=== PATIENT | female | born 1975 | race Caucasian/White ===

== ENCOUNTER 2024-11-11 11:01 | Outpatient (REF) | payer OTHER, SELFPAY ==
[2024-11-11 17:43] LABS: MANUAL DIFF FLAG NO
[2024-11-11 17:46] LABS: Hematocrit 39.9 % (37.0-47.0); Hemoglobin 12.7 g/dl (12.0-16.0); Imm Gran Abs Auto 0.04 X10*3/uL (0.00-0.03); Imm Gran Pct Auto 0.4 % (0.0-0.4); Lymphocytes Absolute Auto 1.3 X10*3/uL (1.2-4.9); Mean Corpuscular HGB Conc 31.8 g/dl (31.0-35.0); Mean Corpuscular Hemoglobin 26.2 pg (27.0-33.0); Mean Corpuscular Volume 82.3 fL (80.0-98.0); NRBC Abs Auto 0.000 X10*3/uL (0.0-0.012); NRBC Pct Auto 0.0 /100WBC (0.0-0.2); Platelet Count 320 X10*3/uL (160-400); Red Blood Count 4.85 X10*6/uL (4.20-5.50); White Blood Count 9.1 X10*3/uL (4.8-10.8)
[2024-11-11 18:21] LABS: Alanine Aminotransferase 18 U/L (0-31); Aspartate Amino Transferase 37 U/L (5-31); Cholesterol 193 mg/dL (<200); Estimated Glomerular Filt Rate > 60; HDL Cholesterol 66 mg/dL (>40); Triglycerides 145 mg/dL (<150)
[2024-11-16 16:08] LABS: Glucose-6-Phosphate Dehydrogen 18.8 U/g Hgb (7.0-20.5)
== END 2024-11-11 11:02 | disposition home or self-care (01) ==
LOC: HO.HKASLDS 11:01
PROVIDERS: PCP Internal Medicine; Visit Provider Internal Medicine Rheumatology
DX: M05.10 Rheumatoid lung disease with rheumatoid arthritis of unspecified site (principal); Z79.899 Other long term (current) drug therapy
CPT/HCPCS: 36415; 80061; 82565; 82955; 84450; 84460; 85025; 85652; 86140; 99202

== ENCOUNTER 2024-11-11 11:01 | Outpatient (AMB) | payer OTHER, SELFPAY ==
--- NOTE | 2024-11-11 11:03 | A.OFFVIS_ITS ---
Vital Signs 11/11/24 11:06 Height 5 in Weight 178 lb 9.191 oz BMI 5021.5 BP 130/90 H Blood Pressure Location Rt brachial Position Sitting Pulse 70 Pulse Source Pulse Oximeter Pulse Oximetry (%) 99 Oxygen Delivery Method Room Air Intake Visit Reasons: RA/Hand wrist pain/PCP REF Intake Note: New Patient presents today with RA.Patient states that she is having pain in bilateral pain even taking xeljanz and put herself on a strict diet such as taking out red meat and sugars. Accompanied by: Self / Same As Patient Allergies Ramicade Allergy (Unknown, Uncoded 09/08/19 00:00) stomach upset HPI HPI RA/Hand wrist pain/PCP REF: Details: She takes prednisone 10mg 3-4 times a week for joint pain so she can be functional. She has 3 children with the youngest being 1 years old. She has a hard time getting them dressed. Therefore she takes prednisone which allows her to be more functional. On average her pain is 8 out of 10 intensity. On xeljanz since 02/2024. MS 4-5 hours. No recent illness. Dx seropositive RA 20 years ago. She developed ILD after RA dx while she was on methotrexate and was a smoker. She was then diagnosed with RA related interstitial lung disease after a biopsy, which did not reveal methotrexate related lung toxicity. She follows with pulmonology Dr. Veronique PEREZ with wheezing or phlem. She used to be a patient of Dr. Awad. On methotrexate she had hair loss. She was on etanercept with some benefit, which then lost efficacy. She had treatment failure with Humira. She had an infusion reaction with infliximab where she felt diaphoretic and vomited. She had secondary treatment failure with abatacept IV after 7 years of effectiveness. PFSH Medical History FH: cholecystectomy Rheumatoid arthritis Osteoarthritis Migraines Interstitial lung disease Fibromyalgia Surgical History Hx of tonsillectomy Previous section Physical Exam Vital Signs: Last Vital Signs Pulse 70 11/11/24 11:06 BP 130/90 H 11/11/24 11:06 Pulse Ox 99 11/11/24 11:06 Oxygen Delivery Method Room Air 11/11/24 11:06 BMI result Body Mass Index 5021.5 Const Other: General: Comfortable CVS: RRR Respiratory: clear to auscultation bilaterally. Good respiratory effort Skin: No lesions seen MSK: Tender to palpate bilateral MCPs, IPs, PIPs, wrists, left elbow, bilateral shoulders with synovitis of right 3rd MCP, 2nd and 3rd MCP, left wrists. She has synovitis of right knee. Tenderness of bilateral knees and MTPs. Bilateral hallux valgus present with tenderness. Assessment & Plan Assessment & Plan (1) Rheumatoid arthritis, seropositive: Comment: Inflammatory arthritis is not controlled. High disease activity per CDAI 46. She has failed treatment with tofacitinib. We discussed next steps with DMARD therapy. 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 Treatment for joint disease has to take into consideration with her underlying ILD and if it has progressed. We discussed treatment to control inflammatory arthritis with conventional DMARD therapy with hydroxychloroquine and sulfasalazine, which do not have risk of pulmonary toxicity. I would avoid leflunomide due to possi bility of pulmonary toxicity. Discussed risks, benefits and drug monitoring. Patient agrees with plan. We also discussed considering tocilizumab biologic treatment if patient's disease is not controlled with conventional DMARDs. Rheumatology history: Anti CCP antibody for 12.6, rheumatoid factor greater than 250. Diagnosed 20 years ago. Initially she was on methotrexate but it was discontinued due to concern of development of interstitial lung disease/pulmonary toxicity. Etanercept secondary treatment failure, Humira treatment failure, infliximab infusion reaction, abatacept secondary treatment failure after 7 years, tofacitinib February 2024 to current treatment failure. Code(s): M05.9 - Rheumatoid arthritis with rheumatoid factor, unspecified Category: Medical Plan: Information on DMARD therapy given to patient She will continue Xeljanz 5 mg b.i.d. until lab results are back She will take prednisone 10 mg prn joint pain and swelling with a goal to discontinue prednisone after inflammatory arthritis is controlled on DMARD therapy Labs for disease and drug monitoring ordered. After lab results are back, we will send prescription for hydroxychloroquine 400 mg daily and sulfasalazine 500 mg twice a day. She will then have labs 1 month after starting sulfasalazine with CBC, creatinine, AST and ALT. Patient will then call office for clinical update. If she is tolerating regimen without side effects, I will then increase sulfasalazine to 1000 mg twice a day. X-rays bilateral hands, feet and knees ordered Chest x-ray ordered for baseline Return to clinic in 3 months (2) Diffuse interstitial rheumatoid disease of lung: Code(s): M05.10 - Rheumatoid lung disease with rheumatoid arthritis of unspecified site Category: Medical Plan: Follow up with pulmonologists Dr. Hernández. I recommend that she have PFTs every 6 months. If it has been more than 2 years since she has had HRCT, I recommend follow-up study to evaluate for progression of ILD ? 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 Oszgyax-6-Ukeqziozm Dehydrogen Today M05.10 - Rheumatoid lung disease with rheumatoid arthritis of unspecified site, M05.9 - Rheumatoid arthritis with rheumatoid factor, unspecified XR Foot Nigel 3V Today M05.10 - Rheumatoid lung disease with rheumatoid arthritis of unspecified site, M05.9 - Rheumatoid arthritis with rheumatoid factor, unspecified XR Hand Bilat min 3v Today M05.10 - Rheumatoid lung disease with rheumatoid arthritis of unspecified site, M05.9 - Rheumatoid arthritis with rheumatoid factor, unspecified XR chest 2V Today M05.10 - Rheumatoid lung disease with rheumatoid arthritis of unspecified site, M05.9 - Rheumatoid arthritis with rheumatoid factor, unspecified XR Knee Nigel 3V Today M05.9 - Rheumatoid arthritis with rheumatoid factor, unspecified, Z79.899 - Other fci (current) drug therapy Erythrocyte Sedimentation Rate 1 Month Z79.899 - 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 Complete Blood Count Auto Diff Today Z79.899 - Other fci (current) drug therapy Erythrocyte Sedimentation Rate Today Z79.899 - Other fci (current) drug therapy Lipid Panel Today Z79.899 - 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 Complete Blood Count Auto Diff 1 Month Z79.899 - Other fci (current) drug therapy Alanine Aminotransferase 1 Month Z79.899 - 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 Aspartate Amino Transferase 1 Month Z79.899 - 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
[2024-11-11 11:06] VITALS: BP 130/90; PULSE 70; O2SAT 99; BMI 5021.5
--- OUTSIDE RECORDS SUMMARY | 2024-11-11 12:36 | XMS_ITS | Clinical Summary ---
Author Organization [facility] Address [id number] [place] [id number] Care Team Providers Care Neurodiagnostic Technologist Name Role Phone Mary Jane Suarez MD Primary Care Provider [phone] Encounters Date Type Department Care Team Description 08/11/[address] [place] [address] Hank Piper MD from Last 3 Months Surgical History Surgery Date Site/Laterality Comments CHOLECYSTECTOMY PROCEDURE: HISTORICAL CHOLECYSTECTOMY Medical History Medical History Date Comments Rheumatoid arthritis, adult ([facility] V24, [facility] V28) 07/24/2017 DX:Rheumatoid arthritis, liane lt ([facility]) Asthma 07/24/2017 DX:Asthma Chronic interstitial lung di sease ([facility] V24, [facility] V28) 07/24/2017 DX:Chronic interstitial ailyn g disease ([facility]) Chronic sinusitis 07/24/2017 DX:Chronic sin usitis Post-nasal drip 07/24/2017 DX:Post-nasal dr ip GERD (gastroesophageal reflux disease) 07/24/2017 DX:GERD (gastroesophageal reflux disease) Hiatal hernia 07/24/2017 DX:Hiatal hernia Social History Tobacco Use Types Packs/Day Years Used Date Smoking Tobacco: Former Cigarettes Smokeless Tobacco: Never Alcohol Use Standard Drinks/Week Comments No 0 (1 standard drink = 0.6 oz pur e alcohol) Comments Unknown Sex and Gender Information Value Date Recorded Sex Assigned at Not on file Legal Sex Female 12:37 PM EST Gender Identity Not on file Sexual Orientation Not on file Obstetrics History Last Filed Vital Signs Vital Sign Reading Time Taken Comments Blood Pressure 94/68 01/03/2024 10:49 AM EDT Si tting L Arm Pulse 74 01/03/2024 10:49 AM EDT Temperature - - Respiratory Rate - - Oxygen Saturation - - Inhaled Oxygen Concentration - - Weight 90.7 kg (200 lb) 01/03/2024 10:49 AM EDT Height 165.1 cm (5' 5 ) 01/03/2024 10:49 AM EDT Body Mass Index 33.28 01/03/2024 10:49 AM EDT Plan of Treatment Upcoming Encounters Date Type Department Care Team (Late st Contact Info) Description 12/19/2024 11:30 AM EDT Office Visit Pulmonolgy - [place] [address] [place] [address] Hank Piper MD [address] [place] [phone] Health Maintenance Due Date Last Done Comments Breast Cancer Screening 1975 DTaP,Tdap,and Td Vaccines (1 - Tdap) 01/10/1995 Hepatitis B Vaccines (1 of 3 - 19+ 3-dose series) 01/10/1995 Pneumococcal Vaccine: Pediatrics (0 to 5 Years) and At-Risk Patients (6 to 49 Years) (1 of 2 - PCV) 01/10/1995 Cervical Cancer Screening: P ap Smear 01/10/1997 Colorectal Cancer Screening: Colonoscopy 02/18/2022 HIV Screening 02/18/2022 Hepatitis C Screening 02/18/2022 Social Influencers of Health Screening 02/18/2022 Depression Screening 03/12/2024 COVID-19 Vaccine (4 - 2024-2 6 season) 2024 04/22/2021, 07/02/2020, 06/04/2020 Influenza Vaccine (#1) 2024 HIB Vaccines Aged Out No longer eligi ble based on patient's age to complete this topic HPV Vaccines Aged Out No longer eligi ble based on patient's age to complete this topic Hepatitis A Vaccines Aged Out No long er eligible based on patient's age to complete this topic IPV Vaccines Aged Out No longer eligi ble based on patient's age to complete this topic MMR Vaccines Aged Out No longer eligi ble based on patient's age to complete this topic Meningococcal ACWY Vaccine Aged Out N o longer eligible based on patient's age to complete this topic Meningococcal B Vaccine Aged Out No l onger eligible based on patient's age to complete this topic RSV Immunization Patients Under 20 months Aged Out No longer eligible b ased on patient's age to complete this topic Varicella Vaccines Aged Out No longer eligible based on patient's age to complete this topic Care Teams Neurodiagnostic Technologist Relationship Specialty Start Date End Date Mary Jane Suarez MD [address] [place] [id number] PCP - General Internal Medicine 05/28/12
--- OUTSIDE RECORDS SUMMARY | 2024-11-11 12:36 | XMS_ITS | Encounter Summary ---
Author Organization [facility] Address [address] [place] [phone] Phone Care Team Providers Care Bottle Gauger Name Role Phone Mary Jane Suarez MD Primary Care Provider [phone] Encounter Details Date Type Department Care Team (Late st Contact Info) Description 04/19/2024 Procedure Pass [facility], Ct Scan - [facility] [address] [place] [address] Social History Tobacco Use Types Packs/Day Years Used Date Smoking Tobacco: Former Cigarettes Smokeless Tobacco: Never Alcohol Use Standard Drinks/Week Comments Never 0 (1 standard drink = 0.6 oz pur e alcohol) Education Answer Date Recorded Are you interested in more education? Not on hayley e 12/14/2022 Are you concerned about learning? Not on file 12/14/2022 No 12/14/2022 No 12/14/2022 Digital Access Answer Date Recorded No 12/14/2022 No 12/14/2022 Reliable internet access at home? Not on file 12/14/2022 Device with a working camera? Not on file Intimate Partner Violence Answer Date R ecorded Are you denied basic needs s uch as food, clothing, or medical care? No 04/19/2024 In the past 12 months have y ou been in a relationship with a person who hurts, threatens, or tries to control you? No 04/19/2024 Are you denied basic needs s uch as food, clothing, or medical care? No 04/19/2024 In the past 12 months have y ou been in a relationship with a person who hurts, threatens, or tries to control you? No 04/19/2024 Comments No Sex and Gender Information Value Date Recorded Sex Assigned at Female 04/19/2024 3:25 AM EST Legal Sex Female 11:27 AM EDT Gender Identity Patient Doesn't Know 04/19/2024 3:25 AM EST Sexual Orientation Choose not to disclose 2024 3:25 AM EST documented as of this encounter Functional Status * Calculated C-SSRS Risk Score (Lifetime/Recent) Answer Date of Assessment Author No Risk Indicated 04/19/2024 7:11 AM Valorie Dailey RN * [place] Suicide Severity Rating Scale (Screener/Recent Self-Report) Question Answer Date of Assessment Author 1. Wish to be (Past 1 Month) No 04/19/2024 7:11 AM Kaylen Greenfield RN 2. Non-Specific Active Suicidal Thoughts (Past 1 Month) No 04/19/2024 7:11 AM Kaylen Greenfield RN 6. Suicidal Behavior (Lifetime) No 04/19/2024 7:11 AM Kaylen Greenfield RN documented as of this encounter Plan of Treatment Not on file documented as of this encounter Visit Diagnoses Not on filedocumented in this encounter Additional Health Concerns Infection Onset Date Last Indicated Resolved Time CoV-Risk 04/16/2024 04/16/2024 04/27/2024 1:22 AM EST documented as of this encounter Care Teams Bottle Gauger Relationship Specialty Start Date End Date Mary Jane Suarez MD [address], [place] [address] PCP - General Internal Medicine 12/04/22 documented as of this encounter Additional Source Comments The information contained in this document represents components of the legal health record. It is not the complete legal health record.[facility]
--- OUTSIDE RECORDS SUMMARY | 2024-11-11 12:36 | XMS_ITS | Clinical Summary ---
Author Organization [facility] Address [address] [place] [phone] Phone Care Team Providers Care Technical Business Analyst Name Role Phone Mary Jane Suarez MD Primary Care Provider [phone] Allergies Active Allergy Reactions Criticality Noted Date Comments Infliximab Medium 12/25/2022 Nausea and vomiting Medications losartan (COZAAR) 25 MG tabletIndicatio ns:hypertension Take 25 mg by mouth daily. Indications: high blood pressure Active albuterol-budes onide 90-80 mcg/actuation HFAAIndications :bronchospasm prevention with asthma,as needed Take 1 Bottle by nebulization daily. Indications: bronchospasm prevention with asthma, as needed Active ferrous sulfate 325 mg (65 mg augustine iron) tablet Take 1 tablet by mouth daily. Active ascorbic acid, vitamin C, (VITAMIN C) 500 MG tablet Take 500 mg by mouth daily. Active cholecalciferol (VITAMIN D3) 2,000 unit capsule Take 2,000 Units by mouth daily. Active MAGNESIUM ORAL Take by mouth as needed. Active esomeprazole (NEXIUM) 40 MG capsule Take 80 mg by mouth daily. Active folic acid (FOLVITE) 1 MG tablet Take 1,000 mcg by mouth daily. Active tofacitinib (XELJANZ) 5 mg Tab tabletIndicatio ns:Rheumatoid arthritis involving multiple sites with positive rheumatoid factor Take 1 tablet (5 mg total) by mouth 2 (two) times a day. 60 tablet 11 4 Active predniSONE (DELTASONE) 10 MG tabletIndicatio ns:Rheumatoid arthritis flare TAKE 1 TABLET (10 MG TOTAL) BY MOUTH DAILY WITH BREAKFAST. 30 tablet 5 Active Additional Information Patient taking differently:10 mg OralAs needed, Reported on 08/06/2024 predniSONE (DELTASONE) 5 MG tabletIndicatio ns:Rheumatoid arthritis involving multiple sites with positive rheumatoid factor Take 3 tablets (15 mg total) by mouth daily with breakfast for 7 days, THEN 2 tablets (10 mg total) daily with breakfast for 9 days, THEN 1 tablet (5 mg total) daily with breakfast for 14 days. 53 tablet 5 Active leflunomide (ARAVA) 20 MG tabletIndicatio ns:Rheumatoid arthritis involving multiple sites with positive rheumatoid factor Take once daily with food as follows, one half tab x 4 days, then 1 full tab thereafter 30 tablet 5 Active Additional Information Patient not taking.Reported on 08/08/2024 Active Problems Problem Noted Date Diagnosed Date High risk medication use 08/06/2024 Overview (08/06/2024): Chest x-ray 04/2024 reviewed Assessment & Plan (08/06/2024 1:09 PM EDT): Updated labs prior to possible change from Rah inhibitor to biologic agent +/ nonbiologic DMARD. She is not currently at risk of . Long-term current use of tofacitinib 04/14/2024 Assessment & Plan (04/14/2024 12:21 PM EST): Currently on hold due to upper respiratory congestion. Once assured no influenza, RSV or COVID- 19 and symptoms resolve may need to restart daily Xeljanz. Monitor for any unusual abdominal pain, nausea, vomiting, melena or hematochezia. Get monitoring labs today on her way out of my office and prior to next visit in 3 months-standing orders in epic Class 1 obesity due to exces s calories with serious comorbidity and body mass index (BMI) of 31.0 to 31.9 in adult 04/14/2024 Assessment & Plan (04/14/2024 12:22 PM EST): Congratulations on 6 pounds weight loss from 198 on 01/23/2024 down to 192 today and keep it off. Continue diligent portion control. Limit concentrated sugars, saturated fats and calories in the diet. Keep well-hydrated. If unable to achieve expected goal consider formal dietary/nutritional support. Acute rhinitis 04/14/2024 Assessment & Plan (04/14/2024 12:23 PM EST): If not able to be checked by PCP and symptoms not improving despite conservative measures including proper hydration, inhaling warm vapor twice daily, using Savannah pot, Vicks and Sudafed consider urgent care checkup for influenza, COVID-19 and RSV at urgent care On abatacept therapy 01/23/2024 Assessment & Plan (02/19/2024 2:30 PM EST): Monitor for unusual fever, chills, night sweats, cough, diarrhea. Avoid sick contacts and keep up to date on age-appropriate screenings and preventive strategies including vaccinations. Hold Orencia if feeling sick, running fever or taking antibiotics. Make sure to inform any new MD, PA, K 12 PRINCIPAL about treatment with Orencia particularly in emergency situations. Sicca syndrome 01/23/2024 Overview (08/06/2024): SSA/SSB negative/negative 01/2024 Assessment & Plan (04/14/2024 11:41 AM EST): Keep well-hydrated. Avoid spicy and acidic foods. Diligent eyes and mouth hygiene. Regular ocular and dental checkups. Assessment & Plan (02/19/2024 2:28 PM EST): Keep well-hydrated. Avoid spicy and acidic foods. Diligent eyes and mouth hygiene. Regular ocular and dental checkups. Primary osteoarthritis involving multiple joints 02/12/2023 Assessment & Plan (04/14/2024 11:41 AM EST): Continue joint protection, energy conservation. Gentle, regular exercise routine. Avoid falls, injuries, overuse. Work on bringing her body weight into ideal range for her height. She may benefit from topical cream such as Arnica, Biofreeze, Aspercreme versus medicated patches such as salonpas, icy hot patch 2-3 times daily and if necessary at bedtime x 3 weeks. She may take Tylenol 650 mg up to 3 times daily as needed for joint pain. Assessment & Plan (02/19/2024 2:27 PM EST): Continue joint protection, energy conservation. Gentle, regular exercise routine. Avoid falls, injuries, overuse. Work on bringing her body weight into ideal range for her height. She may benefit from topical cream such as Arnica, Biofreeze, Aspercreme versus medicated patches such as salonpas, icy hot patch 2-3 times daily and if necessary at bedtime x 3 weeks. She may take Tylenol 650 mg up to 3 times daily as needed for joint pain. Assessment & Plan (08/14/2023 10:56 AM EDT): Osteoarthritis in multiple joints exacerbated by physical activity. She can safely take Tylenol 650 as needed. Assessment & Plan (02/12/2023 1:37 PM EST): Osteoarthritis in multiple joints only symptomatic with prolonged activity. She can continue with Tylenol as needed. Medication monitoring encounter 02/12/2023 Assessment & Plan (02/12/2023 1:37 PM EST): Surveillance labs to be done today. Rheumatoid arthritis involvi ng multiple sites with positive rheumatoid factor 12/14/2022 Overview (08/06/2024): Rheumatoid arthritis-ILD; dx'd at 29 yrs of age (p/w ILD); follows with corporate director of human resources Dr. Piper through [facility] Medication hx: Methotrexate resulted in hair loss / poorly tolerated Etanercept - lost efficacy Adalimumab - tx failure Infliximab - infusion reaction Abatacept IV for many years, discontinued due to progressive treatment failure starting September 2023 Tofacitinib 02/2024 to current No h/o tocilizumab, sarilumab, leflunomide, or rituximab Assessment & Plan (08/06/2024 1:15 PM EDT): Prolonged morning stiffness and active synovitis of multiple small and intermediate joints bilaterally on tofacitinib monotherapy. We discussed but deferred intra-articular steroid to her left wrist today per patient preference. She will have updated labs, and may require short-term prednisone taper. I have provided her written information on leflunomide, tocilizumab, and rituximab. She stated she would like to resume abatacept subcutaneously, which was previously effective her for her for many years. However, per chart review, she did experience treatment failure with this medication last year, so I am reluctant to resume it. If she is able to tolerate leflunomide to gather with a biologic agent that would likely be more effective than monotherapy for this woman with extra-articular disease. She reports being asymptomatic with respect to her ILD, though ideally I would coordinate care with her established corporate director of human resources. Assessment & Plan (04/14/2024 12:18 PM EST): She was very well-controlled on every 4 weeks Orencia infusions in August 2023 however despite increasing dose from 750 to 1000 mg every 4 weeks beginning in September 2023 she had more stiffness in the morning and lots more swelling, warmth, stiffness in the joints of her hands and wrists in addition to elevated ESR and CRP. She has switched monthly IV Orencia to daily Xeljanz (tofacitinib) in early February 2024 and tolerates it well She is holding it for the last 3 days due to nasal and sinus congestion. Continue joint protection, energy conservation in addition to gentle, regular exercise routine as educated in OT and PT. Avoid falls, injuries, overuse and sick contacts. Get monitoring labs prior to next visit in 3 months and call if problems or questions in the interim. Assessment & Plan (02/19/2024 2:26 PM EST): She was very well-controlled on every 4 weeks Orencia infusions in August 2023 however despite increasing dose from 750 to 1000 mg every 4 weeks beginning in September 2023 she has more stiffness in the morning and lots more swelling, warmth, stiffness in the joints of her hands and wrists in addition to elevated ESR and CRP. She is interested in trying a different medication if possible by mouth hoping for better control of disease and no need to come to the hospital every 4 weeks for infusion. I have offered her oral Rah inhibitor Xeljanz (tofacitinib) 5 mg twice daily versus Rinvoq (upadacitinib) 15 mg daily and requested couple of additional tests including Sjogren's antibody in view of reported dryness in her eyes and mouth. She is educated to update her vaccination status prior to starting either Xeljanz or Rinvoq. Continue joint protection, energy conservation in addition to gentle, regular exercise routine as educated in OT and PT. Avoid falls, injuries, overuse and sick contacts. Get monitoring labs prior to next visit in 2 months and call if problems or questions in the interim. Assessment & Plan (08/14/2023 10:56 AM EDT): Seropositive rheumatoid arthritis very well-controlled on Orencia infusions every 4 weeks. Her next infusion will be in September. I adjusted the dose from 750 mg to 1000 mg. She will have labs drawn at her next infusion. Assessment & Plan (02/12/2023 1:37 PM EST): Seropositive rheumatoid arthritis well-controlled on Orencia every 4 weeks with no active synovitis or swelling. Her last infusion was sometime in mid December adequately [facility] infusion. She has another infusion appointment coming up in the middle of February. She has stable interstitial lung disease with stable dyspnea on exertion and follows with Dr. Piper. Encounters Date Type Department Care Team Description 09/11/2024 Telephone [facility] Rheumatology [address] [place] [address] [place] [address] Franci Tejeda MD, MPH Medication Refill 09/09/2024 Refill [facility] Rheumatology [address] [place] [address] [place] [address] Franci Tejeda MD, MPH Medication Refill 09/02/2024 Telephone [facility] Rheumatology [address] [place] [address] [place] [address] Maria Victoria Desir MD Flare Up 08/11/2024 Orders Only [facility] Rheumatology [address] [place] [address] [place] [address] Provider, MD Billy from Last 3 Months Family History Medical History Relation Comments No Known Problems Daughter Diabetes Father Hypertension Father No Known Problems Mother Relation Status Comments Daughter Alive Father Mother Alive Social History Tobacco Use Types Packs/Day Years Used Date Smoking Tobacco: Former Cigarettes Smokeless Tobacco: Never Tobacco Cessation:Counseling Given: Not Answered Alcohol Use Standard Drinks/Week Comments Never 0 [...] not to disclose 2024 3:25 AM EST Last Filed Vital Signs Vital Sign Reading Time Taken Comments Blood Pressure 122/72 08/06/2024 9:35 AM EDT Pulse 64 08/06/2024 9:35 AM EDT Temperature 36.6 C (97.8 F) 04/19/2024 1:18 PM EST Respiratory Rate 16 04/19/2024 1:18 PM EST Oxygen Saturation 98% 08/06/2024 9:35 AM EDT Inhaled Oxygen Concentration - - Weight 81.2 kg (179 lb) 08/06/2024 9:35 AM EDT Height 165.1 cm (5' 5 ) 08/06/2024 9:35 AM EDT Body Mass Index 29.79 08/06/2024 9:35 AM EDT Plan of Treatment Health Maintenance Due Date Last Done Comments Adult Td,Tdap Booster 1976 LIPID PANEL 1976 DEPRESSION SCREENING 1988 SMOKING Hx and SMOKELESS TOBACCO SCREENING 01/10/1989 HIV ONE-TIME SCREENING (18-65 YEARS) 01/10/1994 PAP SMEAR 01/10/1997 MAMMOGRAM 2016 COLOGUARD 01/10/2021 COLONOSCOPY 01/10/2021 COLORECTAL CANCER SCREENING 01/10/2021 FIT TEST 01/10/2021 FOBT 01/10/2021 SIGMOIDOSCOPY 01/10/2021 VIRTUAL COLONOSCOPY 01/10/2021 COVID-19 VACCINE ( season) 2023 04/09/2022, 04/22/2021, 07/02/2020, Additional history exists CREATININE LEVEL 08/06/2025 08/06/2024, 07/2024, 04/14/2024, Additional history exists POTASSIUM LEVEL 08/06/2025 08/06/2024, 020 07/2024, 04/14/2024, Additional history exists SCREENING FOR DIABETES 08/07/2027 08/06/2024 PNEUMOCOCCAL VACCINES (0-49 years) Completed 07/02/2023 HEPATITIS C SCREENING Completed 08/06/2024 HEPATITIS A VACCINES Aged Out No long er eligible based on patient's age to complete this topic HIB VACCINES Aged Out No longer eligi ble based on patient's age to complete this topic MENINGOCOCCAL VACCINES (ACWY) Aged Out No longer eligible based on patient's age to complete this topic MENINGOCOCCAL VACCINES (B) Aged Out N o longer eligible based on patient's age to complete this topic Medical Devices Not on file Procedures Procedure Name Priority Date/Time Associated Diagnosis Comments HEPATITIS C ANTIBODY, QUALITATIVE Routine 08/06/2024 10:36 AM EDT High risk medication use COMPREHENSIVE METABOLIC PANEL Routine 08/06/2024 10:36 AM EDT Rheumatoid arthritis involving multiple sites with positive rheumatoid factor High risk medication use from Last 3 Months or Most Recently Relevant to Health Maintenance Results * Comprehensive metabolic panel (08/06/2024 10:36 AM EDT) SODIUM 135 133 - 146 mmol/L [facility] POTASSIUM 3.6 3.3 - 5.1 mmol/L [facility] CHLORIDE 100 96 - 108 mmol/L [facility] CO2 26 21 - 35 mmol/L [facility] BUN 12 6 - 19 mg/dL [facility] CREATININE 0.60 0.5 - 1.5 mg/dL [facility] GLUCOSE 85 70 - 99 mg/dL [facility] ALBUMIN 4.3 3.9 - 4.8 g/dL [facility] TOTAL PROTEIN 7.8 6.5 - 8.0 g/dL [facility] CALCIUM 9.5 8.4 - 10.3 mg/dL [facility] ALKALINE PHOSPHATASE 75 39 - 117 U/L [facility] TOTAL BILIRUBIN 0.4 0.0 - 1.2 mg/dL [facility] AST 25 0 - 37 U/L [facility] ALT 10 0 - 40 U/L [facility] GLOBULIN 3.5 1 - 4.8 g/dL [facility] EGFR 111 >59 mL/min/1.7 3m2 [facility] Comment:Estimated glomerular filtration rate calculated using the CKD-EPI refit equation. ANION GAP 13 10 - 20 mmol/L [facility] Blood 08/06/2024 10:3 6 AM EDT 08/06/2024 10:50 AM EDT Franci Tejeda MD, MPH LAB BLOOD ORDERABLES Fin al Result Performing Organization Address City/[facility] Co de Phone Number [address] [address] * Hepatitis C antibody, qualitative (08/06/2024 10:36 AM EDT) HCV NON-REACTIV E NON-REACTI VE [facility] Blood 08/06/2024 10:3 6 AM EDT 08/06/2024 10:50 AM EDT Franci Tejeda MD, MPH LAB BLOOD ORDERABLES Fin al Result Performing Organization Address City/[facility]/ZIP Co de Phone Number [facility] [address] [place] [address] from Last 3 Months or Most Recently Relevant to Health Maintenance Insurance [address] [address] [employer] Care Teams Technical Business Analyst Relationship Specialty Start Date End Date Mary Jane Suarez MD [address] [place] [address] PCP - General Internal Medicine 12/04/22 Additional Source Comments The information contained in this document represents components of the legal health record. It is not the complete legal health record.[facility]
== END 2024-11-11 11:56 | disposition home or self-care (01) ==
LOC: HO.RHES 11:01
PROVIDERS: PCP Internal Medicine; Visit Provider Internal Medicine Rheumatology
DX: M05.9 Rheumatoid arthritis with rheumatoid factor, unspecified (principal); M05.10 Rheumatoid lung disease with rheumatoid arthritis of unspecified site; Z79.899 Other long term (current) drug therapy
CPT/HCPCS: 99204; G2211

== ENCOUNTER 2024-11-25 11:04 | Outpatient (REF) | payer OTHER, SELFPAY ==
[2024-11-25 14:17] LABS: Alanine Aminotransferase 15 U/L (0-31); Aspartate Amino Transferase 22 U/L (5-31)
--- OUTSIDE RECORDS SUMMARY | 2024-11-25 15:04 | XMS_ITS | Clinical Summary ---
Author Organization [facility] Address [address] [place] [phone] Care Team Providers Care Inclusion Special Education Teacher Name Role Phone Mary Jane Suarez MD Primary Care Provider [phone] Encounters Date Type Department Care Team Description 11/18/[address] [place] [address] Hank Piper MD from Last 3 Months Surgical History Surgery Date Site/Laterality Comments CHOLECYSTECTOMY PROCEDURE: HISTORICAL CHOLECYSTECTOMY Medical History Medical History Date Comments Rheumatoid arthritis, adult ([facility] V24, [facility] V28) 07/24/2017 DX:Rheumatoid arthritis, liane lt ([facility]) Asthma 07/24/2017 DX:Asthma Chronic interstitial lung di sease ([facility] V24, [facility] V28) 07/24/2017 DX:Chronic interstitial ailyn g disease ([facility]) Chronic sinusitis 07/24/2017 DX:Chronic sin usitis Post-nasal [...] Care Team (Late st Contact Info) Description 12/09/2024 11:00 AM EDT Appointment [facility] Pulmonary [address] [place] [phone] 12/19/2024 11:30 AM EDT Office Visit Pulmonolgy - [place] 175 [facility] [address] [place] [phone] Hank Piper MD 175 [facility] [address] [place] [address] Health Maintenance Due Date Last Done Comments [...] on patient's age to complete this topic Insurance MEDICAID - [place] Care Teams Inclusion Special Education Teacher Relationship Specialty Start Date End Date Mary Jane Suarez MD [address] [place] [address] PCP - General Internal Medicine 05/28/12
--- OUTSIDE RECORDS SUMMARY | 2024-11-25 15:04 | XMS_ITS | Encounter Summary ---
Author Organization [facility] Address [address] [place] [phone] Care Team Providers Care Distribution Manager Name Role Phone Mary Jane Suarez MD Primary Care Provider [phone] Reason for Visit * Reason Onset Date Comments Rheumatology notes 11/18/2024 Encounter Details Date Type Department Care Team (Late st Contact Info) Description [facility]/18[facility] [place] [facility] [address] [place] [phone] Hank Piper MD 175 [facility] [address] [place] [address] Social History Tobacco Use Types Packs/Day Years Used Date Smoking Tobacco: Former Cigarettes Smokeless Tobacco: Never Alcohol Use Standard Drinks/Week Comments No 0 (1 standard drink = 0.6 oz pur e alcohol) Comments Unknown Sex and Gender Information Value Date Recorded Sex Assigned at Not on file Legal Sex Female 12:37 PM EST Gender Identity Not on file Sexual Orientation Not on file documented as of this encounter Progress Notes * Hank Piper MD - 11/18/2024 9:03 PM EDT Please schedule her for pft prior to visit * Reuben Lozano MA - 11/18/2024 1:46 PM EDT Printed and on Dr. Piper desk. Please review. * Yun Castillo - 11/18/2024 1:04 PM EDT [facility] Rhe[facility]ology office notes received. Attached to encounter documented in this encounter Plan of Treatment Upcoming Encounters Date Type Department Care Team (Late st Contact Info) Description 12/09/2024 11:00 AM EDT Appointment [facility] Pulmonary [address] [place] [address] 12/19/2024 11:30 AM EDT Office Visit Pulmonolgy - [place] [address] [phone] Hank Piper MD [address] [address] documented as of this encounter Visit Diagnoses Not on filedocumented in this encounter Care Teams Distribution Manager Relationship Specialty Start Date End Date Mary Jane Suarez MD [address] [place] [address] PCP - General Internal Medicine 05/28/12 documented as of this encounter
--- OUTSIDE RECORDS SUMMARY | 2024-11-25 15:04 | XMS_ITS | Encounter Summary ---
Author Organization [facility] Address [address] [place] [phone] Phone Care Team Providers Care Security System Installer Name Role Phone Mary Jane Suarez MD Primary Care Provider [phone] Encounter Details Date Type Department Care Team (Late st Contact Info) Description 04/19/2024 Procedure Pass [facility], Ct Scan - [facility] [address] [place] [address] Social History Tobacco Use Types Packs/Day Years [...] 04/19/2024 7:11 AM Valorie Dailey RN * [place] Suicide Severity Rating Scale (Screener/Recent Self-Report) Question [...] documented as of this encounter Care Teams Security System Installer Relationship Specialty Start Date End Date Mary Jane Suarez MD [address], [place] [address] PCP - General Internal Medicine 12/04/22 documented as of this encounter Additional Source Comments The information contained in this document represents components of the legal health record. It is not the complete legal health record.[facility]
== END 2024-11-25 11:05 | disposition home or self-care (01) ==
LOC: HO.HKASLDS 11:04
PROVIDERS: Visit Provider Internal Medicine Rheumatology
DX: R74.01 Elevation of levels of liver transaminase levels (principal)
CPT/HCPCS: 36415; 84450; 84460

== ENCOUNTER 2024-12-01 08:41 | Outpatient (REF) | payer OTHER, SELFPAY ==
--- OUTSIDE RECORDS SUMMARY | 2024-12-01 10:04 | XMS_ITS | Clinical Summary ---
Author Organization [facility] Address [address] [place] [phone] Care Team Providers Care Sandblaster Paint Sprayer Name Role Phone Mary Jane Suarez MD Primary Care Provider [phone] Encounters Date Type Department Care Team Description 11/18/2024 Telephone Pulmonology - [address] [place] [address] Hank Piper MD from Last 3 Months Surgical History Surgery Date Site/Laterality Comments CHOLECYSTECTOMY PROCEDURE: HISTORICAL CHOLECYSTECTOMY Medical History Medical History Date Comments Rheumatoid arthritis, adult ([facility] V24, [facility] V28) 07/24/2017 DX:Rheumatoid arthritis, liane lt ([facility]) Asthma 07/24/2017 DX:Asthma Chronic interstitial lung di sease ([facility] V24, [facility] V28) 07/24/2017 DX:Chronic interstitial ailyn g disease ([facility]) Chronic sinusitis 07/24/2017 DX:Chronic sin usitis [...] Description 12/09/2024 11:00 AM EDT Appointment [facility] Pulmonary [address] [place] [phone] 12/19/2024 11:30 AM EDT Office Visit Pulmonology - [place] 175 [facility] [address] [place] [phone] Hank Piper MD 175 [facility] [address] [place] [address] Health Maintenance Due Date Last Done Comments [...] 04/22/2021, 07/02/2020, 06/04/2020 Influenza Vaccine (#1) 2024 RSV Immunization Adult Patients (1 - 1-dose 75+ series) 01/10/2051 HIB Vaccines Aged Out No longer eligi [...] topic Insurance MEDICAID - [place] Care Teams Sandblaster Paint Sprayer Relationship Specialty Start Date End Date Mary Jane Suarez MD [address] [place] [address] PCP - General Internal Medicine 05/28/12
--- OUTSIDE RECORDS SUMMARY | 2024-12-01 10:04 | XMS_ITS | Clinical Summary ---
Author Organization [facility] Address [address] [place] [address] Phone Care Team Providers Care Motor Racer Name Role Phone Mary Jane Suarez MD Primary Care Provider [phone] Allergies Active Allergy Reactions Criticality Noted Date Comments Infliximab Medium 12/25/2022 Nausea and vomiting Medications losartan (COZAAR) 25 MG tabletIndicatio ns:hypertension Take 25 mg by mouth daily. Indications: high blood pressure Active albuterol-budes onide 90-80 mcg/actuation HFAAIndications :bronchospasm prevention with asthma,as needed Take 1 Bottle by nebulization daily. Indications: bronchospasm prevention with asthma, as needed Active ferrous sulfate 325 mg (65 mg council iron) tablet Take 1 tablet by mouth [...] hydration, inhaling warm vapor twice daily, using Mary pot, Vicks and Sudafed consider urgent care [...] sure to inform any new MD, PA, WEAPONS AND TACTICS INSTRUCTOR about treatment with Orencia particularly in emergency [...] yrs of age (p/w ILD); follows with cycle counter Dr. Piper through [facility] Medication hx: Methotrexate resulted in hair [...] I would coordinate care with her established cycle counter. Assessment & Plan (04/14/2024 12:18 PM EST): [...] infusion was sometime in mid December adequately [place] infusion. She has another infusion appointment coming up in the middle of February. She has stable interstitial lung disease with stable dyspnea on exertion and follows with Dr. Piper. Encounters Date Type Department Care Team Description 12/01/2024 Refill [facility] Rheumatology [address] [place] [address] [place] [address] Maria Victoria Desir MD Medication Refill 09/11/2024 Telephone [facility] Rheumatology [address] [place] [address] [place] [address] Franci Tejeda MD, MPH Medication Refill 09/09/2024 Refill [facility] Rheumatology [address] [place] [address] [place] [address] Franci Tejeda MD, MPH Medication Refill 09/02/2024 Telephone [facility] Rheumatology [address] [place] [address] [place] [address] Maria Victoria Desir MD Flare Up from Last 3 Months Family History Medical [...] FOBT 01/10/2021 SIGMOIDOSCOPY 01/10/2021 VIRTUAL COLONOSCOPY 01/10/2021 INFLUENZA VACCINE (#1) 2024 , 12/15/2022, 12/14/2021 COVID-19 VACCINE ( season) 2024 04/09/2022, 04/22/2021, 07/02/2020, Additional history exists CREATININE LEVEL 08/06/2025 08/06/2024, 07/2024, 04/14/2024, Additional history exists POTASSIUM LEVEL 08/06/2025 08/06/2024, 02/0 07/2024, 04/14/2024, Additional history exists SCREENING FOR [...] EDT) SODIUM 135 133 - 146 mmol/L [facility] POTASSIUM 3.6 3.3 - 5.1 mmol/L [facility] CHLORIDE 100 96 - 108 mmol/L [facility] CO2 26 21 - 35 mmol/L [facility] BUN 12 6 - 19 mg/dL [facility] CREATININE 0.60 0.5 - 1.5 mg/dL [facility] GLUCOSE 85 70 - 99 mg/dL [facility] ALBUMIN 4.3 3.9 - 4.8 g/dL [facility] TOTAL PROTEIN 7.8 6.5 - 8.0 g/dL [facility] CALCIUM 9.5 8.4 - 10.3 mg/dL [facility] ALKALINE PHOSPHATASE 75 39 - 117 U/L [facility] TOTAL BILIRUBIN 0.4 0.0 - 1.2 mg/dL [facility] AST 25 0 - 37 U/L [facility] ALT 10 0 - 40 U/L [facility] GLOBULIN 3.5 1 - 4.8 g/dL [facility] EGFR 111 >59 mL/min/1.7 3m2 [facility] Comment:Estimated glomerular filtration rate calculated using the CKD-EPI refit equation. ANION GAP 13 10 - 20 mmol/L [facility] Blood 08/06/2024 10:3 6 AM EDT 08/06/2024 10:50 AM EDT us Franci Tejeda MD, MPH LAB BLOOD ORDERABLES Fin al Result [facility] [address] [place] [address] * Hepatitis C antibody, qualitative (08/06/2024 10:36 AM EDT) HCV NON-REACTIV E NON-REACTI VE [facility] Blood 08/06/2024 10:3 6 AM EDT 08/06/2024 10:50 AM EDT Franci Tejeda MD, MPH LAB BLOOD ORDERABLES Fin al Result [address] [address] from Last 3 Months or Most Recently Relevant to Health Maintenance [place] [address] [place] [address] [facility] ACO Care Teams Motor Racer Relationship Specialty Start Date End Date Mary Jane Suarez MD [address] [place] [address] PCP - General Internal Medicine 12/04/22 Additional Source Comments The information contained in this document represents components of the legal health record. It is not the complete legal health record.[facility]
--- OUTSIDE RECORDS SUMMARY | 2024-12-01 10:04 | XMS_ITS | Encounter Summary ---
Author Organization [facility] Address [address] [place] [address] Care Team Providers Care Service Station Equipment Mechanic Name Role Phone Mary Jane Suarez MD Primary Care Provider [phone] Reason for Visit * Reason Onset Date Comments Rheumatology notes 11/18/2024 Encounter Details Date Type Department Care Team (Late st Contact Info) Description 11/18/2024 Telephone Pulmonology - [place] [address] [facility] [address] [place] [phone] Hank Piper MD 175 [facility] [address] [place] [address] Social History Tobacco Use Types Packs/Day Years [...] Yun Castillo - 11/18/2024 1:04 PM EDT [facility] [place] office notes received. Attached to encounter documented in this encounter Plan of Treatment Upcoming Encounters Date Type Department Care Team (Late st Contact Info) Description 12/09/2024 11:00 AM EDT Appointment [facility] Pulmonary [address] [place] [address] 12/19/2024 11:30 AM EDT Office Visit Pulmonology - [place] [address] [address] Hank Piper MD [address] [address] documented as of this encounter Visit Diagnoses Not on filedocumented in this encounter Care Teams Service Station Equipment Mechanic Relationship Specialty Start Date End Date Mary Jane Suarez MD [address] [place] [address] PCP - General Internal Medicine 05/28/12 documented as of this encounter
--- OUTSIDE RECORDS SUMMARY | 2024-12-01 10:04 | XMS_ITS | Encounter Summary ---
Author Organization [facility] Address [address] [place] [address] Phone Care Team Providers Care Shop Cooper Name Role Phone Mary Jane Suarez MD Primary Care Provider [phone] Encounter Details Date Type Department Care Team (Late st Contact Info) Description 04/19/2024 Procedure Pass [facility], Ct Scan - [facility] [address] [place] [address] Social History Tobacco Use Types Packs/Day Years [...] 04/19/2024 7:11 AM Valorie Dailey RN * [place] Suicide Severity Rating Scale (Screener/Recent Self-Report) Question [...] documented as of this encounter Care Teams Shop Cooper Relationship Specialty Start Date End Date Mary Jane Suarez MD [address] [address] PCP - General Internal Medicine 12/04/22 documented as of this encounter Additional Source Comments The information contained in this document represents components of the legal health record. It is not the complete legal health record.[facility]
--- OUTSIDE RECORDS SUMMARY | 2024-12-01 10:04 | XMS_ITS | Encounter Summary ---
Author Organization [facility] Address [address] [facility] [address] [place] [address] Phone Care Team Providers Care Quoter Name Role Phone Mary Jane Suarez MD Primary Care Provider [phone] Reason for Visit * Reason Comments Medication Refill Encounter Details Date Type Department Care Team (Late st Contact Info) Description 12/01/2024 Refill [facility] Rheumatology [address] [place] [address] Maria Victoria Desir MD 22 [facility], [address] [place] [address] [email or web address] Medication Refill Social History Tobacco Use Types Packs/Day Years [...] AM EST documented as of this encounter Plan of Treatment Not on file documented as of this encounter Visit Diagnoses Diagnosis Rheumatoid arthritis involving multiple sites with positive rheumatoid factor documented in this encounter Care Teams Quoter Relationship Specialty Start Date End Date Mary Jane Suarez MD [address] [place] [address] PCP - General Internal Medicine 12/04/22 documented as of this encounter Additional Source Comments The information contained in this document represents components of the legal health record. It is not the complete legal health record.[facility]
[2024-12-01 14:05] LABS: HBS Num1 0.90 mIU/mL (0-7.99); HBc Num1 0.22 S/CO (0.00-0.79); HBsAGNum1 0.48 S/CO (0.00-0.99); Hepatitis B Surface Antigen Negative (Negative); ~HepC Num1 0.17 S/CO (0.00-0.79); ~Hepatitis B Surface Antibody NONREACTIVE (Nonreactive); ~Hepatitis C Antibody Nonreactive (Nonreactive)
[2024-12-04 05:10] LABS: TS Negative Control Passed; TS Panel A 1; TS Panel B 0; TS Positive Control Passed; TSpotTB Negative (Negative)
== END 2024-12-01 08:42 | disposition home or self-care (01) ==
LOC: HO.HKASLDS 08:41
PROVIDERS: Visit Provider Internal Medicine Rheumatology
DX: Z11.1 Encounter for screening for respiratory tuberculosis (principal); Z11.59 Encounter for screening for other viral diseases; M05.9 Rheumatoid arthritis with rheumatoid factor, unspecified; M05.10 Rheumatoid lung disease with rheumatoid arthritis of unspecified site; Z79.899 Other long term (current) drug therapy
CPT/HCPCS: 36415; 86481; 86704; 86706; 86803; 87340

== ENCOUNTER 2024-12-25 09:14 | Outpatient (REF) | payer OTHER, SELFPAY ==
--- OUTSIDE RECORDS SUMMARY | 2024-12-25 08:38 | XMS_ITS | Encounter Summary ---
Author Organization [facility] Address [address] [place] [address] Care Team Providers Care Search Marketing Specialist Name Role Phone Mary Jane Suarez MD Primary Care Provider [phone] Encounter Details Date Type Department Care Team (Latest Contact Info) Description 12/25/2024 8:38 AM EDT Hospital Encounter [facility] [address] [place] [address] ILD (interstitial lung disease) ([facility] V24, [facility] V28) Social History Tobacco Use Types Packs/Day Years Used Date Smoking Tobacco: Former Cigarettes Smokeless Tobacco: Never Alcohol Use Standard Drinks/Week Comments No 0 (1 standard drink = 0.6 oz pur e alcohol) Comments Unknown Sex and Gender Information Value Date Recorded Sex Assigned at Female 12/05/2024 1:27 PM EDT Legal Sex Female 12:37 PM EST Gender Identity Female 12/05/2024 1:27 PM EDT Sexual Orientation Not on file documented as of this encounter Plan of Treatment Upcoming Encounters Date Type Department Care Team (Late st Contact Info) Description 06/19/2025 9:45 AM EDT Office Visit Pulmonology - [place] [address] [facility] [address] [place] [phone] Hank Piper MD 175 [facility] [place] [address] [place] [address] Pending Results Name Type Priority Associated Diagnoses Date /Time XR Chest 2 Views Imaging Routine ILD (interstitial lung disease) ([facility] V24, [facility] V28) 12/25/2024 8:51 AM EDT Scheduled Orders Name Type Priority Associated Diagnoses Orde r Schedule XR Chest 2 Views Imaging Routine ILD (interstitial lung disease) ([facility] V24, [facility] V28) Once for 1 Occurrences starting 12/25/2024 until 12/25/2024 documented as of this encounter Visit Diagnoses Diagnosis ILD (interstitial lung disease) ([facility] V24, [facility] V28) Postinflammatory pulmonary fibrosis documented in this encounter Care Teams Search Marketing Specialist Relationship Specialty Start Date End Date Mary Jane Suarez MD [address] [place] [address] PCP - General Internal Medicine 05/28/12 documented as of this encounter
--- OUTSIDE RECORDS SUMMARY | 2024-12-25 10:27 | XMS_ITS | Clinical Summary ---
Author Organization [address] [facility] Address [address] [place] [address] Phone Care Team Providers Care Senior Caregiver Name Role Phone Mary Jane Suarez MD Primary Care Provider [phone] Allergies No known active allergies Medications acetaminophen (TYLENOL) 500 mg tablet Take 1 tablet (500 mg total) by mouth. Active albuterol 2.5 mg /3 mL (0.083 %) nebulizer solution TAKE 1 VIAL BY NEBULIZATION EVERY 4 HOURS NEEDED FOR WHEEZING FOR UP TO 30 DAYS. Active albuterol HFA (Ventolin HFA) 90 mcg/actuation inhaler INHALE 2 PUFFS INTO THE LUNGS EVERY 4 HOURS NEEDED FOR WHEEZING FOR UP TO 30 DAYS. 2 Active ascorbic acid (VITAMIN C) 500 mg tablet Take 1 tablet (500 mg total) by mouth daily. Active cetirizine (ZyrTEC) 10 mg tablet Take 1 tablet (10 mg total) by mouth. 5 Active cholecalciferol (VITAMIN D-3) 50 mcg (2,000 unit) capsule Take 1 capsule (2,000 Units total) by mouth daily. Active esomeprazole (NexIUM) [address] capsule Take 1 capsule (40 mg total) by mouth. 1 Active ferrous sulfate 325 mg (65 mg elemental iron) tablet Take 1 tablet (325 mg total) by mouth. 1 Active folic acid (FOLVITE) 1 mg tablet Take 1 tablet (1,000 mcg total) by mouth daily. 1 Active hydroxychloroqu ine (PLAQUENIL) 200 mg tablet Take 2 tablets (400 mg total) by mouth 1 (one) time each day. 5 Active losartan (COZAAR) 50 mg tablet Take 1 tablet (50 mg total) by mouth. 5 Active predniSONE (DELTASONE) 5 mg tablet PLEASE SEE ATTACHED FOR DETAILED DIRECTIONS Active Encounters Date Type Department Care Team Description 12/25/2024 8:38 AM EDT Hospital Encounter [facility] [address] [place] [address] ILD (interstitial lung disease) ([facility] V24, [facility] V28) 12/19/2024 11:30 AM EDT Office Visit Pulmonology - [place] [address] [phone] Hank Piper MD ILD (interstitial lung disease) ([facility] V24, [facility] V28) (Primary Dx); Rheumatoid arthritis, involving unspecified site, unspecified whether rheumatoid factor present ([facility] V24, [facility] V28) 12/09/2024 10:49 AM EDT - 12/09/2024 11:59 PM EDT Hospital Encounter [facility] Pulmonary [address] [place] [phone] Pulmonary fibrosis ([facility] V24, [facility] V28) Discharge Disposition: Home or Self Care 11/18/2024 Telephone Pulmonology - [place] [address] [phone] Hank Piper MD from Last 3 Months Surgical History Surgery Date Site/Laterality Comments CHOLECYSTECTOMY PROCEDURE: HISTORICAL CHOLECYSTECTOMY Medical History Medical History Date Comments Rheumatoid arthritis, adult ([facility] V24, [facility] V28) 07/24/2017 DX:Rheumatoid arthritis, liane lt ([facility]) Asthma 07/24/2017 DX:Asthma Chronic interstitial lung di sease ([facility] V24, [facility] V28) 07/24/2017 DX:Chronic interstitial ailyn g disease ([facility]) Chronic sinusitis 07/24/2017 DX:Chronic sin usitis [...] PM EDT Sexual Orientation Not on file Obstetrics History Last Filed Vital Signs Vital Sign Reading Time Taken Comments Blood Pressure 112/64 12/19/2024 11:59 AM EDT Pulse 75 12/19/2024 11:59 AM EDT Temperature 36.4 C (97.6 F) 12/19/2024 11:59 AM EDT Respiratory Rate 16 12/19/2024 11:59 AM EDT Oxygen Saturation 100% 12/19/2024 11:59 AM EDT Inhaled Oxygen Concentration - - Weight 80.9 kg (178 lb 6.4 oz) 12/19/2024 11:59 AM EDT Height 165.1 cm (5' 5 ) 12/19/2024 11:59 AM EDT Body Mass Index 29.69 12/19/2024 11:59 AM EDT Plan of Treatment Upcoming Encounters Date Type Department Care Team (Late st Contact Info) Description 06/19/2025 9:45 AM EDT Office Visit Pulmonology - [place] [address] [phone] Hank Piper MD 175 [facility] 200 [place] [address] Health Maintenance Due Date Last Done Comments Breast Cancer Screening 1975 Colorectal Cancer Screening: Colonoscopy 1975 Hepatitis B Vaccines (1 of 3 - 19+ 3-dose series) 01/10/1995 Cervical Cancer Screening: Pap Smear 01/10/1997 Cholesterol Screening (Lipid Panel) 02/18/2022 HIV Screening 02/18/2022 Social Influencers of Health Screening 02/18/2022 Depression Screening 03/12/2024 COVID-19 Vaccine ( season) 2024 04/09/2022, 04/22/2021, 07/02/2020, Additional history exists Influenza Vaccine (#1) 2024 4, 12/15/2022, 12/14/2021, Additional history exists Hypertension/CHF/CAD Annual BMP Blood Test 08/06/2025 08/06/2024, 04/14/2024, 01/18/2024, Additional history exists DTaP,Tdap,and Td Vaccines (2 - Td or Tdap) 05/09/2029 05/09/2019 RSV Immunization Adult Patients (1 - 1-dose 75+ series) 01/10/2051 Pneumococcal Vaccine: Pediatrics (0 to 5 Years) and At-Risk Patients (6 to 49 Years) Completed 07/02/2023, 03/12/2009 Hepatitis C Screening Completed 08/06/2024 HIB Vaccines Aged Out No longer eligi [...] 20 months Aged Out No longer eligible based on patient's age to complete this topic Varicella Vaccines Aged Out No longer eligible based on patient's age to complete this topic Procedures Procedure Name Priority Date/Time Associated Diagnosis Comments HC SPIROMETRY BRONCHODILATION RESPONSIVENESS PRE/POST BRONCHODILATOR ADMINISTRATION Routine 12/09/2024 11:39 AM EDT Pulmonary fibrosis ([facility] V24, [facility] V28) from Last 3 Months Results * Pulmonary function testing: Spirometry with Bronchodilator, Carbon Monoxide Diffusing Capacity, Vital Capacity Test, Nitrogen Wash Out (12/09/2024 11:39 AM EDT) Narrative Hank Piper MD - 12/11/2024 8:10 PM EDT Table formatting from the original result was not included. Images from the original result were not included. [facility] Pulmonary Lab [address] [place] [address] Pulmonary Functions Report Date of service: 12/09/24 Patient Name: Samantha Mcgrath Date of : 1975 Age: 49 y.o. Gender: female Ordering Provider: Hank Piper MD Diagnosis listed on Order: Pulmonary fibrosis ([facility] V24, [facility] V28) Reason for Exam: Order Questions Answers Reason for Exam: fibrosis Which PFTs would you like to perform? Spirometry with Bronchodilator,Carbon Monoxide Diffusing Capacity,Vital Capacity Test,Nitrogen Wash Out SPIROMETRY: FEV1 is 70 % predicted and an FVC is 68 % predicted. The FEV1/FVC ratio is 103% of normal, no response to bronchodilators noted. LUNG VOLUMES: Total lung capacity (TLC): 57% predicted. Residual volume (RV): 52% predicted RV/TLC ratio is 92% of normal DIFFUSION CAPACITY: DLCO 76% predicted. DlCO/VA 120% of predicted COMPARISONS: INTERPRETATION: This pulmonary function test shows restrictive changes with a normal DLCO/VA ratio. When compared to the last test from March 2023, the total lung capacity has decreased Hank Piper MD PFT ORDERABLES Final Result from Last 3 Months Insurance [facility] MEDICAID ADVANTAGE Care Teams Senior Caregiver Relationship Specialty Start Date End Date Daniela, Mary Jane S, MD [address] [place] [address] PCP - General Internal Medicine 05/28/12
--- OUTSIDE RECORDS SUMMARY | 2024-12-25 10:27 | XMS_ITS | Encounter Summary ---
Author Organization [facility] Address [address] [facility] [address] [place] [address] Phone Care Team Providers Care Debeaker Name Role Phone Mary Jane Suarez MD Primary Care Provider [phone] Reason for Visit * Reason Comments Medication Refill Encounter Details Date Type Department Care Team (Late st Contact Info) Description 12/01/2024 Refill [facility] Rheumatology [address] [place] [address] Maria Victoria Desir MD [address] [facility], [address] [place] [address] [email or web address] Medication Refill Social History Tobacco [...] factor documented in this encounter Care Teams Debeaker Relationship Specialty Start Date End Date Mary Jane Suarez MD [address] [place] [address] PCP - General Internal Medicine 12/04/22 documented as of this encounter Additional Source Comments The information contained in this document represents components of the legal health record. It is not the complete legal health record.[facility]
--- OUTSIDE RECORDS SUMMARY | 2024-12-25 10:27 | XMS_ITS | Clinical Summary ---
Author Organization [facility] Address [address] [place] [address] Phone Care Team Providers Care Creative Coordinator Name Role Phone Mary Jane Suarez MD Primary Care Provider [phone] Allergies Active Allergy Reactions Criticality Noted Date Comments Infliximab Medium 12/25/2022 Nausea and vomiting Medications losartan (COZAAR) 25 MG tabletIndicatio ns:hypertension Take 25 mg by mouth daily. Indications: high blood pressure Active albuterol-budes onide 90-80 mcg/actuation HFAAIndications :bronchospasm prevention with asthma,as needed Take 1 Bottle by nebulization daily. Indications: bronchospasm prevention with asthma, as needed Active ferrous sulfate 325 mg (65 mg [place] iron) tablet Take 1 tablet by mouth [...] sure to inform any new MD, PA, AIR DEFENSE SPECIALIST about treatment with Orencia particularly in emergency [...] yrs of age (p/w ILD); follows with air traffic controller center Dr. Piper through [facility] Medication hx: Methotrexate resulted in hair loss [...] I would coordinate care with her established air traffic controller center. Assessment & Plan (04/14/2024 12:18 PM EST): [...] infusion was sometime in mid December adequately [place] infusion. She has another infusion appointment coming up in the middle of February. She has stable interstitial lung disease with stable dyspnea on exertion and follows with Dr. Piper. Encounters Date Type Department Care Team Description 12/01/2024 Refill [facility] Rheumatology [address] [place] [address] [place] [address] Maria Victoria Desir MD Medication Refill from Last 3 Months Family History Medical [...] Additional history exists POTASSIUM LEVEL 08/06/2025 08/06/2024, 07/2024, 04/14/2024, Additional history exists SCREENING FOR [...] EDT) SODIUM 135 133 - 146 mmol/L [facility] POTASSIUM 3.6 3.3 - 5.1 mmol/L [facility] CHLORIDE 100 96 - 108 mmol/L [facility] CO2 26 21 - 35 mmol/L [facility] BUN 12 6 - 19 mg/dL [facility] CREATININE 0.60 0.5 - 1.5 mg/dL [facility] GLUCOSE 85 70 - 99 mg/dL [facility] ALBUMIN 4.3 3.9 - 4.8 g/dL [facility] TOTAL PROTEIN 7.8 6.5 - 8.0 g/dL [facility] CALCIUM 9.5 8.4 - 10.3 mg/dL [facility] ALKALINE PHOSPHATASE 75 39 - 117 U/L [facility] TOTAL BILIRUBIN 0.4 0.0 - 1.2 mg/dL [facility] AST 25 0 - 37 U/L [facility] ALT 10 0 - 40 U/L [facility] GLOBULIN 3.5 1 - 4.8 g/dL [facility] EGFR 111 >59 mL/min/1.7 3m2 [facility] Comment:Estimated glomerular filtration rate calculated using the CKD-EPI refit equation. ANION GAP 13 10 - 20 mmol/L [facility] Blood 08/06/2024 10:3 6 AM EDT 08/06/2024 10:50 AM EDT Franci Tejeda MD, MPH LAB BLOOD ORDERABLES Fin al Result [address] [address] * Hepatitis C antibody, qualitative (08/06/2024 10:36 AM EDT) HCV NON-REACTIV E NON-REACTI VE [facility] Blood 08/06/2024 10:3 6 AM EDT 08/06/2024 10:50 AM EDT Franci Tejeda MD, MPH LAB BLOOD ORDERABLES Fin al Result [address] [address] from Last 3 Months or Most Recently Relevant to Health Maintenance Insurance [facility] [employer] ACO [facility] ACO [facility] ACO [facility] ACO Care Teams Creative Coordinator Relationship Specialty Start Date End Date Mary Jane Suarez MD [address], [place] [address] PCP - General Internal Medicine 12/04/22 Additional Source Comments The information contained in this document represents components of the legal health record. It is not the complete legal health record.[facility]
--- OUTSIDE RECORDS SUMMARY | 2024-12-25 10:27 | XMS_ITS | Encounter Summary ---
Author Organization [facility] Address [address] [place] [address] Phone Care Team Providers Care Music Video Producer Name Role Phone Mary Jane Suarez MD Primary Care Provider +1- [phone] Encounter Details Date Type Department Care Team (Late st Contact Info) Description 04/19/2024 Procedure Pass [facility], Ct Scan - [facility] [address] [place] [address] Social History Tobacco Use Types Packs/Day Years [...] 04/19/2024 7:11 AM Valorie Dailey RN * [place] Suicide Severity Rating Scale (Screener/Recent Self-Report) Question [...] documented as of this encounter Care Teams Music Video Producer Relationship Specialty Start Date End Date Mary Jane Suarez MD [address], [place] [address] PCP - General Internal Medicine 12/04/22 documented as of this encounter Additional Source Comments The information contained in this document represents components of the legal health record. It is not the complete legal health record.[facility]
[2024-12-25 13:28] LABS: MANUAL DIFF FLAG NO
[2024-12-25 13:37] LABS: Hematocrit 38.1 % (37.0-47.0); Hemoglobin 12.0 g/dl (12.0-16.0); Imm Gran Abs Auto 0.02 X10*3/uL (0.00-0.03); Imm Gran Pct Auto 0.3 % (0.0-0.4); Lymphocytes Absolute Auto 1.8 X10*3/uL (1.2-4.9); Mean Corpuscular HGB Conc 31.5 g/dl (31.0-35.0); Mean Corpuscular Hemoglobin 25.9 pg (27.0-33.0); Mean Corpuscular Volume 82.1 fL (80.0-98.0); NRBC Abs Auto 0.000 X10*3/uL (0.0-0.012); NRBC Pct Auto 0.0 /100WBC (0.0-0.2); Platelet Count 351 X10*3/uL (160-400); Red Blood Count 4.64 X10*6/uL (4.20-5.50); White Blood Count 7.5 X10*3/uL (4.8-10.8)
[2024-12-25 13:59] LABS: Alanine Aminotransferase 15 U/L (0-31); Aspartate Amino Transferase 26 U/L (5-31); Estimated Glomerular Filt Rate > 60
== END 2024-12-25 09:15 | disposition home or self-care (01) ==
LOC: HO.HKASLDS 09:14
PROVIDERS: PCP Internal Medicine; Visit Provider Internal Medicine Rheumatology
DX: Z79.899 Other long term (current) drug therapy (principal)
CPT/HCPCS: 36415; 82565; 84450; 84460; 85025; 85652; 86140

== ENCOUNTER 2025-02-15 11:44 | Inpatient (IN) | payer OTHER, SELFPAY ==
--- NOTE | ~2025-02-15 | CT_ITS ---
CLINICAL HISTORY: jaundice, CT abdomen and pelvis with contrast Comparison: Abdominal ultrasound 02/15/2025 Findings: Suggestion of emphysematous changes in visualized lung bases. No focal liver lesions. Cholecystectomy. Mild prominence of central intrahepatic and common bile ducts. Mild periportal edema. Spleen, adrenal glands, pancreas, and kidneys are unremarkable. No free air or free fluid. Unremarkable urinary bladder. Uterus appears within normal limits. No free air or free fluid. Visualized vascular structures are unremarkable. Nondistended stomach. Normal caliber small bowel. No obstruction. Colon is unremarkable. No acute appendicitis. No pathologically enlarged lymph nodes. No acute osseous abnormality. No lytic or sclerotic osseous lesions. Impression: 1. Mild prominence of central intrahepatic and common bile ducts that may represent sequela of prior cholecystectomy. However, given the provided clinical history of obstructive physiology and jaundice, further evaluation with MRCP should be considered. 2. Mild periportal edema. 3. Additional findings as above. This document has been electronically signed by: Lucia Knapp MD on 02/15/2025 15:53:17
--- NOTE | ~2025-02-15 | XR_ITS ---
CLINICAL HISTORY: cp 2 view chest x-ray Comparison: None provided Findings: Elevation of right hemidiaphragm with subjacent basilar atelectasis right lung volume loss. Lungs are otherwise clear. No large pleural effusion. No pneumothorax. Normal heart size and central pulmonary vascularity. Acute soft tissue or osseous abnormality. Impression: 1. No acute cardiopulmonary abnormality identified. 2. Additional findings as above. This document has been electronically signed by: Lucia Knapp MD on 02/15/2025 12:57:11
--- NOTE | ~2025-02-15 | FL_ITS ---
EXAMINATION: FLUOROSCOPY GUIDANCE FOR NEEDLE PLACEMENT CLINICAL INFORMATION: ERCP COMPARISON: Previous ultrasound and abdominal and pelvic CT February 15, 2025 and MRCP February 16, 2025 TECHNIQUE: Intraoperative fluoroscopy guidance provided for ERCP. 13 submitted images. FINDINGS: There is mild extrahepatic biliary duct dilatation. Images demonstrate filling defects in the distal common bile duct probably representing stones. Subsequent images demonstrate a wire and inflated balloon in the common bile duct. Later images demonstrate decompression of the biliary system and passage of contrast into the small bowel. There are surgical clips from cholecystectomy. See procedure note for detailed findings. FLUOROSCOPY TIME: 4.1 minutes DOSE AREA PRODUCT: 20 Gy-cm2 FL/FL guidance in OR IMPRESSION: Fluoroscopy guidance for ERCP. Electronically signed by: Alejandra Hickman MD 02/17/2025 03:30 PM [facility]
--- NOTE | ~2025-02-15 | US_ITS ---
CLINICAL HISTORY: eval for cholecystitis, substernal pain, nausea, emesis US abdomen limited Comparison: None provided Findings: The visualized pancreas is normal. The aorta and inferior vena cava are normal caliber. The liver is normal in size and echotexture. There is no intrahepatic bile duct dilatation. The common duct is 11 mm in diameter. Cholecystectomy. The main portal vein is antegrade. IMPRESSION: 1. Mild prominence of common bile duct could represent sequela of prior cholecystectomy. If patient continues to have persistent or worsening symptoms, consider MRCP for further evaluation. 2. Additional findings as above. This document has been electronically signed by: Lucia Knapp MD on 02/15/2025 14:55:57
--- NOTE | ~2025-02-15 | MR_ITS ---
EXAMINATION: MRCP HISTORY: cholangitis, transaminitis COMPARISON: Correlation is made with abdominal CT and ultrasound examinations dated 02/15/2025. TECHNIQUE: Axial gradient echo in and out of phase T1, axial T2 and fat suppressed T2, and coronal haste T2 with fat saturation images were obtained through the abdomen. 3D MRCP Reconstructed images and thick slab imaging of the biliary tree were obtained. FINDINGS: There is no significant signal loss within the liver on opposed phase imaging to suggest steatosis. There is mild dilatation of intrahepatic biliary radicles. The patient is status post cholecystectomy. The common bile duct is mildly dilated measuring up to 10 mm in diameter. There are 3 hypointense calculi measuring up to 4 mm within the common bile duct; one at the ampulla and two in the distal common bile duct. The spleen, pancreas, adrenals, and kidneys have an unremarkable unenhanced appearance. No retroperitoneal lymphadenopathy or ascites is identified in the upper abdomen. The visualized bones demonstrate normal marrow signal intensity. MR/MR MRCP IMPRESSION: Status post cholecystectomy. Choledocholithiasis as described. Electronically signed by: Obed Sun MD 02/16/2025 09:33 AM EST
--- NOTE | 2025-02-15 11:45 | ECG_ITS ---
Test Reason : CHEST PAIN Blood Pressure : */* mmHG Vent. Rate : 69 BPM Atrial Rate : 69 BPM P-R Int : 164 ms QRS Dur : 86 ms QT Int : 388 ms P-R-T Axes : 60 -10 55 degrees QTcB Int : 415 ms Sinus rhythm with occasional Premature ventricular complexes Otherwise normal ECG No previous ECGs available Referred By: Sondra Stoll Electronically Signed By: THEA HUNTER MD
[2025-02-15 12:02] VITALS: BP 136/74; PULSE 75; RESP 16; TEMP 36.6; O2SAT 96; BMI 28.3
--- NOTE | 2025-02-15 12:02 | ED_ITS ---
HPI - Chest Pain General Chief Complaint: Abdominal Pain Stated Complaint: Cp and back pain Time Seen by Provider: 02/15/25 13:25 Source: patient Mode of arrival: ambulatory Limitations: no limitations History of Present Illness ED Provider: HPI narrative: 50-year-old woman with a history of rheumatoid arthritis taking hydroxychloroquine, steroids, Sulfasalazine, has a history of GERD present epigastric abdominal pain radiating to the back, some improvement with Tums, also reporting that she has fasting and possibly had decreased p.o. intake, urine has been very dark. History of cholecystectomy she is taking these rheumatoid arthritis medications since November with a new provider Dr. Griffith. She also take steroids. Related Data Home Medications ?Medication ?Instructions ?Recorded ?Confirmed albuterol sulfate 2.5 mg/3 mL 2.5 mg inhalation Q4H ND N wheezing 11/11/24 02/15/25 (0.083 %) solution for nebulization esomeprazole magnesium 40 mg 40 mg PO DAILY PRN indige stion 11/11/24 02/15/25 capsule,delayed release ferrous sulfate 325 mg (65 mg 325 mg PO DAILY 11/11/24 02/15/25 iron) tablet losartan 50 mg tablet 50 mg PO DAILY 11/11/2410/03 cetirizine 10 mg tablet 10 mg PO DAILY 02/15/2510/03 prednisone 5 mg tablet 5 mg PO DAILY 02/15/2502/15 Previous Rx's ?Medication ?Instructions ?Recorded hydroxychloroquine 200 mg tablet 400 mg (2 x 200 mg) P O DAILY #60 12/04/24 (Plaquenil) tabs sulfasalazine 500 mg 1 g (2 x 500 mg) PO BID 90 d ays 12/30/24 tablet,delayed release #360 tabs Allergies Allergy/AdvReac Type Severity Reaction Status Date / Time Ramicade Allergy Unknown stomach Uncoded 02/15/25 12:05 upset Review of Systems 2 Constitutional: Constitutional: Reports as per [facility] Past Medical History Medical History (Updated 02/17/25 @ 11:33 by Concha Peguero RN) Allergies GERD (gastroesophageal reflux disease) HTN (hypertension) Rheumatoid arthritis Osteoarthritis Migraines Interstitial lung disease Fibromyalgia Surgical History (Updated 02/15/25 @ 17:43 by Nidhi Ritesh, MULTI SITE LEASING CONSULTANT) History of lung biopsy History of cholecystectomy Hx of tonsillectomy Previous section Social History Social History Household Members: Family Housing: House Do you presently have visiting nurse or other home services: No Patient Tobacco Use Status: Former Tobacco user e-Cigarette/Vaping Use: Never Used Second Hand Smoke Exposure: No service: No Physical Exam 2 Exam: Exam: General: looks age appropriate PERRLA, EOMI, MMM, no scleral icterus Neck: Supple, no LAD CV: RRR, no obvious murmurs appreciated Resp: ?No wheezing rales rhonchi no stridor moving air well Abd: ?Bowel sounds are present, epigastric tenderness, negative Otto's sign MSK: FROM, strength 5/5 all extremities, no lower extremity edema Skin: Warm, dry, intact, no jaundice Neuro: ?Alert and oriented x3, moving upper and lower extremities symmetrically, no obvious facial asymmetry noted, cranial nerves 2-12 intact Vital Signs: Vital Signs: Last Vital Signs Temp 96.9 F 02/18/25 11:45 Pulse 87 02/18/25 11:45 Resp 18 02/18/25 11:45 BP 132/84 02/18/25 11:45 Pulse Ox 98 02/18/25 11:45 O2 Del Method Room Air 02/18/25 11:45 BMI result Body Mass Index 28.3 Course Course Course Narrative: This is a Rapid Medical Exam performed in triage by Sondra Stoll PA-C. Full HPI, ROS and PE to be performed by primary ED provider. 50 yo F w/pmhx RA presenting to the ED c/o substernal chest pain since last night w/radiation to back - w/assoc nausea and emesis (3x yesterday). pain unchanged w/eating PE: NAD, nontoxic appearing, ambulating w/steady gait, abdomen is soft with epigastric tenderness Plan: EKG, kabs, UA, CXR Medications Administered Discontinued Medications Generic Name Dose Route Start Last Admin Trade Name Freq PRN Reason Stop Dose Admin Acetaminophen 650 mg 02/15/25 17:10 02/17/25 21:28 Acetaminophen 325 Mg Tablet PO 650 mg Q6H PRN Administration Pain, Mild 1-3,fever,headache Al Hydroxide/Mg Hydroxide 15 ml 02/15/25 14:06 02/15/25 14:25 Magnesium Hydrox/Alum Hydrox 30 Ml Oral.Susp PO 02/15/25 14:07 15 ml ONCE ONE Administration Calcium Carbonate 750 mg 02/15/25 17:10 02/18/25 11:41 Calcium Carbonate 750 Mg Tab.Chew PO 750 mg Q4H PRN Administration Heartburn Heparin Sodium (Porcine) 5,000 unit 02/15/25 18:00 02/15/25 17:34 Heparin Sodium,Porcine 5,000 Unit/Ml Vial SUBCUT 5,000 unit Q12H FELICIA Administration Hydroxychloroquine Sulfate 400 mg 02/16/25 09:00 02/18/25 09:20 Hydroxychloroquine Sulfate 200 Mg Tablet PO 400 mg DAILY FELICIA Administration Sodium Chloride 1,000 mls @ 999 mls/hr 02/15/25 14:15 02/15/25 15:32 Ns IV 02/15/25 15:15 Infused .Q1H1M FELICIA Infusion Piperacillin Sod/Tazobactam 100 mls @ 200 mls/hr 02/15/25 16:33 02/15/25 17:28 Sod 4.5 gm/ Sodium Chloride IV 02/15/25 17:02 Infused ONCE ONE Infusion Dextrose/Sodium Chloride 1,000 mls @ 100 mls/hr 02/15/25 17:15 02/16/25 13:46 D5ns IVCONT Infused .Q10H FELICIA Infusion Ceftriaxone Sodium 1 gm/ 50 mls @ 100 mls/hr 02/15/25 18:00 02/17/25 17:53 Sodium Chloride IV Infused Q24H FELICIA Infusion Metronidazole 500 mg in 100 mls @ 100 mls/hr 02/16/25 14:00 02/18/25 07:04 Flagyl IV Infused Q8H FELICIA Infusion Lactated Ringer's 1,000 mls @ 50 mls/hr 02/17/25 12:00 02/18/25 09:23 Lr IVCONT Not Given .Q20H FELICIA Indomethacin 100 mg 02/17/25 09:00 02/17/25 11:36 Indomethacin 50 Mg Supp.Rect ND 02/17/25 09:01 Not Given PREOP ONE Indomethacin 100 mg 02/17/25 11:45 02/17/25 15:22 Indomethacin 50 Mg Supp.Rect ND 02/17/25 11:46 Not Given PREOP ONE Iohexol 100 ml 02/15/25 15:00 02/15/25 15:01 Iohexol 350 Mg/Ml 100 Ml Infus..Btl IV 02/15/25 15:01 85 ml ONCE ONE Administration Ketorolac Tromethamine 15 mg 02/15/25 14:06 02/15/25 14:26 Ketorolac Tromethamine 15 Mg/Ml Vial IVPUSH 02/15/25 14:07 15 mg ONCE ONE Administration Lidocaine HCl 15 ml 02/15/25 14:06 02/15/25 14:26 Lidocaine Hcl Viscous 2 % 15 Ml Solution PO 02/15/25 14:07 15 ml ONCE ONE Administration Loratadine 10 mg 02/16/25 09:00 02/18/25 09:20 Loratadine 10 Mg Tablet PO 10 mg DAILY FELICIA Administration Losartan Potassium 50 mg 02/16/25 09:00 02/18/25 09:20 Losartan Potassium 50 Mg Tablet PO 50 mg DAILY FELICIA Administration Protocol Morphine Sulfate 2 mg 02/15/25 17:13 02/16/25 18:18 Morphine Sulfate 4 Mg/Ml Cartridge IVPUSH 2 mg Q4H PRN Administration Pain, Severe (Pain Scale 7-10) Protocol Ondansetron HCl 4 mg 02/15/25 14:06 02/15/25 14:26 Ondansetron Hcl 4 Mg/2 Ml Vial IVPUSH 02/15/25 14:07 4 mg ONCE ONE Administration Ondansetron HCl 4 mg 02/15/25 17:10 02/16/25 20:50 Ondansetron Hcl 4 Mg/2 Ml Vial IVPUSH 4 mg Q8H PRN Administration Nausea and Vomiting Prednisone 5 mg 02/16/25 09:00 02/18/25 09:20 Prednisone 5 Mg Tablet PO 5 mg DAILY FELICIA Administration Sodium Chloride 3 ml 02/16/25 00:00 02/18/25 09:22 0.9 % Sodium Chloride Flush 3 Ml Syringe IVFLUSH 3 ml QSHIFT FELICIA Administration Sulfasalazine 1,000 mg 02/15/25 21:45 02/18/25 09:20 Sulfasalazine 500 Mg Tablet PO 1,000 mg BID FELICIA Administration Medical Decision Making Medical Decision Making MDM Narrative: 2:21 PM 02/15/2025 (Dr. Feliz Monsivais): presenting with dark urine epigastric abdominal pain, elevated LFTs, direct bilirubin 2.5 with LFTs elevated alk phos eleated, does not appear to be related to ETOH, does not really overuse acetaminophen I we will check those labs however, we will check hepatitis panel, she is on hydroxychloroquine and sulfasalazine and steroids, sulfasalazine can cause transaminitis according to my literature search and she has been on this medication since November, she does have history of cholecystectomy. will obtain further imaging. 3:59 PM 02/15/2025 (Dr. Feliz Monsivais): CT and ultrasound stating may need MRCP, we will order we will sign our care 16:35. Patient's case discussed with GI. Aware of the LFT and the CT finding. Will admit for further evaluation. Hospitalist team consulted. patient to be admitted for further evaluation. Significant elevation in LFT question secondary to hydroxychloroquine and sulfasalazine. Question secondary to obstruction. Baseline antibiotics started After discussion with GI for possible cholangitis. Patient's white count is normal. Lactate is pending. Differential Diagnosis Differential Diagnoses: The differential diagnosis associated with the presentation includes ( Cholecystitis, pancreatitis, hepatitis, gastritis, cholangitis, choledocholithiasis, Pancreatic masses, medication reaction) Admission/Observation Consideration of admission/observation: Escalation of care including admission/observation considered Lab Data MDM Lab Attestation statement: I reviewed the patient's lab results. 02/18/25 05:56 02/18/25 05:56 Labs: Lab Results 02/15/25 02/15/25 02/15/25 Range/Units 12:26 13:58 14:20 WBC 5.9 (4.8-10.8) X10*3/uL RBC 4.83 (4.20-5.50) X10*6/uL Hgb 12.3 (12.0-16.0) g/dl Hct 38.7 (37.0-47.0) % MCV 80.1 (80.0-98.0) fL MCH 25.5 L (27.0-33.0) pg MCHC 31.8 (31.0-35.0) g/dl RDW 15.9 (11.0-16.0) % Plt Count 302 (160-400) X10*3/uL MPV 9.0 L (9.4-12.3) fL Immature Gran % (Auto) 0.3 (0.0-0.4) % Neut % (Auto) 64.1 (45-73) % Lymph % (Auto) 21.3 (20-40) % Nicholas % (Auto) 10.8 (2-11) % Eos % (Auto) 2.5 (0-4) % Baso % (Auto) 1.0 (0-2) % Lymph # (Auto) 1.3 (1.2-4.9) X10*3/uL Nicholas # (Auto) 0.6 (0.1-1.2) X10*3/uL Eos # (Auto) 0.2 (0.0-0.4) X10*3/uL Baso # (Auto) 0.1 (0.0-0.2) X10*3/uL Abs Immat Gran (auto) 0.02 (0.00-0.03) X10*3/uL Absolute Neuts (auto) 3.8 (2.0-8.3) x10*3/uL Absolute Nucleated RBC 0.000 (0.0-0.012) X10*3/uL Nucleated RBC % (auto) 0.0 (0.0-0.2) /100WBC PT 12.6 (11.2-13.5) SEC INR 1.0 (0.9-1.1) Sodium 141 (135-145) mmol/L Potassium 3.9 (3.3-5.1) mmol/L Chloride 108 (96-108) mmol/L Carbon Dioxide 24 (22-29) mmol/L Anion Gap 13 (12-20) BUN 6 L (9-16) mg/dL Creatinine 0.65 (0.5-1.4) mg/dL Estim Creat Clear Calc 107.4 Estimated GFR > 60 Random Glucose 104 (60-115) mg/dL Lactic Acid (0.5-2.0) mmol/L Calcium 9.9 (8.4-10.2) mg/dL Magnesium 1.9 (1.6-2.6) mg/dL Total Bilirubin 3.3 H (0.0-1.0) mg/dL Direct Bilirubin 2.5 H (0.0-0.5) mg/dL AST 539 H (5-31) U/L ALT 936 H (0-31) U/L Alkaline Phosphatase 356 H (39-117) U/L Ammonia 36 (13-55) umol/L Troponin I High Sens < 2.7 (<3.5-17.0) ng/L Total Protein 8.0 (6.5-8.0) g/dL Albumin 4.6 (3.5-5.0) g/dL Lipase 19 (8-78) U/L Urine Color Dark Yellow Urine Appearance Clear Urine pH 5.5 (5.0-9.0) Ur Specific [place] 1.020 (1.005-1.025) Urine Protein 30 (1+) H (Neg-Trace) mg/dL Urine Glucose (UA) Negative (Negative) mg/dL Urine Ketones Negative (Negative) mg/dL Urine Blood Negative (Negative) Urine Nitrite See Note (Negative) Ur Leukocyte Esterase Trace H (Negative) Urine RBC 0-2 (0-2) /HPF Urine WBC 0-5 (0-5) /HPF Ur Squamous Epith Cells 6-10 (0-2) /HPF Urine Bacteria Trace (None Seen) Hyaline Casts 0-2 (0-2) /LPF Urine Test NEGATIVE (NEGATIVE) Acetaminophen < 3 (<30) mcg/mL Hepatitis A IgM Ab Nonreactive (Nonreactive) Hep Bs Antigen Negative (Negative) Hep Bs Antibody NONREACTIVE (Nonreactive) Hep B Core Total Ab Nonreactive (Nonreactive) Hepatitis C Ab (EIA) Nonreactive (Nonreactive) 02/15/25 Range/Units 16:44 WBC (4.8-10.8) X10*3/uL RBC (4.20-5.50) X10*6/uL Hgb (12.0-16.0) g/dl Hct (37.0-47.0) % MCV (80.0-98.0) fL MCH (27.0-33.0) pg MCHC (31.0-35.0) g/dl RDW (11.0-16.0) % Plt Count (160-400) X10*3/uL MPV (9.4-12.3) fL Immature Gran % (Auto) (0.0-0.4) % Neut % (Auto) (45-73) % Lymph % (Auto) (20-40) % Nicholas % (Auto) (2-11) % Eos % (Auto) (0-4) % Baso % (Auto) (0-2) % Lymph # (Auto) (1.2-4.9) X10*3/uL Nicholas # (Auto) (0.1-1.2) X10*3/uL Eos # (Auto) (0.0-0.4) X10*3/uL Baso # (Auto) (0.0-0.2) X10*3/uL Abs Immat Gran (auto) (0.00-0.03) X10*3/uL Absolute Neuts (auto) (2.0-8.3) x10*3/uL Absolute Nucleated RBC (0.0-0.012) X10*3/uL Nucleated RBC % (auto) (0.0-0.2) /100WBC PT (11.2-13.5) SEC INR (0.9-1.1) Sodium (135-145) mmol/L Potassium (3.3-5.1) mmol/L Chloride (96-108) mmol/L Carbon Dioxide (22-29) mmol/L Anion Gap (12-20) BUN (9-16) mg/dL Creatinine (0.5-1.4) mg/dL Estim Creat Clear Calc Estimated GFR Random Glucose (60-115) mg/dL Lactic Acid 0.7 (0.5-2.0) mmol/L Calcium (8.4-10.2) mg/dL Magnesium (1.6-2.6) mg/dL Total Bilirubin (0.0-1.0) mg/dL Direct Bilirubin (0.0-0.5) mg/dL AST (5-31) U/L ALT (0-31) U/L Alkaline Phosphatase (39-117) U/L Ammonia (13-55) umol/L Troponin I High Sens (<3.5-17.0) ng/L Total Protein (6.5-8.0) g/dL Albumin (3.5-5.0) g/dL Lipase (8-78) U/L Urine Color Urine Appearance Urine pH (5.0-9.0) Ur Specific [place] (1.005-1.025) Urine Protein (Neg-Trace) mg/dL Urine Glucose (UA) (Negative) mg/dL Urine Ketones (Negative) mg/dL Urine Blood (Negative) Urine Nitrite (Negative) Ur Leukocyte Esterase (Negative) Urine RBC (0-2) /HPF Urine WBC (0-5) /HPF Ur Squamous Epith Cells (0-2) /HPF Urine Bacteria (None Seen) Hyaline Casts (0-2) /LPF Urine Test (NEGATIVE) Acetaminophen (<30) mcg/mL Hepatitis A IgM Ab (Nonreactive) Hep Bs Antigen (Negative) Hep Bs Antibody (Nonreactive) Hep B Core Total Ab (Nonreactive) Hepatitis C Ab (EIA) (Nonreactive) Independent Interpretation I performed an independent interpretation of an: EKG ( 69 beats per minute otherwise normal ECG without dysrhythmia, AV mj blocks or ST-T changes to suspect underlying ACS, my independent interpretation) Radiology Impression Discussion of test interpretation with radiology: I have reviewed the radiologist's reading. Discharge Plan Discharge Clinical Impression: Abdominal pain, epigastric, Elevated LFTs Patient Disposition: Admitted As Inpatient Interventions: Admission Worksheet (ED) Last Done: 02/15/25 18:45 Discharge Date/Time: 02/15/25 18:46
--- OUTSIDE RECORDS SUMMARY | 2025-02-15 12:12 | XMS_ITS | Encounter Summary ---
Author Organization [facility] Address [address] [place] [id number] Phone Care Team Providers Care Vocational Examiner Name Role Phone Mary Jane Suarez MD Primary Care Provider +1- [phone] Encounter Details Date Type Department Care Team (Late st Contact Info) Description 04/19/2024 Procedure Pass [facility], Ct Scan - [facility] [address] [place] [address] Social History Tobacco Use Types Packs/Day Years [...] 04/19/2024 7:11 AM Valorie Dailey RN * [place] Suicide Severity Rating Scale (Screener/Recent Self-Report) Question [...] documented as of this encounter Care Teams Vocational Examiner Relationship Specialty Start Date End Date Mary Jane Suarez MD [address] [address] PCP - General Internal Medicine 12/04/22 documented as of this encounter Additional Source Comments The information contained in this document represents components of the legal health record. It is not the complete legal health record.[facility]
--- OUTSIDE RECORDS SUMMARY | 2025-02-15 12:12 | XMS_ITS | Clinical Summary ---
Author Organization [facility] Address [address] [place] [address] Phone Care Team Providers Care Resistance Brazer Name Role Phone Mary Jane Suarez MD Primary Care Provider +1- [phone] Allergies Active Allergy Reactions Criticality Noted Date Comments Infliximab Medium 12/25/2022 Nausea and vomiting Medications losartan (COZAAR) 25 MG tabletIndicatio ns:hypertension Take 25 mg by mouth daily. Indications: high blood pressure Active albuterol-budes onide 90-80 mcg/actuation HFAAIndications :bronchospasm prevention with asthma,as needed Take 1 Bottle by nebulization daily. Indications: bronchospasm prevention with asthma, as needed Active ferrous sulfate 325 mg (65 mg elim ira iron) tablet Take 1 tablet by mouth [...] sure to inform any new MD, PA, RETREAD SUPERVISOR about treatment with [facility] particularly in emergency [...] yrs of age (p/w ILD); follows with needle control cheniller Dr. Piper through [facility] Medication hx: Methotrexate resulted in hair [...] I would coordinate care with her established needle control cheniller. Assessment & Plan (04/14/2024 12:18 PM EST): [...] infusion was sometime in mid December adequately [place] infusion. She has another infusion appointment coming up in the middle of February. She has stable interstitial lung disease with stable dyspnea on exertion and follows with Dr. Piper. Encounters Date Type Department Care Team Description 12/01/2024 Refill [facility] Rheumatology [address] [place] [address] [place] [address] Maria Victoria Desir MD Medication Refill from [...] Completed 07/02/2023 HEPATITIS C SCREENING Completed 08/06/2024 , 08/06/2024, 08/06/2024 HEPATITIS A VACCINES Aged Out No [...] High risk medication use COMPREHENSIVE METABOLIC PANEL (CMP) Routine 08/06/2024 10:36 AM EDT Rheumatoid arthritis involving multiple sites with positive rheumatoid factor High risk medication use from Last 3 Months or Most Recently Relevant to Health Maintenance Results * Comprehensive metabolic panel (08/06/2024 10:36 AM EDT) SODIUM 135 133 - 146 mmol/L [facility] POTASSIUM 3.6 3.3 - 5.1 mmol/L [facility] CHLORIDE 100 96 - 108 mmol/L [facility] CO2 26 21 - 35 mmol/L [facility] BUN 12 6 - 19 mg/dL [facility] CREATININE 0.60 0.5 - 1.5 mg/dL [facility] GLUCOSE 85 70 - 99 mg/dL [facility] ALBUMIN 4.3 3.9 - 4.8 g/dL [facility] TOTAL PROTEIN 7.8 6.5 - 8.0 g/dL [facility] CALCIUM 9.5 8.4 - 10.3 mg/dL [facility] ALKALINE PHOSPHATASE 75 39 - 117 U/L [facility] TOTAL BILIRUBIN 0.4 0.0 - 1.2 mg/dL [facility] AST 25 0 - 37 U/L [facility] ALT 10 0 - 40 U/L [facility] GLOBULIN 3.5 1 - 4.8 g/dL [facility] EGFR 111 >59 mL/min/1.7 3m2 [facility] Comment:Estimated glomerular filtration rate calculated using the CKD-EPI refit equation. ANION GAP 13 10 - 20 mmol/L [facility] Blood 08/06/2024 10:3 6 AM EDT 08/06/2024 10:50 AM EDT us Franci Tejeda MD, MPH LAB BLOOD BKR ORDERABLES Final Result [address] [id number] * Hepatitis C antibody, qualitative (08/06/2024 10:36 AM EDT) HCV NON-REACTIV E NON-REACTI VE [facility] Blood 08/06/2024 10:3 6 AM EDT 08/06/2024 10:50 AM EDT us Franci Tejeda MD, MPH LAB BLOOD BKR ORDERABLES Final Result [address] [address] from Last 3 Months or Most Recently Relevant to Health Maintenance Insurance [facility] [place] [address] [place] [address] ACO Care Teams Resistance Brazer Relationship Specialty Start Date End Date Mary Jane Suarez MD [address] [place] [address] PCP - General Internal Medicine 12/04/22 Additional Source Comments The information contained in this document represents components of the legal health record. It is not the complete legal health record.[facility]
--- OUTSIDE RECORDS SUMMARY | 2025-02-15 12:12 | XMS_ITS | Encounter Summary ---
Author Organization [facility] Address [address] [place] [address] Phone Care Team Providers Care Biofuels Processing Technician Name Role Phone Mary Jane Suarez MD Primary Care Provider +1- [phone] Reason for Visit * Reason Comments Medication Refill Encounter Details Date Type Department Care Team (Late st Contact Info) Description 12/01/2024 Refill [facility] Rheumatology [address] [place] [address] Maria Victoria Desir MD [address], [address] [place] [address] [email or web address] Medication Refill Social History Tobacco Use Types [...] factor documented in this encounter Care Teams Biofuels Processing Technician Relationship Specialty Start Date End Date Mary Jane Suarez MD [address] [place] [address] PCP - General Internal Medicine 12/04/22 documented as of this encounter Additional Source Comments The information contained in this document represents components of the legal health record. It is not the complete legal health record.[facility]
[2025-02-15 12:32] LABS: MANUAL DIFF FLAG NO
[2025-02-15 12:33] LABS: Hematocrit 38.7 % (37.0-47.0); Hemoglobin 12.3 g/dl (12.0-16.0); Imm Gran Abs Auto 0.02 X10*3/uL (0.00-0.03); Imm Gran Pct Auto 0.3 % (0.0-0.4); Lymphocytes Absolute Auto 1.3 X10*3/uL (1.2-4.9); Mean Corpuscular HGB Conc 31.8 g/dl (31.0-35.0); Mean Corpuscular Hemoglobin 25.5 pg (27.0-33.0); Mean Corpuscular Volume 80.1 fL (80.0-98.0); NRBC Abs Auto 0.000 X10*3/uL (0.0-0.012); NRBC Pct Auto 0.0 /100WBC (0.0-0.2); Platelet Count 302 X10*3/uL (160-400); Red Blood Count 4.83 X10*6/uL (4.20-5.50); White Blood Count 5.9 X10*3/uL (4.8-10.8)
[2025-02-15 13:00] LABS: Alanine Aminotransferase 936 U/L (0-31); Albumin Level 4.6 g/dL (3.5-5.0); Alkaline Phosphatase 356 U/L (39-117); Anion Gap 13 (12-20); Aspartate Amino Transferase 539 U/L (5-31); Blood Urea Nitrogen 6 mg/dL (9-16); Calcium 9.9 mg/dL (8.4-10.2); Carbon Dioxide 24 mmol/L (22-29); Chloride 108 mmol/L (96-108); Creatinine Clr Calc Pharmacy 107.4; Estimated Glomerular Filt Rate > 60; Lipase 19 U/L (8-78); Magnesium 1.9 mg/dL (1.6-2.6); Potassium 3.9 mmol/L (3.3-5.1); Sodium 141 mmol/L (135-145); Total Protein 8.0 g/dL (6.5-8.0)
[2025-02-15 13:01] LABS: Troponin-I High Sensitivity < 2.7 ng/L (<3.5-17.0)
[2025-02-15 13:26] VITALS: BP 143/80; PULSE 58; RESP 16; TEMP 36.6; O2SAT 98
[2025-02-15 14:05] LABS: Appearance Urine Clear; Glucose Urine UA Negative (Negative); PH 5.5 (5.0-9.0); Specific Gravity - Urine 1.020 (1.005-1.025); UMIC TRIGGER UACC YES
[2025-02-15 14:06] LABS: UPreg QC Valid YES
[2025-02-15] MEDS: Magnesium Hydrox/Alum Hydrox 30 ML ORAL.SUSP 15 ML PO (14:25)
[2025-02-15] MEDS: Lidocaine HCl Viscous 2 % 15 ML SOLUTION PO (14:26)
[2025-02-15 14:30] LABS: INTERNATIONAL NORM RATIO 1.0 (0.9-1.1); Prothrombin Time 12.6 SEC (11.2-13.5)
[2025-02-15 14:36] LABS: Ammonia 36 umol/L (13-55)
[2025-02-15 14:45] LABS: Acetaminophen LAB < 3 mcg/mL (<30)
[2025-02-15] MEDS: iohexoL 350 MG/ML 100 ML INFUS..BTL IV (15:01)
[2025-02-15 16:05] VITALS: BP 135/81; PULSE 63; RESP 18; TEMP 36.8; O2SAT 97
--- NOTE | 2025-02-15 17:15 | P.HPHOSP_ITS ---
History of Present Illness Date of Service: 02/15/25 Chief Complaint: epigastric pain 50-year-old woman with a history of rheumatoid arthritis, hypertension presented to the ER with complaints of gnawing, burning epigastric pain radiating to her back that started 2-3 days ago with some relief from Tums with 2-3 episodes of vomiting yesterday. She denied fever, chills, diarrhea, recent travel, sick contacts. She does have a history of cholecystectomy. In the ER, she was given a dose of Zosyn, Maalox, Zofran, Toradol, 1 L of IV fluid. Abdominal CT showing mild prominence of central intrahepatic and common bile ducts that may represent sequela of prior cholecystectomy however given clinical history of obstructive physiology and jaundice further evaluation as warranted., also noted mild periportal edema. No fever leukocytosis noted. Total bilirubin 3.3, direct bilirubin 2.5, AST 539, ALT 936, alk phos 356 She will be admitted for further management and treatment of acute hepatitis likely secondary to cholangitis. Review of Systems 2 Review of Systems: Denies any recent fever chills or decrease in appetite respiratory denies any shortness of breath or cough cardiovascular denied chest pain gastrointestinal See HPI genitourinary denies any dysuria frequency or hematuria musculoskeletal denies any joint pain or swelling neuropsych denies any weakness or seizures all other systems reviewed are negative [facility] Medical History (Updated 02/15/25 @ 17:16 by Nidhi Awad NP) Rheumatoid arthritis Osteoarthritis Migraines Interstitial lung disease Fibromyalgia Surgical History (Updated 02/15/25 @ 17:43 by Nidhi Awad NP) History of lung biopsy History of cholecystectomy Hx of tonsillectomy Previous section Social History Smoked in Last 30 Days: No Use of substances other than those prescribed or required for medical reasons: No Advance Directives: No Advance Directives Information Provided: Yes Do you have a plan to hurt others: No Plan Patient : No Meds Allergies Allergy/AdvReac Type Severity Reaction Status Date / Time Ramicade Allergy Unknown stomach Uncoded 02/15/25 12:05 upset Active Medications: Current Medications Acetaminophen (Acetaminophen 325 Mg Tablet) 650 mg PO Q6H PRN PRN Reason: Pain, Mild 1-3,fever,headache Calcium Carbonate (Calcium Carbonate 750 Mg Tab.Chew) 750 mg PO Q4H PRN PRN Reason: Heartburn Heparin Sodium (Porcine) (Heparin Sodium,Porcine 5,000 Unit/Ml Vial) 5,000 unit SUBCUT Q12H [facility] Dextrose/Sodium Chloride (D5ns) 1,000 mls @ 100 mls/hr IVCONT .Q10H [facility] Ceftriaxone Sodium 1 gm/ (Sodium Chloride) 50 mls @ 100 mls/hr IV Q24H [facility] Magnesium Hydroxide (Milk Of Magnesia 30 Ml Oral.Susp) 30 ml PO DAILY PRN PRN Reason: Constipation Melatonin (Melatonin 3 Mg Tablet) 6 mg PO BEDTIME PRN PRN Reason: Insomnia Morphine Sulfate (Morphine Sulfate 4 Mg/Ml Cartridge) 2 mg IVPUSH Q4H PRN; Protocol PRN Reason: Pain, Severe (Pain Scale 7-10) Ondansetron HCl (Ondansetron Hcl 4 Mg/2 Ml Vial) 4 mg IVPUSH Q8H PRN PRN Reason: Nausea and Vomiting Sodium Chloride (0.9 % Sodium Chloride Flush 3 Ml Syringe) 3 ml IVFLUSH QSHIFT [facility] Home Medications ?Medication ?Instructions ?Recorded ?Confirmed ?Last Taken ?Type albuterol sulfate 2.5 mg/3 mL mg inhalation Q4H PRN wh eezing 11/11/24 Unknown History (0.083 %) solution for nebulization esomeprazole magnesium 40 mg 40 mg PO DAILY PRN indige stion 11/11/24 Unknown History capsule,delayed release ferrous sulfate 325 mg (65 mg 325 mg PO DAILY 11/11/24 Unknown History iron) tablet losartan 50 mg tablet 50 mg PO DAILY 11/11/24 Unk nown History ciclopirox 8 % topical solution topical DAILY 02/15/25 Unknown History tofacitinib 5 mg tablet (Xeljanz) 5 mg PO BID 02/15/25 Unknown History Physical Exam 2 Vital Signs and Narrative: Vital Signs: Last Vital Signs Temp 98.3 F 02/15/25 16:05 Pulse 63 02/15/25 16:05 Resp 18 02/15/25 16:05 BP 135/81 02/15/25 16:05 Pulse Ox 97 02/15/25 16:05 O2 Del Method Room Air 02/15/25 16:05 BMI result Body Mass Index 28.3 Appearing in no acute distress head is normocephalic atraumatic eyes pupils are PERRLA sclera is anicteric mouth throat mucous membranes are intact and moist neck is supple no lymphadenopathy, no JVD noted lung sounds are clear to auscultation heart regular rate rhythm, clear S1, S2 positive bowel sounds, abdomen is soft, nontender neuro patient is alert x3, no focal deficits Results Labs 02/15/25 12:26 02/15/25 12: Labs: Laboratory Results - last 24 hr 02/15/25 02/15/25 02/15/25 12: 13:58 14:20 MCV 80.1 MCH 25.5 L MCHC 31.8 RDW 15.9 Plt Count 302 MPV 9.0 L Immature Gran % (Auto) 0.3 Neut % (Auto) 64.1 Lymph % (Auto) 21.3 [place] % (Auto) 10.8 Eos % (Auto) 2.5 Baso % (Auto) 1.0 Lymph # (Auto) 1.3 [place] # (Auto) 0.6 Eos # (Auto) 0.2 Baso # (Auto) 0.1 Abs Immat Gran (auto) 0.02 Absolute Neuts (auto) 3.8 Absolute Nucleated RBC 0.000 Nucleated RBC % (auto) 0.0 PT 12.6 INR 1.0 Anion Gap 13 Estim Creat Clear Calc 107.4 Estimated GFR > 60 Random Glucose 104 Lactic Acid Calcium 9.9 Magnesium 1.9 Total Bilirubin 3.3 H Direct Bilirubin 2.5 H AST 539 H ALT 936 H Alkaline Phosphatase 356 H Ammonia 36 Troponin I High Sens < 2.7 Total Protein 8.0 Albumin 4.6 Lipase 19 Urine Color Dark Yellow Urine Appearance Clear Urine pH 5.5 Ur Specific [place] 1.020 Urine Protein 30 (1+) H Urine Glucose (UA) Negative Urine Ketones Negative Urine Blood Negative Urine Nitrite See Note Ur Leukocyte Esterase Trace H Urine RBC 0-2 Urine WBC 0-5 Ur Squamous Epith Cells 6-10 Urine Bacteria Trace Hyaline Casts 0-2 Urine Test NEGATIVE Acetaminophen < 3 02/15/25 16:44 MCV MCH MCHC RDW Plt Count MPV Immature Gran % (Auto) Neut % (Auto) Lymph % (Auto) [place] % (Auto) Eos % (Auto) Baso % (Auto) Lymph # (Auto) [place] # (Auto) Eos # (Auto) Baso # (Auto) Abs Immat Gran (auto) Absolute Neuts (auto) Absolute Nucleated RBC Nucleated RBC % (auto) PT INR Anion Gap Estim Creat Clear Calc Estimated GFR Random Glucose Lactic Acid 0.7 Calcium Magnesium Total Bilirubin Direct Bilirubin AST ALT Alkaline Phosphatase Ammonia Troponin I High Sens Total Protein Albumin Lipase Urine Color Urine Appearance Urine pH Ur Specific [place] Urine Protein Urine Glucose (UA) Urine Ketones Urine Blood Urine Nitrite Ur Leukocyte Esterase Urine RBC Urine WBC Ur Squamous Epith Cells Urine Bacteria Hyaline Casts Urine Test Acetaminophen Assessment and Plan (1) Transaminitis: Status: Acute Plan 50 year old women admitted with acute hepatitis possibly secondary to cholangitis Acute hepatitis, possible cholangitis Abdominal CT showing prominence of central intrahepatic and common bile ducts, obstructive physiology should be considered, mild periportal edema GI consultation MRCP ordered Pain management IV fluid Continue empiric Rocephin Clear liquid diet for now, NPO after midnight Transaminitis Total bilirubin 3.3, AST 539, ALT 936, alk phos 356 Likely secondary to acute pathology, possibly cholangitis Follow liver function Hepatitis panel pending Hypertension Stable blood pressure Continue losartan History of rheumatoid arthritis On hydroxychloroquine, sulfasalazine and prednisone History of interstitial lung disease Continue albuterol as needed GERD PPI DVT prophylaxis with heparin Full code Medication reconciliation pending Quality Stroke Does the patient have a stroke diagnosis?: No VTE Prior VTE?: No VTE Risk Level:: Medical - moderate - high VTE Device Contraindication: Treatment Not Indicated VTE Drug Contraindication: N/A - Med Ordered
--- NOTE | 2025-02-15 17:18 | HO.NURTONUR ---
50 year old female presented to ED for concerns of epigastric pain, nausea, emesis and pain into back over past few days. Currently on meds for RA. Pt awake and alert, interactive appropriately. Ambulatory independent. Breathing equal and unlabored. Skin warm and well perfused. Plan for IV antibiotics and MRCP. MRI screening form completed and faxed. PIV to right AC. In stretcher.
--- NOTE | 2025-02-15 18:15 | PHA.MEDREC ---
Addendum entered by Colleen Bae RPh 02/15/25 18:49: REVIEWED BY PHARMACIST Addendum entered by Mino Stephen 02/15/25 18:43: Patient states they are on day 5 of 14 of one 5 mg tablet a day in prednisone taper. Original Note: Pharmacy Consult ? Medication Reconciliation Pharmacy has completed the medication reconciliation. Confirmed medication list with patient and against pharmacy claims.
[2025-02-15 18:45] VITALS: BP 135/84; PULSE 73; RESP 16; TEMP 36.3; O2SAT 96
[2025-02-15 19:20] VITALS: BMI 30.1
[2025-02-15 20:00] VITALS: RESP 18
--- NOTE | 2025-02-15 20:41 | PM.EVENT ---
Event Note Date of Service: 02/15/25 Event Note: GI Consult-Full note dictated-History from patient and EMR Imp: Probable choledochlithiasis based on her pain, abnormal labs, and imaging studies with a dilated CBD. She also reports that her pain is similar to her gallstones and gallbladder issues that prompted her CCY. No signs of cholangitis and her abdominal exam is currently benign. Rec: Agree with MRCP. If choledocholithiasis is confirmed I advised her that she would need an ERCP. Full consent has been obtained for this, including risks of bleeding, perforation, cholangitis, and pancreatitis. Continue antibiotics. If MRCP is negative and her LFT's improve I would then presume she passed a stone and would hold off on an ERCP. D/W patient in detail and she is comfortable with this plan. Thanks Time Spent With Patient Time: Total time managing care of this patient today ____ minutes.
--- NOTE | 2025-02-15 23:25 | CONS_ITS ---
DATE OF SERVICE: 02/15/2025 REASON FOR CONSULTATION: Abdominal pain, elevated LFTs, and abnormal imaging of the biliary tract. HISTORY OF PRESENT ILLNESS: Has been obtained from the patient and the chart. The patient is a 50-year-old female who is status post cholecystectomy some years ago for symptomatic gallstones. She does not think she had ERCP at that time. In any event, she was well after that surgery up until the past 2 to 3 days when she began having upper abdominal pain with some vomiting. She did not notice any jaundice, but did have some darkened urine today. She denies any definitive fevers or chills. She has not noticed any hematemesis, nor coffee-ground emesis. Her bowel movements have been fairly regular and without any signs of melena, nor hematochezia. She denies any pre-existing history of liver disease in herself or family members. She does not use any significant amounts of alcohol. In the ER, she was found to have elevated LFTs and imaging studies revealing evidence of some dilated intrahepatic and extrahepatic biliary ducts, but without any definitive choledocholithiasis. She has been admitted for further evaluation. She reports that currently her pain has decreased, although she did receive some pain medication in the ER. MEDICATIONS: At home include esomeprazole, Plaquenil, losartan, sulfasalazine, and possible prednisone 5 mg daily. Her present medications in the hospital include IV ceftriaxone, Plaquenil, Claritin, losartan, melatonin, omeprazole, Zofran, prednisone 5 mg daily, and sulfasalazine. PAST MEDICAL HISTORY: Interstitial lung disease, rheumatoid arthritis, cholecystectomy, lung biopsy. She denies any history of diabetes, heart disease, or stroke. She does have hypertension. SOCIAL HISTORY: She is . She denies tobacco, no alcohol. FAMILY HISTORY: Noncontributory. PHYSICAL EXAMINATION: GENERAL: The patient is a pleasant, alert, comfortable-appearing female. HEENT: Anicteric sclerae. NECK: Supple without lymphadenopathy. CHEST: Clear. CARDIAC: Normal S1, S2. ABDOMEN: Soft, nondistended. Some mild epigastric tenderness, but without mass, rebound, or guarding. LABORATORY DATA: Normal CBC, PT with INR, electrolytes, and renal function. Her LFTs are elevated with a total bilirubin of 3.3, direct bilirubin 2.5, AST 539, ALT 936, and alkaline phosphatase 356. Lipase was 19. Abdominal ultrasound describes a normal-appearing liver and the common duct of 11 mm. The intrahepatic ducts appeared normal. The portal vein was with normal flow and without obvious thrombus. CT scan describes some intrahepatic and extrahepatic biliary ductal dilatation. There is no obvious choledocholithiasis. The pancreas and spleen appeared normal. IMPRESSION: Given the patient's clinical history of abdominal pain, elevated liver function tests, and the dilated bile ducts, I advised her that this most likely represents choledocholithiasis. At the present time, she appears stable and without any obvious signs of cholangitis. I advised her that I think the next step would be that of MRCP to confirm choledocholithiasis. If that is positive for choledocholithiasis, I would then recommend ERCP for further treatment and evaluation. Full consent has been obtained from her for that, including risks of bleeding, perforation, cholangitis, and pancreatitis. In the event the MRCP is negative for stones, we could then presume she may have passed a stone as long as her pain and LFTs are improving. The patient was comfortable with this plan. Thank you for the consultation. MD ZACHERY Raza/ABDOUL / [phone]
[2025-02-16 03:13] VITALS: BP 119/70; PULSE 57; RESP 14; TEMP 36; O2SAT 100
[2025-02-16 06:24] LABS: Hematocrit 35.7 % (37.0-47.0); Hemoglobin 11.2 g/dl (12.0-16.0); Mean Corpuscular HGB Conc 31.4 g/dl (31.0-35.0); Mean Corpuscular Hemoglobin 25.5 pg (27.0-33.0); Mean Corpuscular Volume 81.1 fL (80.0-98.0); NRBC Abs Auto 0.000 X10*3/uL (0.0-0.012); NRBC Pct Auto 0.0 /100WBC (0.0-0.2); Platelet Count 264 X10*3/uL (160-400); Red Blood Count 4.40 X10*6/uL (4.20-5.50); White Blood Count 4.1 X10*3/uL (4.8-10.8)
[2025-02-16 06:49] LABS: Alanine Aminotransferase 614 U/L (0-31); Albumin Level 3.7 g/dL (3.5-5.0); Alkaline Phosphatase 274 U/L (39-117); Aspartate Amino Transferase 225 U/L (5-31); Magnesium 1.9 mg/dL (1.6-2.6); Total Protein 6.4 g/dL (6.5-8.0)
[2025-02-16 07:00] LABS: Anion Gap 14 (12-20); Blood Urea Nitrogen 4 mg/dL (9-16); Calcium 9.0 mg/dL (8.4-10.2); Carbon Dioxide 22 mmol/L (22-29); Chloride 111 mmol/L (96-108); Creatinine Clr Calc Pharmacy 138.4; Estimated Glomerular Filt Rate > 60; Potassium 3.6 mmol/L (3.3-5.1); Sodium 143 mmol/L (135-145)
[2025-02-16 07:46] VITALS: BP 134/75; PULSE 58; RESP 16; TEMP 36.1; O2SAT 97
[2025-02-16 08:35] LABS: HBS Num1 0.89 mIU/mL (0-7.99); HBc Num1 0.24 S/CO (0.00-0.79); HBsAGNum1 0.43 S/CO (0.00-0.99); Hepatitis A Antibody IgM 0.30 Index (0-0.79); Hepatitis B Surface Antigen Negative (Negative); ~HepC Num1 0.19 S/CO (0.00-0.79); ~Hepatitis A Antibody IgM Nonreactive (Nonreactive); ~Hepatitis B Surface Antibody NONREACTIVE (Nonreactive); ~Hepatitis C Antibody Nonreactive (Nonreactive)
[2025-02-16] MEDS: 0.9 % Sodium Chloride Flush 3 ML SYRINGE IVFLUSH ×3 (08:48→20:50)
[2025-02-16 08:49] VITALS: BP 136/78
--- NOTE | 2025-02-16 13:23 | MHC.CM.PN ---
PT REPORTS SHE LIVES WITH HER AND TWO GRANDCHILDREN (AGES 6+7) SHE HAS NO SERVICES OR DME DECLINES A HCP PCP: NETO SHEPPARD DCP: HOME VIA SELF TRANSPORT
--- NOTE | 2025-02-16 13:43 | HO.PM.IMPN ---
Subjective Subjective Date of Service: 02/16/25 Interval History: c/o deep abd pain but also hungry; found to have 3 CBD stones Review of Systems Review of Systems: Yes all other systems are reviewed and are negative Physical Exam Vital Signs: Vital Signs: Last Vital Signs Temp 97.0 F 02/16/25 07:46 Pulse 58 02/16/25 07:46 Resp 16 02/16/25 07:46 BP 136/78 02/16/25 08:49 Pulse Ox 97 02/16/25 07:46 O2 Del Method Room Air 02/16/25 07:46 BMI result Body Mass Index 30.1 Gen: in no acute distress HEENT: sclera anicteric, moist mucus membranes Neck: supple Lungs: clear to auscultation bilaterally Heart: regular rate and rhythm, no murmurs Abd: soft, epigastric tenderness without rebound, non-distended Ext: no edema Skin: warm/well-perfused Neuro: alert and oriented x3, no focal findings Psych: appropriate affect Objective Data Active Medications Acetaminophen (Acetaminophen 325 Mg Tablet) 650 mg PO Q6H PRN PRN Reason: Pain, Mild 1-3,fever,headache Last Admin: 02/16/25 08:50 Dose: 650 mg Documented By: SOFY Albuterol Sulfate (Albuterol Sulfate (0.083%) 2.5 Mg/3 Ml Vial.Neb) 2.5 mg INHALE Q4H PRN PRN Reason: Wheezing Calcium Carbonate (Calcium Carbonate 750 Mg Tab.Chew) 750 mg PO Q4H PRN PRN Reason: Heartburn Hydroxychloroquine Sulfate (Hydroxychloroquine Sulfate 200 Mg Tablet) 400 mg PO DAILY [facility] Last Admin: 02/16/25 08:49 Dose: 400 mg Documented By: SOFY Ceftriaxone Sodium 1 gm/ (Sodium Chloride) 50 mls @ 100 mls/hr IV Q24H [facility] Last Infusion: 02/15/25 18:23 Dose: Infused Documented By: MARITZA Loratadine (Loratadine 10 Mg Tablet) 10 mg PO DAILY [facility] Last Admin: 02/16/25 08:49 Dose: 10 mg Documented By: SOFY Losartan Potassium (Losartan Potassium 50 Mg Tablet) 50 mg PO DAILY [facility]; Protocol Last Admin: 02/16/25 08:49 Dose: 50 mg Documented By: SOFY Magnesium Hydroxide (Milk Of Magnesia 30 Ml Oral.Susp) 30 ml PO DAILY PRN PRN Reason: Constipation Melatonin (Melatonin 3 Mg Tablet) 6 mg PO BEDTIME PRN PRN Reason: Insomnia Morphine Sulfate (Morphine Sulfate 4 Mg/Ml Cartridge) 2 mg IVPUSH Q4H PRN; Protocol PRN Reason: Pain, Severe (Pain Scale 7-10) Last Admin: 02/16/25 09:55 Dose: 2 mg Documented By: SOFY Omeprazole (Omeprazole 20 Mg Capsule.Dr) 20 mg PO DAILY@0630 PRN PRN Reason: Indigestion Ondansetron HCl (Ondansetron Hcl 4 Mg/2 Ml Vial) 4 mg IVPUSH Q8H PRN PRN Reason: Nausea and Vomiting Prednisone (Prednisone 5 Mg Tablet) 5 mg PO DAILY [facility] Last Admin: 02/16/25 08:49 Dose: 5 mg Documented By: SOFY Sodium Chloride (0.9 % Sodium Chloride Flush 3 Ml Syringe) 3 ml IVFLUSH QSHIFT [facility] Last Admin: 02/16/25 08:48 Dose: 3 ml Documented By: SOFY Sulfasalazine (Sulfasalazine 500 Mg Tablet) 1,000 mg PO BID [facility] Last Admin: 02/16/25 08:49 Dose: 1,000 mg Documented By: SOFY Labs 02/16/25 05:41 02/16/25 05:40 Labs: Laboratory Results - last 24 hr 02/15/25 02/15/25 02/15/25 13:58 14:20 16:44 MCV MCH MCHC RDW Plt Count MPV Absolute Nucleated RBC Nucleated RBC % (auto) PT 12.6 INR 1.0 Anion Gap Estim Creat Clear Calc Estimated GFR Random Glucose Lactic Acid 0.7 Calcium Magnesium Total Bilirubin Direct Bilirubin AST ALT Alkaline Phosphatase Ammonia 36 Total Protein Albumin Urine Color Dark Yellow Urine Appearance Clear Urine pH 5.5 Ur Specific [place] 1.020 Urine Protein 30 (1+) H Urine Glucose (UA) Negative Urine Ketones Negative Urine Blood Negative Urine Nitrite See Note Ur Leukocyte Esterase Trace H Urine RBC 0-2 Urine WBC 0-5 Ur Squamous Epith Cells 6-10 Urine Bacteria Trace Hyaline Casts 0-2 Urine Test NEGATIVE Acetaminophen < 3 Hepatitis A IgM Ab Nonreactive Hep Bs Antigen Negative Hep Bs Antibody NONREACTIVE Hep B Core Total Ab Nonreactive Hepatitis C Ab (EIA) Nonreactive 02/16/25 02/16/25 02/16/25 05:40 05:40 05:40 MCV MCH MCHC RDW Plt Count MPV Absolute Nucleated RBC Nucleated RBC % (auto) PT INR Anion Gap Cancelled 14 Estim Creat Clear Calc Cancelled 138.4 Estimated GFR Cancelled Random Glucose Lactic Acid Calcium Magnesium Total Bilirubin Direct Bilirubin AST ALT Alkaline Phosphatase Ammonia Total Protein Albumin Urine Color Urine Appearance Urine pH Ur Specific [place] Urine Protein Urine Glucose (UA) Urine Ketones Urine Blood Urine Nitrite Ur Leukocyte Esterase Urine RBC Urine WBC Ur Squamous Epith Cells Urine Bacteria Hyaline Casts Urine Test Acetaminophen Hepatitis A IgM Ab Hep Bs Antigen Hep Bs Antibody Hep B Core Total Ab Hepatitis C Ab (EIA) 02/16/25 02/16/25 02/16/25 05:40 05:40 05:40 MCV MCH MCHC RDW Plt Count MPV Absolute Nucleated RBC Nucleated RBC % (auto) PT INR Anion Gap Estim Creat Clear Calc Estimated GFR > 60 Random Glucose Cancelled 107 Lactic Acid Calcium Cancelled 9.0 D Magnesium 1.9 Total Bilirubin 3.4 H Direct Bilirubin 2.5 H AST 225 H ALT 614 H Alkaline Phosphatase 274 H Ammonia Total Protein 6.4 L Albumin 3.7 Urine Color Urine Appearance Urine pH Ur Specific [place] Urine Protein Urine Glucose (UA) Urine Ketones Urine Blood Urine Nitrite Ur Leukocyte Esterase Urine RBC Urine WBC Ur Squamous Epith Cells Urine Bacteria Hyaline Casts Urine Test Acetaminophen Hepatitis A IgM Ab Hep Bs Antigen Hep Bs Antibody Hep B Core Total Ab Hepatitis C Ab (EIA) 02/16/25 05:41 MCV 81.1 MCH 25.5 L MCHC 31.4 RDW 16.0 Plt Count 264 MPV 9.2 L Absolute Nucleated RBC 0.000 Nucleated RBC % (auto) 0.0 PT INR Anion Gap Estim Creat Clear Calc Estimated GFR Random Glucose Lactic Acid Calcium Magnesium Total Bilirubin Direct Bilirubin AST ALT Alkaline Phosphatase Ammonia Total Protein Albumin Urine Color Urine Appearance Urine pH Ur Specific [place] Urine Protein Urine Glucose (UA) Urine Ketones Urine Blood Urine Nitrite Ur Leukocyte Esterase Urine RBC Urine WBC Ur Squamous Epith Cells Urine Bacteria Hyaline Casts Urine Test Acetaminophen Hepatitis A IgM Ab Hep Bs Antigen Hep Bs Antibody Hep B Core Total Ab Hepatitis C Ab (EIA) Impressions Cholangiopancreatography MRI 02/16/25 08:50 IMPRESSION: Status post cholecystectomy. Choledocholithiasis as described. Electronically signed by: Obed Sun MD 02/16/2025 09:33 AM EST Assessment and Plan (1) Choledocholithiasis: Status: Acute Plan d2, 50yo F with RA, HTN, ILD, hx cholecystectomy presenting with abd pain, found to have cholestasis/transaminitis due to choledocholithiasis choledocholithiasis - on ceftriaxone 02/15-, add metronidazole 02/16-; GI consulted, plan ERCP tomorrow for 3 CBD stones (1 at ampulla, 2 in distal CBD; dilated to 10mm)- should not need stress-dose HCT for EGD/ERCP HTN: losartan RA: Plaqueline, prednisone, sulfasalazine ILD: prn albuterol GERD: PPI VTE ppx: SCDs dispo: eventual home In my clinical judgment, the patient requires continued inpatient hospitalization for the following reasons: ERCP Total time managing care of this patient today: 35 minutes. Quality Stroke Does the patient have a stroke diagnosis?: No VTE Prior VTE?: No VTE Risk Level:: Medical - moderate - high VTE Device Contraindication: Treatment Not Indicated VTE Drug Contraindication: N/A - Med Ordered
[2025-02-16] MEDS: metroNIDAZOLE/NS 500 MG/100 ML PIGGYBACK 100 MG IV ×2 (14:20→22:20)
[2025-02-16 15:43] VITALS: BP 125/63; PULSE 73; RESP 18; TEMP 36.9; O2SAT 99
--- NOTE | 2025-02-16 19:25 | PM.EVENT ---
Event Note Date of Service: 02/16/25 Event Note: GI-Course noted--I advised her of the MRCP findings of the CBD stones and the need for an ERCP tomorrow with Dr. Ruiz. Reviewed the risks and benefits of the ERCP, as we did yesterday, and she remains agreeable. Thanks Time Spent With Patient Time: Total time managing care of this patient today ____ minutes.
--- NOTE | 2025-02-16 19:31 | MHC.SHP ---
Pre-Procedural Eval Section A - 24 Hr Update-Section A only Date of Service: 02/17/25 The patient is an INPATIENT: Yes The patient has been examined within 24 hours of the surgical procedure. The History & Physical has been completed within 30 days and I have reviewed it.: Yes Section B - Complete if H&P > 30 days Chief Complaint: possible cholangitis Allergies: Allergies Allergy/AdvReac Type Severity Reaction Status Date / Time Ramicade Allergy Unknown stomach Uncoded 02/15/25 12:05 upset Plan I have reviewed the history and physical and performed a pertinent physical examination on my patient. No changes have occurred unless specified. Time Spent With Patient Time: Total time managing care of this patient today ____ minutes.
[2025-02-16 20:00] VITALS: BP 141/83; PULSE 72; RESP 18; TEMP 36.4; O2SAT 99
[2025-02-17] VITALS (10 sets, daily range): BP systolic 106–139; BP diastolic 62–89; PULSE 50–77; RESP 12–18; TEMP 36.1–36.6; O2SAT 96–100
[2025-02-17] MEDS: metroNIDAZOLE/NS 500 MG/100 ML PIGGYBACK 100 MG IV ×3 (05:45→21:43)
[2025-02-17 06:33] LABS: MANUAL DIFF FLAG NO
[2025-02-17 06:38] LABS: Hematocrit 37.3 % (37.0-47.0); Hemoglobin 11.9 g/dl (12.0-16.0); Imm Gran Abs Auto 0.00 X10*3/uL (0.00-0.03); Imm Gran Pct Auto 0.0 % (0.0-0.4); Lymphocytes Absolute Auto 1.5 X10*3/uL (1.2-4.9); Mean Corpuscular HGB Conc 31.9 g/dl (31.0-35.0); Mean Corpuscular Hemoglobin 25.8 pg (27.0-33.0); Mean Corpuscular Volume 80.7 fL (80.0-98.0); NRBC Abs Auto 0.000 X10*3/uL (0.0-0.012); NRBC Pct Auto 0.0 /100WBC (0.0-0.2); Platelet Count 267 X10*3/uL (160-400); Red Blood Count 4.62 X10*6/uL (4.20-5.50); White Blood Count 4.2 X10*3/uL (4.8-10.8)
[2025-02-17 07:16] LABS: Alanine Aminotransferase 511 U/L (0-31); Albumin Level 3.8 g/dL (3.5-5.0); Alkaline Phosphatase 288 U/L (39-117); Anion Gap 13 (12-20); Aspartate Amino Transferase 164 U/L (5-31); Blood Urea Nitrogen 3 mg/dL (9-16); Calcium 9.6 mg/dL (8.4-10.2); Carbon Dioxide 23 mmol/L (22-29); Chloride 111 mmol/L (96-108); Creatinine Clr Calc Pharmacy 141.1; Estimated Glomerular Filt Rate > 60; Potassium 3.9 mmol/L (3.3-5.1); Sodium 143 mmol/L (135-145); Total Protein 6.8 g/dL (6.5-8.0)
[2025-02-17] MEDS: 0.9 % Sodium Chloride Flush 3 ML SYRINGE IVFLUSH (07:26)
[2025-02-17] MEDS: Lactated Ringers 1,000 ML 50 ML IVCONT ×2 (11:50→19:46)
--- NOTE | 2025-02-17 11:53 | P.PNIM_ITS ---
Subjective Subjective Date of Service: 02/17/25 Interval History: c/o deep boring epigastric pain, no N/V; NPO for ERCP Review of Systems Review of Systems: Yes all other systems are reviewed and are negative Physical Exam 2 Vital Signs: Vital Signs: Last Vital Signs Temp 97.5 F 02/17/25 11:34 Pulse 66 02/17/25 11:34 Resp 15 02/17/25 11:34 BP 125/72 02/17/25 11:34 Pulse Ox 99 02/17/25 11:34 O2 Del Method Room Air 02/17/25 11:34 BMI result Body Mass Index 30.1 Gen: in no acute distress HEENT: sclera anicteric, moist mucus membranes Neck: supple Lungs: clear to auscultation bilaterally Heart: regular rate and rhythm, no murmurs Abd: soft, epigastric tenderness without rebound, non-distended Ext: no edema Skin: warm/well-perfused Neuro: alert and oriented x3, no focal findings Psych: appropriate affect Objective Data Active Medications Acetaminophen (Acetaminophen 325 Mg Tablet) 650 mg PO Q6H PRN PRN Reason: Pain, Mild 1-3,fever,headache Last Admin: 02/17/25 07:25 Dose: 650 mg Documented By: HANK Albuterol Sulfate (Albuterol Sulfate (0.083%) 2.5 Mg/3 Ml Vial.Neb) 2.5 mg INHALE Q4H PRN PRN Reason: Wheezing Calcium Carbonate (Calcium Carbonate 750 Mg Tab.Chew) 750 mg PO Q4H PRN PRN Reason: Heartburn Last Admin: 02/16/25 18:17 Dose: 750 mg Documented By: SOFY Hydroxychloroquine Sulfate (Hydroxychloroquine Sulfate 200 Mg Tablet) 400 mg PO DAILY [facility] Last Admin: 02/17/25 07:25 Dose: 400 mg Documented By: HANK Ceftriaxone Sodium 1 gm/ (Sodium Chloride) 50 mls @ 100 mls/hr IV Q24H [facility] Last Infusion: 02/16/25 17:53 Dose: Infused Documented By: SOFY Metronidazole (Flagyl) 500 mg in 100 mls @ 100 mls/hr IV Q8H [facility] Last Infusion: 02/17/25 06:45 Dose: Infused Documented By: RAMON Lactated Ringer's (Lr) 1,000 mls @ 50 mls/hr IVCONT .Q20H [facility] Last Admin: 02/17/25 11:50 Dose: 50 mls/hr Documented By: RTEVON Loratadine (Loratadine 10 Mg Tablet) 10 mg PO DAILY [facility] Last Admin: 02/17/25 07:26 Dose: 10 mg Documented By: HANK Losartan Potassium (Losartan Potassium 50 Mg Tablet) 50 mg PO DAILY [facility]; Protocol Last Admin: 02/17/25 07:26 Dose: 50 mg Documented By: HANK Magnesium Hydroxide (Milk Of Magnesia 30 Ml Oral.Susp) 30 ml PO DAILY PRN PRN Reason: Constipation Melatonin (Melatonin 3 Mg Tablet) 6 mg PO BEDTIME PRN PRN Reason: Insomnia Morphine Sulfate (Morphine Sulfate 4 Mg/Ml Cartridge) 2 mg IVPUSH Q4H PRN; Protocol PRN Reason: Pain, Severe (Pain Scale 7-10) Last Admin: 02/16/25 18:18 Dose: 2 mg Documented By: SOFY Omeprazole (Omeprazole 20 Mg Capsule.Dr) 20 mg PO DAILY@0630 PRN PRN Reason: Indigestion Ondansetron HCl (Ondansetron Hcl 4 Mg/2 Ml Vial) 4 mg IVPUSH Q8H PRN PRN Reason: Nausea and Vomiting Last Admin: 02/16/25 20:50 Dose: 4 mg Documented By: RAMON Prednisone (Prednisone 5 Mg Tablet) 5 mg PO DAILY [facility] Last Admin: 02/17/25 07:26 Dose: 5 mg Documented By: HANK Sodium Chloride (0.9 % Sodium Chloride Flush 3 Ml Syringe) 3 ml IVFLUSH QSHIFT [facility] Last Admin: 02/17/25 07:26 Dose: 3 ml Documented By: HANK Sulfasalazine (Sulfasalazine 500 Mg Tablet) 1,000 mg PO BID [facility] Last Admin: 02/17/25 07:26 Dose: 1,000 mg Documented By: HANK Labs 02/17/25 05:35 02/17/25 05:35 Labs: Laboratory Results - last 24 hr 02/17/25 05:35 MCV 80.7 MCH 25.8 L MCHC 31.9 RDW 16.4 H Plt Count 267 MPV 9.4 Immature Gran % (Auto) 0.0 Neut % (Auto) 47.5 Lymph % (Auto) 36.1 [place] % (Auto) 11.6 H Eos % (Auto) 3.6 Baso % (Auto) 1.2 Lymph # (Auto) 1.5 [place] # (Auto) 0.5 Eos # (Auto) 0.2 Baso # (Auto) 0.1 Abs Immat Gran (auto) 0.00 Absolute Neuts (auto) 2.0 Absolute Nucleated RBC 0.000 Nucleated RBC % (auto) 0.0 Anion Gap 13 Estim Creat Clear Calc 141.1 Estimated GFR > 60 Random Glucose 83 Calcium 9.6 D Total Bilirubin 4.1 H Direct Bilirubin 2.9 H AST 164 H ALT 511 H Alkaline Phosphatase 288 H Total Protein 6.8 Albumin 3.8 Microbiology Microbiology Results: Microbiology 02/15/25 16:47 Blood Culture - Preliminary Blood - Venous No growth after 24 hours. 02/15/25 16:44 Blood Culture - Preliminary Blood - Venous No growth after 24 hours. Assessment and Plan (1) Choledocholithiasis: Status: Acute Plan d3, 50yo F with RA, HTN, ILD, hx cholecystectomy presenting with abd pain, found to have cholestasis/transaminitis due to choledocholithiasis choledocholithiasis - on ceftriaxone 02/15- and metronidazole 02/16-; GI consulted, plan ERCP today for 3 CBD stones (1 at ampulla, 2 in distal CBD; dilated to 10mm)- should not need stress-dose HCT for EGD/ERCP [pt on 5 mg/d of prednisone for RA] HTN: losartan RA: Plaqueline, prednisone, sulfasalazine ILD: prn albuterol GERD: PPI VTE ppx: SCDs dispo: eventual home In my clinical judgment, the patient requires continued inpatient hospitalization for the following reasons: ERCP Total time managing care of this patient today: 35 minutes. Quality Stroke Does the patient have a stroke diagnosis?: No VTE Prior VTE?: No VTE Risk Level:: Medical - moderate - high VTE Device Contraindication: Treatment Not Indicated VTE Drug Contraindication: N/A - Med Ordered
--- NOTE | 2025-02-17 12:19 | P.CONAN_ITS ---
Documented by User: Sondra Gonzalez NP 02/16/25 12:11 HPI - Anesthesia Eval Consult details Narrative: 50 yr old female for ERCP Here with acute hepatitis likely 2/2 cholangitis Rheumatoid arthritis: on prednisone 5 mg daily Asthma, ILD 2/2 RA: follows Rylee piper, last visit 12/19/24, reported using albuterol 1-2 times daily; PFTs done 11/2024 show slight decrease in all lung capacity but diffusion capacity is generally stable; chest xray done 12/25/24 showed nothing acute, stable interstitial changes. [facility] Active Problems Active Problems: All Active Problems (Updated 02/15/25 @ 17:16 by Nidhi Awad NP) Elevated LFTs (Acute) Abdominal pain, epigastric (Acute) Transaminitis (Acute) Other fdc (current) drug therapy (Acute) Diffuse interstitial rheumatoid disease of lung (Acute) Rheumatoid arthritis, seropositive (Acute) Past Medical History Medical History (Updated 02/17/25 @ 11:33 by Concha Peguero RN) Allergies GERD (gastroesophageal reflux disease) HTN (hypertension) Rheumatoid arthritis Osteoarthritis Migraines Interstitial lung disease Fibromyalgia Surgical History Surgical History (Updated 02/15/25 @ 17:43 by Nidhi Awad NP) History of lung biopsy History of cholecystectomy Hx of tonsillectomy Previous section Social History Social History Household Members: Family Housing: House Do you presently have visiting nurse or other home services: No Patient Tobacco Use Status: Former Tobacco user e-Cigarette/Vaping Use: Never Used Second Hand Smoke Exposure: No service: No Meds Allergies Allergy/AdvReac Type Severity Reaction Status Date / Time Ramicade Allergy Unknown stomach Uncoded 02/15/25 12:05 upset Active Medications: Current Medications Acetaminophen (Acetaminophen 325 Mg Tablet) 650 mg PO Q6H PRN PRN Reason: Pain, Mild 1-3,fever,headache Last Admin: 02/16/25 08:50 Dose: 650 mg Albuterol Sulfate (Albuterol Sulfate (0.083%) 2.5 Mg/3 Ml Vial.Neb) 2.5 mg INHALE Q4H PRN PRN Reason: Wheezing Calcium Carbonate (Calcium Carbonate 750 Mg Tab.Chew) 750 mg PO Q4H PRN PRN Reason: Heartburn Hydroxychloroquine Sulfate (Hydroxychloroquine Sulfate 200 Mg Tablet) 400 mg PO DAILY [facility] Last Admin: 02/16/25 08:49 Dose: 400 mg Dextrose/Sodium Chloride (D5ns) 1,000 mls @ 100 mls/hr IVCONT .Q10H [facility] Last Admin: 02/16/25 03:15 Dose: 100 mls/hr Ceftriaxone Sodium 1 gm/ (Sodium Chloride) 50 mls @ 100 mls/hr IV Q24H [facility] Last Infusion: 02/15/25 18:23 Dose: Infused Loratadine (Loratadine 10 Mg Tablet) 10 mg PO DAILY [facility] Last Admin: 02/16/25 08:49 Dose: 10 mg Losartan Potassium (Losartan Potassium 50 Mg Tablet) 50 mg PO DAILY [facility]; Protocol Last Admin: 02/16/25 08:49 Dose: 50 mg Magnesium Hydroxide (Milk Of Magnesia 30 Ml Oral.Susp) 30 ml PO DAILY PRN PRN Reason: Constipation Melatonin (Melatonin 3 Mg Tablet) 6 mg PO BEDTIME PRN PRN Reason: Insomnia Morphine Sulfate (Morphine Sulfate 4 Mg/Ml Cartridge) 2 mg IVPUSH Q4H PRN; Protocol PRN Reason: Pain, Severe (Pain Scale 7-10) Last Admin: 02/16/25 09:55 Dose: 2 mg Omeprazole (Omeprazole 20 Mg Capsule.Dr) 20 mg PO DAILY@0630 PRN PRN Reason: Indigestion Ondansetron HCl (Ondansetron Hcl 4 Mg/2 Ml Vial) 4 mg IVPUSH Q8H PRN PRN Reason: Nausea and Vomiting Prednisone (Prednisone 5 Mg Tablet) 5 mg PO DAILY [facility] Last Admin: 02/16/25 08:49 Dose: 5 mg Sodium Chloride (0.9 % Sodium Chloride Flush 3 Ml Syringe) 3 ml IVFLUSH QSHIFT [facility] Last Admin: 02/16/25 08:48 Dose: 3 ml Sulfasalazine (Sulfasalazine 500 Mg Tablet) 1,000 mg PO BID [facility] Last Admin: 02/16/25 08:49 Dose: 1,000 mg Home Medications ?Medication ?Instructions ?Recorded ?Confirmed ?Last Taken ?Type albuterol sulfate 2.5 mg/3 mL 2.5 mg inhalation Q4H WA N wheezing 11/11/24 02/15/25 02/15/25 History (0.083 %) solution for nebulization esomeprazole magnesium 40 mg 40 mg PO DAILY PRN indige stion 11/11/24 02/15/25 02/15/25 History capsule,delayed release ferrous sulfate 325 mg (65 mg 325 mg PO DAILY 11/11/24 02/15/25 02/15/25 History iron) tablet losartan 50 mg tablet 50 mg PO DAILY 11/11/2410/0302/15/25 History cetirizine 10 mg tablet 10 mg PO DAILY 02/15/2510/0302/15/25 History prednisone 5 mg tablet 5 mg PO DAILY 02/15/2502/1502/15/25 History Exam Height,Weight and Vital Signs: Height 5 ft 5 in Weight 82 kg Last Vital Signs Temp 97.0 F 02/16/25 07:46 Pulse 58 02/16/25 07:46 Resp 16 02/16/25 07:46 BP 136/78 02/16/25 08:49 Pulse Ox 97 02/16/25 07:46 O2 Del Method Room Air 02/16/25 07:46 Pertinent Lab Results Pertinent Lab Results: Laboratory Tests 02/15/25 02/15/25 02/15/25 12:26 13:58 14:20 WBC 5.9 RBC 4.83 Hgb 12.3 Hct 38.7 MCV 80.1 MCH 25.5 L MCHC 31.8 RDW 15.9 Plt Count 302 MPV 9.0 L Immature Gran % (Auto) 0.3 Neut % (Auto) 64.1 Lymph % (Auto) 21.3 [place] % (Auto) 10.8 Eos % (Auto) 2.5 Baso % (Auto) 1.0 Lymph # (Auto) 1.3 [place] # (Auto) 0.6 Eos # (Auto) 0.2 Baso # (Auto) 0.1 Abs Immat Gran (auto) 0.02 Absolute Neuts (auto) 3.8 Absolute Nucleated RBC 0.000 Nucleated RBC % (auto) 0.0 PT 12.6 INR 1.0 Sodium 141 Potassium 3.9 Chloride 108 Carbon Dioxide 24 Anion Gap 13 BUN 6 L Creatinine 0.65 Estim Creat Clear Calc 107.4 Estimated GFR > 60 Random Glucose 104 Lactic Acid Calcium 9.9 Magnesium 1.9 Total Bilirubin 3.3 H Direct Bilirubin 2.5 H AST 539 H ALT 936 H Alkaline Phosphatase 356 H Ammonia 36 Troponin I High Sens < 2.7 Total Protein 8.0 Albumin 4.6 Lipase 19 Urine Color Dark Yellow Urine Appearance Clear Urine pH 5.5 Ur Specific [place] 1.020 Urine Protein 30 (1+) H Urine Glucose (UA) Negative Urine Ketones Negative Urine Blood Negative Urine Nitrite See Note Ur Leukocyte Esterase Trace H Urine RBC 0-2 Urine WBC 0-5 Ur Squamous Epith Cells 6-10 Urine Bacteria Trace Hyaline Casts 0-2 Urine Test NEGATIVE Acetaminophen < 3 Hepatitis A IgM Ab Nonreactive Hep Bs Antigen Negative Hep Bs Antibody NONREACTIVE Hep B Core Total Ab Nonreactive Hepatitis C Ab (EIA) Nonreactive 02/15/25 02/16/25 02/16/25 16:44 05:40 05:40 WBC RBC Hgb Hct MCV MCH MCHC RDW Plt Count MPV Immature Gran % (Auto) Neut % (Auto) Lymph % (Auto) [place] % (Auto) Eos % (Auto) Baso % (Auto) Lymph # (Auto) [place] # (Auto) Eos # (Auto) Baso # (Auto) Abs Immat Gran (auto) Absolute Neuts (auto) Absolute Nucleated RBC Nucleated RBC % (auto) PT INR Sodium Cancelled 143 Potassium Cancelled Chloride Carbon Dioxide Anion Gap BUN Creatinine Estim Creat Clear Calc Estimated GFR Random Glucose Lactic Acid 0.7 Calcium Magnesium Total Bilirubin Direct Bilirubin AST ALT Alkaline Phosphatase Ammonia Troponin I High Sens Total Protein Albumin Lipase Urine Color Urine Appearance Urine pH Ur Specific [place] Urine Protein Urine Glucose (UA) Urine Ketones Urine Blood Urine Nitrite Ur Leukocyte Esterase Urine RBC Urine WBC Ur Squamous Epith Cells Urine Bacteria Hyaline Casts Urine Test Acetaminophen Hepatitis A IgM Ab Hep Bs Antigen Hep Bs Antibody Hep B Core Total Ab Hepatitis C Ab (EIA) 02/16/25 02/16/25 02/16/25 05:40 05:40 05:40 WBC RBC Hgb Hct MCV MCH MCHC RDW Plt Count MPV Immature Gran % (Auto) Neut % (Auto) Lymph % (Auto) [place] % (Auto) Eos % (Auto) Baso % (Auto) Lymph # (Auto) [place] # (Auto) Eos # (Auto) Baso # (Auto) Abs Immat Gran (auto) Absolute Neuts (auto) Absolute Nucleated RBC Nucleated RBC % (auto) PT INR Sodium Potassium 3.6 Chloride Cancelled 111 H Carbon Dioxide Cancelled 22 Anion Gap Cancelled BUN Creatinine Estim Creat Clear Calc Estimated GFR Random Glucose Lactic Acid Calcium Magnesium Total Bilirubin Direct Bilirubin AST ALT Alkaline Phosphatase Ammonia Troponin I High Sens Total Protein Albumin Lipase Urine Color Urine Appearance Urine pH Ur Specific [place] Urine Protein Urine Glucose (UA) Urine Ketones Urine Blood Urine Nitrite Ur Leukocyte Esterase Urine RBC Urine WBC Ur Squamous Epith Cells Urine Bacteria Hyaline Casts Urine Test Acetaminophen Hepatitis A IgM Ab Hep Bs Antigen Hep Bs Antibody Hep B Core Total Ab Hepatitis C Ab (EIA) 02/16/25 02/16/25 02/16/25 05:40 05:40 05:40 WBC RBC Hgb Hct MCV MCH MCHC RDW Plt Count MPV Immature Gran % (Auto) Neut % (Auto) Lymph % (Auto) [place] % (Auto) Eos % (Auto) Baso % (Auto) Lymph # (Auto) [place] # (Auto) Eos # (Auto) Baso # (Auto) Abs Immat Gran (auto) Absolute Neuts (auto) Absolute Nucleated RBC Nucleated RBC % (auto) PT INR Sodium Potassium Chloride Carbon Dioxide Anion Gap 14 BUN Cancelled 4 L Creatinine Cancelled 0.52 Estim Creat Clear Calc Cancelled Estimated GFR Random Glucose Lactic Acid Calcium Magnesium Total Bilirubin Direct Bilirubin AST ALT Alkaline Phosphatase Ammonia Troponin I High Sens Total Protein Albumin Lipase Urine Color Urine Appearance Urine pH Ur Specific [place] Urine Protein Urine Glucose (UA) Urine Ketones Urine Blood Urine Nitrite Ur Leukocyte Esterase Urine RBC Urine WBC Ur Squamous Epith Cells Urine Bacteria Hyaline Casts Urine Test Acetaminophen Hepatitis A IgM Ab Hep Bs Antigen Hep Bs Antibody Hep B Core Total Ab Hepatitis C Ab (EIA) 02/16/25 02/16/25 02/16/25 05:40 05:40 05:40 WBC RBC Hgb Hct MCV MCH MCHC RDW Plt Count MPV Immature Gran % (Auto) Neut % (Auto) Lymph % (Auto) [place] % (Auto) Eos % (Auto) Baso % (Auto) Lymph # (Auto) [place] # (Auto) Eos # (Auto) Baso # (Auto) Abs Immat Gran (auto) Absolute Neuts (auto) Absolute Nucleated RBC Nucleated RBC % (auto) PT INR Sodium Potassium Chloride Carbon Dioxide Anion Gap BUN Creatinine Estim Creat Clear Calc 138.4 Estimated GFR Cancelled > 60 Random Glucose Cancelled 107 Lactic Acid Calcium Cancelled Magnesium Total Bilirubin Direct Bilirubin AST ALT Alkaline Phosphatase Ammonia Troponin I High Sens Total Protein Albumin Lipase Urine Color Urine Appearance Urine pH Ur Specific [place] Urine Protein Urine Glucose (UA) Urine Ketones Urine Blood Urine Nitrite Ur Leukocyte Esterase Urine RBC Urine WBC Ur Squamous Epith Cells Urine Bacteria Hyaline Casts Urine Test Acetaminophen Hepatitis A IgM Ab Hep Bs Antigen Hep Bs Antibody Hep B Core Total Ab Hepatitis C Ab (EIA) 02/16/25 02/16/25 05:40 05:41 WBC 4.1 L RBC 4.40 Hgb 11.2 L Hct 35.7 L MCV 81.1 MCH 25.5 L MCHC 31.4 RDW 16.0 Plt Count 264 MPV 9.2 L Immature Gran % (Auto) Neut % (Auto) Lymph % (Auto) [place] % (Auto) Eos % (Auto) Baso % (Auto) Lymph # (Auto) [place] # (Auto) Eos # (Auto) Baso # (Auto) Abs Immat Gran (auto) Absolute Neuts (auto) Absolute Nucleated RBC 0.000 Nucleated RBC % (auto) 0.0 PT INR Sodium Potassium Chloride Carbon Dioxide Anion Gap BUN Creatinine Estim Creat Clear Calc Estimated GFR Random Glucose Lactic Acid Calcium 9.0 D Magnesium 1.9 Total Bilirubin 3.4 H Direct Bilirubin 2.5 H AST 225 H ALT 614 H Alkaline Phosphatase 274 H Ammonia Troponin I High Sens Total Protein 6.4 L Albumin 3.7 Lipase Urine Color Urine Appearance Urine pH Ur Specific [place] Urine Protein Urine Glucose (UA) Urine Ketones Urine Blood Urine Nitrite Ur Leukocyte Esterase Urine RBC Urine WBC Ur Squamous Epith Cells Urine Bacteria Hyaline Casts Urine Test Acetaminophen Hepatitis A IgM Ab Hep Bs Antigen Hep Bs Antibody Hep B Core Total Ab Hepatitis C Ab (EIA) Narrative Narrative: EKG 02/2025 Vent. Rate : 69 BPM Atrial Rate : 69 BPM P-R Int : 164 ms QRS Dur : 86 ms QT Int : 388 ms P-R-T Axes : 60 -10 55 degrees QTcB Int : 415 ms Sinus rhythm with occasional Premature ventricular complexes Otherwise normal ECG No previous ECGs available Documented by User: Concha Collins DO 02/17/25 12:21 [facility] Past Medical History Medical History (Updated 02/17/25 @ 11:33 by Concha Peguero RN) Allergies GERD (gastroesophageal reflux disease) HTN (hypertension) Rheumatoid arthritis Osteoarthritis Migraines Interstitial lung disease Fibromyalgia Family History Family history of problems with anesthesia: No Surgical History Surgical History (Updated 02/15/25 @ 17:43 by Nidhi Awad NP) History of lung biopsy History of cholecystectomy Hx of tonsillectomy Previous section History of Problems with Anesthesia: No Social History Social History Household Members: Family Housing: House Do you presently have visiting nurse or other home services: No Patient Tobacco Use Status: Former Tobacco user e-Cigarette/Vaping Use: Never Used Second Hand Smoke Exposure: No service: No Meds Allergies Allergy/AdvReac Type Severity Reaction Status Date / Time Ramicade Allergy Unknown stomach Uncoded 02/15/25 12:05 upset Home Medications ?Medication ?Instructions ?Recorded ?Confirmed ?Last Taken ?Type albuterol sulfate 2.5 mg/3 mL 2.5 mg inhalation Q4H WA N wheezing 11/11/24 02/15/25 02/15/25 History (0.083 %) solution for nebulization esomeprazole magnesium 40 mg 40 mg PO DAILY PRN indige stion 11/11/24 02/15/25 02/15/25 History capsule,delayed release ferrous sulfate 325 mg (65 mg 325 mg PO DAILY 11/11/24 02/15/25 02/15/25 History iron) tablet losartan 50 mg tablet 50 mg PO DAILY 11/11/2410/0302/15/25 History cetirizine 10 mg tablet 10 mg PO DAILY 02/15/2510/0302/15/25 History prednisone 5 mg tablet 5 mg PO DAILY 02/15/2502/1502/15/25 History Exam Exam Date and Time: 02/17/25 1219 Height,Weight and Vital Signs: Height 5 ft 5 in Weight 82 kg Last Vital Signs Temp 97.0 F 02/16/25 07:46 Pulse 58 02/16/25 07:46 Resp 16 02/16/25 07:46 BP 136/78 02/16/25 08:49 Pulse Ox 97 02/16/25 07:46 O2 Del Method Room Air 02/16/25 07:46 Vital Signs Temperature 98 F 02/15/25 12:02 Pulse Rate 75 02/15/25 12:02 Respiratory Rate 16 02/15/25 12:02 Blood Pressure 136/74 02/15/25 12:02 Pulse Oximetry 96 02/15/25 12:02 Oxygen Delivery Method Room Air 02/15/25 12:02 Temperature 97.5 F 02/17/25 11:34 Pulse Rate 66 02/17/25 11:34 Respiratory Rate 15 02/17/25 11:34 Blood Pressure 125/72 02/17/25 11:34 Pulse Oximetry 99 02/17/25 11:34 Oxygen Delivery Method Room Air 02/17/25 11:34 Airway Mallampati Class: II TM Dist: >3cm Neck ROM: Full Loose/Missing/Broken Teeth: No (patient denies any loose or broken teeth) Heart: S1S2 Lungs: Bilateral crackles Assessment and Plan Assessment Anesthesia Assessment: Anesthesia Plan Discussed and Chart Reviewed Final Anesthetic Review Family History of Problems with Anesthesia: No History of Problems with Anesthesia: No NPO: Yes ASA Class: III Final Preanesthetic Review: No Changes in Pt Med Stat, Meds/Allgs Chart Reviewed, Consent Obtained/Reviewed and Anes Risks/Benef Reviewed Patient Risk: Intermediate Procedure Risk: Intermediate Anesthetic Plan Anesthetic Plan: GA and Agree w/ Assess. and Plan Disposition: Standard PACU
--- NOTE | 2025-02-17 14:40 | PM.OP ---
Brief Operative Note Date of Service: 02/17/25 Pre-op diagnosis: cbd stones Procedure: ERCP with sphincterotomy and stone extraction Surgeon: Vamshi Ruiz MD Anesthesia: GETA Was an Operations Trainer used for this Procedure?: No Estimated blood loss (mL): 0 Pathology: none sent Condition: stable Disposition: PACU
--- NOTE | 2025-02-17 14:42 | PM.EVENT ---
Event Note Date of Service: 02/17/25 Event Note: GI 2 CBD stones removed at time of ERCP low fat diet d/c when stable Time Spent With Patient Time: Total time managing care of this patient today ____ minutes.
--- NOTE | 2025-02-17 20:37 | OP_ITS ---
DATE OF SERVICE: 02/17/2025 SURGEON: Vamshi Ruiz MD INDICATIONS: Common bile duct stones. PREOPERATIVE DIAGNOSIS: POSTOPERATIVE DIAGNOSIS: PROCEDURE PERFORMED: Endoscopic retrograde cholangiopancreatography with sphincterotomy and stone extraction. ESTIMATED BLOOD LOSS: COMPLICATIONS: ANESTHESIA: General anesthesia. ASSISTANTS: SPECIMENS: PROCEDURE DESCRIPTION: A history and physical was performed. The risks and benefits of the procedure were explained to the patient, and informed consent was obtained. The patient was placed in the semiprone position with a wedge under the right shoulder. The disposable duodenoscope was introduced into the esophagus, stomach, and duodenum. Examination was performed, and the scope was removed. She tolerated the procedure well and was returned to recovery area in stable condition. FINDINGS: Endoscopy: Limited examination of the esophagus, stomach, and duodenum was within normal limits. The major papilla appeared normal with bile present that was yellow and showed no signs of infection. The common bile duct was cannulated using a guidewire and sphincterotome. Injection of contrast confirmed at least 2 filling defects consistent with the findings on MRI. A sphincterotomy was performed with no immediate complications to approximately 8 to 10 mm. Next, the 9 to 12 mm balloon extraction catheter was inflated and swept through the duct multiple times with removal of 2 small stones. No stones were seen on repeat cholangiography and the balloon easily pulled through into the duodenum in its fully inflated position. No pancreatogram was attempted or obtained. IMPRESSION: Common bile duct stones. RECOMMENDATION: 1. Advance diet. 2. Followup as needed. MD MIRIAM Montejo/MODL / [id number]
[2025-02-18 03:47] VITALS: BP 113/70; PULSE 60; RESP 16; TEMP 36.6; O2SAT 99
[2025-02-18] MEDS: metroNIDAZOLE/NS 500 MG/100 ML PIGGYBACK 100 MG IV (05:52)
[2025-02-18 07:06] LABS: Hematocrit 40.8 % (37.0-47.0); Hemoglobin 12.9 g/dl (12.0-16.0); Mean Corpuscular HGB Conc 31.6 g/dl (31.0-35.0); Mean Corpuscular Hemoglobin 25.5 pg (27.0-33.0); Mean Corpuscular Volume 80.6 fL (80.0-98.0); NRBC Abs Auto 0.000 X10*3/uL (0.0-0.012); NRBC Pct Auto 0.0 /100WBC (0.0-0.2); Platelet Count 302 X10*3/uL (160-400); Red Blood Count 5.06 X10*6/uL (4.20-5.50); White Blood Count 8.1 X10*3/uL (4.8-10.8)
[2025-02-18 07:31] LABS: Alanine Aminotransferase 405 U/L (0-31); Albumin Level 3.9 g/dL (3.5-5.0); Alkaline Phosphatase 273 U/L (39-117); Anion Gap 13 (12-20); Aspartate Amino Transferase 88 U/L (5-31); Blood Urea Nitrogen 13 mg/dL (9-16); Calcium 9.0 mg/dL (8.4-10.2); Carbon Dioxide 23 mmol/L (22-29); Chloride 109 mmol/L (96-108); Creatinine Clr Calc Pharmacy 116.0; Estimated Glomerular Filt Rate > 60; Potassium 3.8 mmol/L (3.3-5.1); Sodium 141 mmol/L (135-145); Total Protein 7.0 g/dL (6.5-8.0)
[2025-02-18 07:45] VITALS: BP 123/67; PULSE 70; RESP 18; TEMP 36.3; O2SAT 99
--- NOTE | 2025-02-18 08:23 | HO.POSTANES ---
Post Anesthesia Evaluation Post Anesthesia Evaluation Date of Service: 02/18/25 Vital Signs: Vital Signs Temp Pulse Resp BP Pulse Ox O2 Del Method 02/18/25 07:45 97.3 F 70 18 123/67 99 Room Air 02/18/25 03:47 97.8 F 60 16 113/70 99 Room Air Anesthesia: General Mental Status: Awake Pain Control: Satisfactory Nausea/Vomiting: None Hydration: Adequate Anesthesia-Related Issues: No Anes. Related Issues
[2025-02-18 09:15] VITALS: BP 127/83; PULSE 87
[2025-02-18] MEDS: 0.9 % Sodium Chloride Flush 3 ML SYRINGE IVFLUSH (09:22)
--- NOTE | 2025-02-18 11:07 | PM.DS ---
DS: Providers Provider Date of Service: 02/18/25 Date of admission: 02/15/25 17:11 Date of discharge: 02/18/25 Primary care physician: Mary Jane Suarez MD Consults: 02/15/25 17:14 Consult to Gastroenterology Routine Consulting Provider: Pioneer Ramez Granados Reason for consultation: cholangitis DS: Diagnosis Discharge Diagnosis (1) Choledocholithiasis: Status: Acute DS: Summary Hospital Course Hospital Course: From the history and physical by the admitting hospitalist, Nidhi Awad NP, 02/15/25: '50-year-old woman with a history of rheumatoid arthritis, hypertension presented to the ER with complaints of gnawing, burning epigastric pain radiating to her back that started 2-3 days ago with some relief from Tums with 2-3 episodes of vomiting yesterday. She denied fever, chills, diarrhea, recent travel, sick contacts. She does have a history of cholecystectomy. In the ER, she was given a dose of Zosyn, Maalox, Zofran, Toradol, 1 L of IV fluid. Abdominal CT showing mild prominence of central intrahepatic and common bile ducts that may represent sequela of prior cholecystectomy however given clinical history of obstructive physiology and jaundice further evaluation as warranted., also noted mild periportal edema. No fever leukocytosis noted. Total bilirubin 3.3, direct bilirubin 2.5, AST 539, ALT 936, alk phos 356 She will be admitted for further management and treatment of acute hepatitis likely secondary to cholangitis.' 50yo F with RA, HTN, ILD, hx cholecystectomy presenting with abd pain, found to have cholestasis/transaminitis due to choledocholithiasis. She was admitted to the medical-surgical unit with GI consultation. She was initially treated with ceftriaxone and metronidazole in case of cholangitis. MRCP showed 3 CBD stones, 1 at the ampulla and 2 in the distal CBD with CBD dilation to 10 mm. She underwent ERCP with removal of CBD sontes on 02/17/25; no evidence of infection. Diet was advanced and she was discharged home. Time Attestation Discharge Coordination Time (in mins): 35 Quality: Safe Use of Opioids Does Pt have an Active Cancer Diagnosis on the Problem List?: No Quality: Stroke Does the patient have a stroke diagnosis?: No Physical Exam Vital Signs: Vital Signs: Last Vital Signs Temp 97.3 F 12/10/25 07:45 Pulse 87 02/18/25 09:15 Resp 18 02/18/25 07:45 BP 127/83 02/18/25 09:15 Pulse Ox 99 02/18/25 07:45 O2 Del Method Room Air 02/18/25 07:45 BMI result Body Mass Index 30.1 Gen: in no acute distress HEENT: sclera anicteric, moist mucus membranes Neck: supple Lungs: clear to auscultation bilaterally Heart: regular rate and rhythm, no murmurs Abd: soft, non-tender, non-distended Ext: no edema Skin: warm/well-perfused Neuro: alert and oriented x3, no focal findings Psych: appropriate affect DS: Data Data Completed and Pending Completed studies during hospitalization [Text1]: Laboratory Results WBC 8.1 X10*3/uL (4.8-10.8) 02/18/25 05:56 RBC 5.06 X10*6/uL (4.20-5.50) 02/18/25 05:56 Hgb 12.9 g/dl (12.0-16.0) 02/18/25 05:56 Hct 40.8 % (37.0-47.0) 02/18/25 05:56 MCV 80.6 fL (80.0-98.0) 02/18/25 05:56 MCH 25.5 pg (27.0-33.0) L 02/18/25 05:56 MCHC 31.6 g/dl (31.0-35.0) 02/18/25 05:56 RDW 16.0 % (11.0-16.0) 02/18/25 05:56 Plt Count 302 X10*3/uL (160-400) 02/18/25 05:56 MPV 9.2 fL (9.4-12.3) L 02/18/25 05:56 Immature Gran % (Auto) 0.0 % (0.0-0.4) 02/17/25 05:35 Neut % (Auto) 47.5 % (45-73) 02/17/25 05:35 Lymph % (Auto) 36.1 % (20-40) 02/17/25 05:35 [place] % (Auto) 11.6 % (2-11) H 02/17/25 05:35 Eos % (Auto) 3.6 % (0-4) 02/17/25 05:35 Baso % (Auto) 1.2 % (0-2) 02/17/25 05:35 Lymph # (Auto) 1.5 X10*3/uL (1.2-4.9) 02/17/25 05:35 [place] # (Auto) 0.5 X10*3/uL (0.1-1.2) 02/17/25 05:35 Eos # (Auto) 0.2 X10*3/uL (0.0-0.4) 02/17/25 05:35 Baso # (Auto) 0.1 X10*3/uL (0.0-0.2) 02/17/25 05:35 Abs Immat Gran (auto) 0.00 X10*3/uL (0.00-0.03) 02/17/25 05:35 Absolute Neuts (auto) 2.0 x10*3/uL (2.0-8.3) 02/17/25 05:35 Absolute Nucleated RBC 0.000 X10*3/uL (0.0-0.012) 02/18/25 05:56 Nucleated RBC % (auto) 0.0 /100WBC (0.0-0.2) 02/18/25 05:56 PT 12.6 SEC (11.2-13.5) 02/15/25 14:20 INR 1.0 (0.9-1.1) 02/15/25 14:20 Sodium 141 mmol/L (135-145) 02/18/25 05:56 Potassium 3.8 mmol/L (3.3-5.1) 02/18/25 05:56 Chloride 109 mmol/L (96-108) H 02/18/25 05:56 Carbon Dioxide 23 mmol/L (22-29) 02/18/25 05:56 Anion Gap 13 (12-20) 02/18/25 05:56 BUN 13 mg/dL (9-16) 02/18/25 05:56 Creatinine 0.62 mg/dL (0.5-1.4) 02/18/25 05:56 Estim Creat Clear Calc 116.0 02/18/25 05:56 Estimated GFR > 60 02/18/25 05:56 Random Glucose 92 mg/dL (60-115) 02/18/25 05:56 Lactic Acid 0.7 mmol/L (0.5-2.0) 02/15/25 16:44 Calcium 9.0 mg/dL (8.4-10.2) D 02/18/25 05:56 Magnesium 1.9 mg/dL (1.6-2.6) 02/16/25 05:40 Total Bilirubin 1.4 mg/dL (0.0-1.0) H 02/18/25 05:56 Direct Bilirubin 0.8 mg/dL (0.0-0.5) H 02/18/25 05:56 AST 88 U/L (5-31) H 02/18/25 05:56 ALT 405 U/L (0-31) H 02/18/25 05:56 Alkaline Phosphatase 273 U/L (39-117) H 02/18/25 05:56 Ammonia 36 umol/L (13-55) 02/15/25 14:20 Troponin I High Sens < 2.7 ng/L (<3.5-17.0) 02/15/25 12:26 Total Protein 7.0 g/dL (6.5-8.0) 02/18/25 05:56 Albumin 3.9 g/dL (3.5-5.0) 02/18/25 05:56 Lipase 19 U/L (8-78) 02/15/25 12:26 Urine Color Dark Yellow 02/15/25 13:58 Urine Appearance Clear 02/15/25 13:58 Urine pH 5.5 (5.0-9.0) 02/15/25 13:58 Ur Specific [place] 1.020 (1.005-1.025) 02/15/25 13:58 Urine Protein 30 (1+) mg/dL (Neg-Trace) H 02/15/25 13:58 Urine Glucose (UA) Negative mg/dL (Negative) 02/15/25 13:58 Urine Ketones Negative mg/dL (Negative) 02/15/25 13:58 Urine Blood Negative (Negative) 02/15/25 13:58 Urine Nitrite See Note (Negative) 02/15/25 13:58 Ur Leukocyte Esterase Trace (Negative) H 02/15/25 13:58 Urine RBC 0-2 /HPF (0-2) 02/15/25 13:58 Urine WBC 0-5 /HPF (0-5) 02/15/25 13:58 Ur Squamous Epith Cells 6-10 /HPF (0-2) 02/15/25 13:58 Urine Bacteria Trace (None Seen) 02/15/25 13:58 Hyaline Casts 0-2 /LPF (0-2) 02/15/25 13:58 Urine Test NEGATIVE (NEGATIVE) 02/15/25 13:58 Acetaminophen < 3 mcg/mL (<30) 02/15/25 14:20 Hepatitis A IgM Ab Nonreactive (Nonreactive) 02/15/25 14:20 Hep Bs Antigen Negative (Negative) 02/15/25 14:20 Hep Bs Antibody NONREACTIVE (Nonreactive) 02/15/25 14:20 Hep B Core Total Ab Nonreactive (Nonreactive) 02/15/25 14:20 Hepatitis C Ab (EIA) Nonreactive (Nonreactive) 02/15/25 14:20 Impressions Cholangiopancreatography MRI 02/16/25 08:50 IMPRESSION: Status post cholecystectomy. Choledocholithiasis as described. Electronically signed by: Obed Sun MD 02/16/2025 09:33 AM EST RP Guidance Fluoroscopy 02/17/25 13:29 IMPRESSION: Fluoroscopy guidance for ERCP. Electronically signed by: Alejandra Hickman MD 02/17/2025 03:30 PM EST RP Discharge Plan Discharge Anticipated Discharge Date/Time: 02/18/25 11:04 Patient Disposition: Home, Self-Care Discharge Diagnosis: choledocholithiasis Referrals: Mary Jane Suarez MD [Primary Care Provider, Internal Medicine] - 1 Week Obed Lazcano MD [Physician, Gastroenterology] - 2 Weeks Discharge Medications: Continued hydroxychloroquine [Plaquenil] 200 mg tablet 400 mg PO DAILY Qty: 60 2RF sulfasalazine 500 mg tablet,delayed release (DR/EC) 1 g PO BID 90 Days Qty: 360 0RF cetirizine 10 mg tablet 10 mg PO DAILY prednisone 5 mg tablet 5 mg PO DAILY Patient Comments: 02/15- Patient states they are on day 5 of 14 of one 5 mg tablet daily. Rx Instructions: patient is on day 5 of 1 tab 5 mg dailt, 9 days reamining Take 4 tablets daily for 14 days, 3 tablets daily for 14 days, 2 tablets daily for 14 days, 1 tablet daily for 14 days then stop. losartan 50 mg tablet 50 mg PO DAILY albuterol sulfate 2.5 mg /3 mL (0.083 %) solution for nebulization 2.5 mg inhalation Q4H PRN (Reason: wheezing) ferrous sulfate 325 mg (65 mg iron) tablet 325 mg PO DAILY esomeprazole magnesium 40 mg capsule,delayed release(DR/EC) 40 mg PO DAILY PRN (Reason: indigestion) Discharge Orders: Discharge Order (Routine); Ordered 02/18/25 Ordered By: Stanford Nelson Diet: Low fat, low cholesterol Activity on Discharge: As tolerated Stand Alone Forms: Patient Portal Discharge page Print Language: Frisian Care Plan Goals: GI health Health Concerns: choledocholithiasis Plan of Treatment: low fat diet follow up with Gastroenterology in 2 weeks Please follow up with your primary care doctor within 1 week. Return to the hospital if you experience recurrent or worsening symptoms. Assessment: See Discharge Summary.
--- NOTE | 2025-02-18 11:10 | MHC.CM.PN ---
DP: PT HAS BEEN MEDICALLY CLEARED FOR DC HOME, NO SERVICES. PT HAS OWN RIDE HOME.
[2025-02-18 11:45] VITALS: BP 132/84; PULSE 87; RESP 18; TEMP 36.1; O2SAT 98
== END 2025-02-18 11:49 | disposition home or self-care (01) ==
LOC: HO.ED 16:11 → HO.EDOVER 17:16 → HO.S3 17:50
PROVIDERS: Emergency Medicine; Internal Medicine; Internal Medicine Gastroenterology; Physician Assistant; Admitting Provider Nurse Practitioner Acute Care; Emergency Provider Emergency Medicine Emergency Medical Services; PCP Internal Medicine; Visit Provider Family Medicine
PROC: 0FC98ZZ Extirpation of Matter from Common Bile Duct, Via Natural or Artificial Opening Endoscopic (ICD-10-PCS; CPT 43260; principal; 2025-02-17 12:10)
DX: K80.51 Calculus of bile duct without cholangitis or cholecystitis with obstruction (principal); J84.9 Interstitial pulmonary disease, unspecified; I10 Essential (primary) hypertension; K21.9 Gastro-esophageal reflux disease without esophagitis; M06.9 Rheumatoid arthritis, unspecified; Z87.891 Personal history of nicotine dependence; Z79.52 Long term (current) use of systemic steroids; Z79.899 Other long term (current) drug therapy
CPT/HCPCS: 36415; 71046; 74177; 74181; 76705; 80048; 80053; 80076; 80143; 81001; 81025; 82140; 82248; 83605; 83690; 83735; 84484; 85025; 85027; 85610; 86704; 86706; 86709; 86803; 87040; 87340; 93005; 99285; C1748; J0696; J1100; J1610; J1644; J1836; J1885; J2003; J2250; J2270; J2405; J2543; J2704; J3010; J7120; Q9967

== ENCOUNTER → 2025-02-15 11:45 | Outpatient (BNV) | payer OTHER, SELFPAY | PROVIDERS: Admitting Provider Nurse Practitioner Acute Care; Emergency Provider Emergency Medicine Emergency Medical Services; PCP Internal Medicine; Visit Provider Internal Medicine Cardiovascular Disease | DX: R07.9 Chest pain, unspecified (principal) | CPT/HCPCS: 93010 ==

== ENCOUNTER → 2025-02-15 12:03 | Outpatient (BNV) | payer OTHER, SELFPAY | PROVIDERS: PCP Internal Medicine; Visit Provider Radiology Diagnostic Radiology | DX: R17 Unspecified jaundice (principal); K83.8 Other specified diseases of biliary tract; R60.0 Localized edema; R07.9 Chest pain, unspecified | CPT/HCPCS: 71046; 74177; 76705 ==

== ENCOUNTER 2025-02-15 17:11 | Outpatient (BNV) | payer OTHER, SELFPAY | END 2025-02-16 08:50 | PROVIDERS: Admitting Provider Nurse Practitioner Acute Care; Emergency Provider Emergency Medicine Emergency Medical Services; PCP Internal Medicine; Visit Provider Radiology Diagnostic Radiology | DX: K80.50 Calculus of bile duct without cholangitis or cholecystitis without obstruction (principal); Z90.49 Acquired absence of other specified parts of digestive tract | CPT/HCPCS: 74181 ==

== ENCOUNTER → 2025-02-15 17:11 | Outpatient (BNV) | payer OTHER, SELFPAY | PROVIDERS: Admitting Provider Nurse Practitioner Acute Care; Emergency Provider Emergency Medicine Emergency Medical Services; PCP Internal Medicine; Visit Provider Nurse Practitioner Acute Care | DX: K80.50 Calculus of bile duct without cholangitis or cholecystitis without obstruction (principal) | CPT/HCPCS: 99223; 99232 ==

== ENCOUNTER 2025-02-25 10:36 | Outpatient (AMB) | payer OTHER, SELFPAY ==
--- OUTSIDE RECORDS SUMMARY | 2025-02-17 07:00 | XMS_ITS ---
Author Organization [facility] Address [address] [place] [id number] Care Team Providers Care Deli/Bakery Associate Name Role Phone Daniela SOMMER, Mary Jane Primary Care Provider Mohan Ruiz Jr, Vamshi Wolf REASON FOR VISIT COMMON BILE DUCT STONES Encounters Encounter Location Date Provider Diagnosis [facility] [place] [address] [place], [place] [id number] 02/17/2025 Vamshi Ruiz Jr Plan Of Treatment No Information Progress Notes * SUNNI GARCIADANIELB:[birth year] (50 yo F)Acc No.[id number]:02/17/2025 Progress Notes Patient: SAMANTHA MONZON Provider: Benson Ruiz MD :1975 A ge:50 Y S ex:Female Date:02/17/2025 Address:[address] [place], [place] [id number] Pcp:Mary Jane Suarez MD Subjective: * Chief [...] Date: 04/20/2024 Generated for Madhuri rodriguez/Ana/Neysmitting on: 04/28/2024 01:23 PM EST
--- NOTE | 2025-02-25 10:38 | MHC.OFFVIS ---
Vital Signs 02/25/25 10:39 Height 5 ft 5 in Weight 179 lb 14.355 oz BMI 29.9 BP 160/100 H Blood Pressure Location Lt brachial Position Sitting Pulse 88 Pulse Source Pulse Oximeter Pulse Oximetry (%) 96 Oxygen Delivery Method Room Air Intake Visit Reasons: follow up Intake Note: New Patient presents today with RA. Accompanied by: Self / Same As Patient Allergies Ramicade Allergy (Unknown, Uncoded 02/15/25 12:05) stomach upset HPI HPI follow up: Details: Gallstones were removed recently. History of cholecystectomy 20 years ago. RUQ pain resolved. She had increased pain recently and she had to increase her prednisone to 20 mg daily, which she tapered now to 5 mg daily starting yesterday. She has days where she does not take prednisone because she can tolerate the pain. Hands are swollen. She is avoiding Tylenol because of her elevated liver enzymes. [facility] Medical History Allergies GERD (gastroesophageal reflux disease) HTN (hypertension) Rheumatoid arthritis Osteoarthritis Migraines Interstitial lung disease Fibromyalgia Surgical History History of lung biopsy History of cholecystectomy Hx of tonsillectomy Previous section Social History Household Members: Family Housing: House Do you presently have visiting nurse or other home services: No Patient Tobacco Use Status: Former Tobacco user e-Cigarette/Vaping Use: Never Used Second Hand Smoke Exposure: No service: No Physical Exam Vital Signs: Last Vital Signs Pulse 88 02/25/25 10:39 BP 160/100 H 02/25/25 10:39 Pulse Ox 96 02/25/25 10:39 Oxygen Delivery Method Room Air 02/25/25 10:39 BMI result Body Mass Index 29.9 Const Other: General: Comfortable CVS: RRR Respiratory: clear to auscultation bilaterally. Good respiratory effort Skin: No lesions seen MSK: Tender to palpate bilateral MCPs, IPs, PIPs, wrists, elbows, bilateral shoulders with synovitis of bilateral 2-3rd MCPs, 3rd PIP and left wrist. She has synovitis of right knee. Tenderness of bilateral knees and MTPs. Bilateral hallux valgus present with tenderness. Limited range of motion of shoulders due to pain. Limited bilateral hip and knee flexion. Assessment & Plan Assessment & Plan (1) Rheumatoid arthritis, seropositive: Comment: Inflammatory arthritis is not controlled. High disease activity. She is tolerating combination hydroxychloroquine and Sulfasalazine. She had a recent pulmonary visit with PFTs and reports that she was told that her ILD use stable. We discussed DMARD therapy specifically biologic treatment. Biologic treatment is indicated with severe disease. She recently had hospitalization for gallstones and has elevated LFTs (ALT 405 AST 88, improving). Cimzia is a great option for patient with reported hepatitis equal or less than 4% incidence. Avoiding Actemra, COREY inhibitors, leflunomide, methotrexate due elevated LFTs. Leflunomide and methotrexate are contraindicated in her history of having ILD. Rheumatology history: Anti CCP antibody for 12.6, rheumatoid factor greater than 250. Diagnosed 20 years ago. Initially she was on methotrexate but it was discontinued due to concern of development of interstitial lung disease/pulmonary toxicity. Etanercept secondary treatment failure, Humira treatment failure, infliximab infusion reaction of diaphoresis and vomiting, abatacept secondary treatment failure after 7 years, tofacitinib February 2024 to current treatment failure. Code(s): M05.9 - Rheumatoid arthritis with rheumatoid factor, unspecified Category: Medical Plan: She will continue 5 mg daily. She will take prednisone 10 mg prn joint pain and swelling increases with a goal to discontinue prednisone after inflammatory arthritis is controlled on DMARD therapy Labs for disease and drug monitoring ordered. Continue hydroxychloroquine 400 mg daily. She will request surveillance exam for hydroxychloroquine with her next eye exam Increase Sulfasalazine to 1500 mg twice a day Cimzia PA for induction and maintenance. Cimzia induction 400 mg at weeks 0, 2 and 4. Then 400 mg every 4 weeks maintenance. Once Cimzia is approved, it will replace Sulfasalazine. She will continue hydroxychloroquine. She will have labs in 1 month for drug monitoring. She will need labs for drug monitoring 1 month after starting Cimzia with CBC, creatinine, liver panel Requesting pulmonology note Return to clinic in 3 months (2) Diffuse interstitial rheumatoid disease of lung: Code(s): M05.10 - Rheumatoid lung disease with rheumatoid arthritis of unspecified site Category: Medical Plan: Follow up with pulmonologists Dr. Hernández. Requesting last clinic note (3) Other continuous churn buttermaker (current) drug therapy: Code(s): Z79.899 - Other skilled nursing (current) drug therapy Category: Medical Plan: See above Orders: Orders Creatinine 1 Month Z79.899 - Other skilled nursing (current) drug therapy Liver Panel 1 Month M05.9 - Rheumatoid arthritis with rheumatoid factor, unspecified, Z79.899 - Other skilled nursing (current) drug therapy Complete Blood Count Auto Diff 1 Month Z79.899 - Other continuous churn buttermaker (current) drug therapy Medications: New certolizumab pegol (Cimzia) administer as 2 equally divided doses at 2 different sites in abdomen or thigh 400 mg (2 mL) subcut Q4W 1 ea 2RF certolizumab pegol (Cimzia Starter Kit) administer as 2 equally divided doses at 2 different sites in abdomen or thigh. Induction Week 0, 2 and 4. First dose administration in office with nurse visit. Labs due 1 month after 1st dose. 400 mg (2 mL) subcut Q2W 3 ea 0RF 3 doses Changed From hydroxychloroquine (Plaquenil) 400 mg (2 x 200 mg) PO DAILY 60 tabs 2RF To hydroxychloroquine (Plaquenil) 400 mg (2 x 200 mg) PO DAILY 180 tabs 1RF 90 days From prednisone patient is on day 5 of 1 tab 5 mg dailt, 9 days reamining Take 4 tablets daily for 14 days, 3 tablets daily for 14 days, 2 tablets daily for 14 days, 1 tablet daily for 14 days then stop. 5 mg PO DAILY To prednisone Take with food 5 mg PO DAILY 30 tabs 2RF From sulfasalazine 1 g (2 x 500 mg) PO BID 90 days 360 tabs 0RF To sulfasalazine 1.5 grams (3 x 500 mg) PO BID 540 tabs 0RF 90 days Coding Level of Care Code Est Pt Level 4 (71275) Add On Problem Visit Only Diagnoses Rheumatoid arthritis, seropositive M05.9 Diffuse interstitial rheumatoid disease of lung M05.10 Other skilled nursing (current) drug therapy Z79.899
[2025-02-25 10:39] VITALS: BP 160/100; PULSE 88; O2SAT 96; BMI 29.9
--- OUTSIDE RECORDS SUMMARY | 2025-02-25 13:23 | XMS_ITS | Encounter Summary ---
Author Organization [facility] Address [address] [place] [id number] Phone Care Team Providers Care International Broadcast Music Librarian Name Role Phone Mary Jane Suarez MD Primary Care Provider [phone] Encounter Details Date Type Department Care Team (Late st Contact Info) Description 04/19/2024 Procedure Pass [facility], Ct Scan - [facility] [address] [place] [address] Social History Tobacco Use Types Packs/Day Years [...] 04/19/2024 7:11 AM Valorie Dailey RN * [place] Suicide Severity Rating Scale (Screener/Recent Self-Report) Question [...] documented as of this encounter Care Teams [employer] Librarian Relationship Specialty Start Date End Date Mary Jane Suarez MD [address] [address] PCP - General Internal Medicine 12/04/22 documented as of this encounter Additional Source Comments The information contained in this document represents components of the legal health record. It is not the complete legal health record.[facility]
--- OUTSIDE RECORDS SUMMARY | 2025-02-25 13:24 | XMS_ITS | Clinical Summary ---
Author Organization [address] [facility] Address [address] [place] [address] Phone Care Team Providers Care Vending Machine Operator Name Role Phone Mary Jane Suarez MD Primary Care Provider [phone] Allergies No known active allergies Medications acetaminophen [...] Care Team Description 12/25/2024 8:38 AM EDT - 12/25/2024 11:59 PM EDT Hospital Encounter [facility] [place] [address] [place] [address] [place]interstitial lung disease) [place] [place] [facility] [place] Discharge Disposition: Home or Self Care 12/19/2024 11:30 AM EDT Office Visit Pulmonology - [address] [place] [phone] Hank Piper MD ILD (interstitial lung disease) [place] [place] [facility] [place] (Primary Dx); Rheumatoid arthritis, involving unspecified site, unspecified whether rheumatoid factor present [place] [place] [facility] [place] 12/09/2024 10:49 AM EDT - 12/09/2024 11:59 PM EDT Hospital Encounter [facility] [address] [place] [phone] Pulmonary fibrosis [place] [place] [facility] [place] Discharge Disposition: Home or Self Care from Last 3 Months Surgical History Surgery Date Site/Laterality Comments CHOLECYSTECTOMY PROCEDURE: HISTORICAL CHOLECYSTECTOMY Medical History Medical History Date Comments Rheumatoid arthritis, adult [place] [place] [facility] [place] 07/24/2017 DX:Rheumatoid arthritis, liane lt ([facility]) Asthma 07/24/2017 DX:Asthma Chronic interstitial lung di sease [place] [place] [facility] [place] 07/24/2017 DX:Chronic interstitial ailyn g disease ([facility]) Chronic sinusitis 07/24/2017 DX:Chronic sin usitis Post-nasal [...] PM EDT Sexual Orientation Not on file Last Filed Vital Signs Vital Sign Reading [...] 9:45 AM EDT Office Visit Pulmonology - [address] [place] [address] Hank Piper MD [address] [place] [phone] Health Maintenance Due Date Last Done Comments [...] Procedure Name Priority Date/Time Associated Diagnosis Comments XR CHEST 2 VIEWS Routine 12/25/2024 8:51 AM EDT ILD (interstitial lung disease) ([facility] V24, [facility] V28) HC SPIROMETRY BRONCHODILATION RESPONSIVENESS PRE/POST BRONCHODILATOR ADMINISTRATION Routine 12/09/2024 11:39 AM EDT Pulmonary fibrosis ([facility] V24, [facility] V28) from Last 3 Months Results * XR Chest 2 Views (12/25/2024 8:51 AM EDT) Anatomical Region Laterality Modality Body Radiographic Brianna ging 12/25/2024 4:25 PM EDT Impressions 12/25/2024 4:27 PM EDT No acute cardiopulmonary process. Stable interstitial changes. -------- FINAL REPORT -------- Dictated By: Miguel Ángel Bucio Dictated Date: 12/25/2024 16:25 ET Assigned Physician: Miguel Ángel Bucio Reviewed and Electronically Signed By: Miguel Ángel Bucio Signed Date: 12/25/2024 16:27 ET Workstation ID: [id number] Transcribed By: Self Edit Transcribed Date: 12/25/2024 16:25 ET Narrative 12/25/2024 4:27 PM EDT HISTORY: ILD TECHNIQUE: PA and lateral radiographs of the chest COMPARISON: Chest radiograph from 06/09/2022 FINDINGS: There is a normal cardiomediastinal silhouette. Stable coarse reticular markings within the right midlung zone. Stable blunting of the right costophrenic angle. Mild degenerative changes of thoracic spine. Surgical manuela overlying the right upper quadrant. Procedure Note Miguel Ángel Bucio MD - 12/25/2024 HISTORY: ILD TECHNIQUE: PA and lateral radiographs of the chest COMPARISON: Chest radiograph from 06/09/2022 FINDINGS: There is a normal cardiomediastinal silhouette. Stable coarse reticularmarkings within the right midlung zone. Stable blunting of the rightcostophrenic angle. Mild degenerative changes of thoracic spine. Surgicalstaples overlying the right upper quadrant. IMPRESSION: No acute cardiopulmonary process. Stable interstitial changes. -------- FINAL REPORT -------- Dictated By: Miguel Ángel Bucio Dictated Date: 12/25/2024 16:25 ET Assigned Physician: Miguel Ángel Bucio Reviewed and Electronically Signed By: Miguel Ángel Bucio Signed Date: 12/25/2024 16:27 ET Workstation ID: [id number] Transcribed By: Self Edit Transcribed Date: 12/25/2024 16:25 ET us Hank Piper MD IMG XR PROCEDURES Final Result * Pulmonary function testing: Spirometry with Bronchodilator, Carbon Monoxide Diffusing Capacity, Vital Capacity Test, Nitrogen Wash Out (12/09/2024 11:39 AM EDT) Narrative Hank Piper MD - 12/11/2024 8:10 PM EDT Table formatting from the original result was not included. Images from the original result were not included. [facility] [address] [place] [id number] Pulmonary Functions Report Date of service: 12/09/24 Patient Name: Samantha Mcgrath Date of : 1975 Age: 49 y.o. Gender: female Ordering Provider: Hank Piper MD Diagnosis listed on Order: Pulmonary fibrosis ([facility] V24, [facility] V28) Reason for Exam: Order Questions Answers [...] Final Result from Last 3 Months Insurance [facility] MEDICAID ADVANTAGE Care Teams Vending Machine Operator Relationship Specialty Start Date End Date Mary Jane Suarez MD [address] [place] [address] PCP - General Internal Medicine 05/28/12
--- OUTSIDE RECORDS SUMMARY | 2025-02-25 13:24 | XMS_ITS | Encounter Summary ---
Author Organization [facility] Address [address] [place] [address] Phone Care Team Providers Care Special Police Officer Name Role Phone Mary Jane Suarez MD Primary Care Provider [phone] Reason for Visit * Reason Comments Medication Refill Encounter Details Date Type Department Care Team (Late st Contact Info) Description 12/01/2024 Refill [facility] [address] [place] [address] Maria Victoria Desir MD [address] [facility], [address] [place] [address] [email or web address] Medication Refill Social History Tobacco Use Types [...] factor documented in this encounter Care Teams Special Police Officer Relationship Specialty Start Date End Date Mary Jane Suarez MD [address] [place] [address] PCP - General Internal Medicine 12/04/22 documented as of this encounter Additional Source Comments The information contained in this document represents components of the legal health record. It is not the complete legal health record.[facility]
--- OUTSIDE RECORDS SUMMARY | 2025-02-25 13:24 | XMS_ITS | Patient Health Record ---
Author Organization [facility] Address [address] [place] [address] Care Team Providers Care Stunt Person Name Role Phone Mary Jane Sheppard MD Primary Care Provider Vamshi Valderrama Jr [facility] [phone] Results Component Value Reference Range Flag Notes FL guidance in OR Reviewed date:02/18/2025 08:36:23 AM Interpretation: Performing Lab: Notes/Report: [address] [address] Fluoroscopy Report Signed Patient: Samantha Mcgrath MR#: [id number] : 1975 Acct:[id number] Age/Sex: 50 / F ADM Date: 02/15/25 Loc: .S3 380-[address]: Stanford Nelson MD Ordering Physician: Vamshi Ruiz MD Date of Service: 02/17/25 Procedure(s): FL guidance in OR Accession Number(s): [id number] cc: Vamshi Ruiz MD; MARY JANE SHEPPARD MD Reason for Exam: ERCP EXAMINATION: FLUOROSCOPY GUIDANCE FOR NEEDLE PLACEMENT CLINICAL INFORMATION: ERCP COMPARISON: Previous ultrasound and abdominal and pelvic CT February 15, 2025 and MRCP February 16, 2025 TECHNIQUE: Intraoperative fluoroscopy guidance provided for ERCP. 13 submitted images. FINDINGS: There is mild extrahepatic biliary duct dilatation. Images demonstrate filling defects in the distal common bile duct probably representing stones. Subsequent images demonstrate a wire and inflated balloon in the common bile duct. Later images demonstrate decompression of the biliary system and passage of contrast into the small bowel. There are surgical clips from cholecystectomy. See procedure note for detailed findings. FLUOROSCOPY TIME: 4.1 minutes DOSE AREA PRODUCT: 20 Gy-cm2 FL/FL guidance in OR IMPRESSION: Fluoroscopy guidance for ERCP. Electronically signed by: Alejandra Hickman MD 02/17/2025 03:30 PM [facility] Dictated By: Alejandra Hickman MD Signed By: <Electronically signed by Alejandra Hickman MD in OV> 02/17/25 1530 DD/ 1329 TD/TT: 02/17/25 1432 Mining Plant Operator: WENDY Liver Panel Reviewed date:02/18/2025 08:36:23 AM Interpretation: Performing Lab:[address] [address] Notes/Report: Bilirubin Direct 0.8 0.0-0.5 mg/dL H Comprehensive Met. Panel Reviewed date:02/18/2025 08:36:23 AM Interpretation: Performing Lab:[facility], [address] [place] [phone] Notes/Report: Sodium 141 135-145 mmol/L N Potassium 3.8 3.3-5.1 mmol/L N Chloride 109 96-108 mmol/L H Carbon Dioxide 23 22-29 mmol/L N Anion Gap 13 12-20 N Blood Urea Nitrogen 13 9-16 mg/dL N Creatinine 0.62 0.5-1.4 mg/dL N Creatinine Clr Calc Pharmacy 116.0 Provided height and weight: 165.1 cm, 82 kg. eGFR (calculated from the MDRD study equation) and eCrCl (calculated from the Cockcroft-Gault equation) are based on different parameters and may not yield comparable results. If eCrCl result is absurd, please check patient's height/weight. Estimated Glomerular Filt Rate > 60 Chronic Kidney Disease: Estimated GFR < 60 mL/min/1.73m2 Severe Kidney Disease: Estimated GFR < 15 mL/min/1.73m2 Glucose Random 92 60-115 mg/dL N Calcium 9.0 8.4-10.2 mg/dL Bilirubin Total 1.4 0.0-1.0 mg/dL H Aspartate Amino Transferase 88 5-31 U/L H Alanine Aminotransferase 405 0-31 U/L H Total Protein 7.0 6.5-8.0 g/dL N Albumin Level 3.9 3.5-5.0 g/dL N Alkaline Phosphatase 273 39-117 U/L H Complete Blood Count no Diff Reviewed date:02/18/2025 08:36:23 AM Interpretation: Performing Lab:[facility], [address] [place] [phone] Notes/Report: White Blood Count 8.1 4.8-10.8 X10*3/uL N Red Blood Count 5.06 4.20-5.50 X10*6/uL N Hemoglobin 12.9 12.0-16.0 g/dl N Hematocrit 40.8 37.0-47.0 % N Mean Corpuscular Volume 80.6 80.0-98.0 fL N Mean Corpuscular Hemoglobin 25.5 27.0-33.0 pg L Mean Corpuscular HGB Conc 31.6 31.0-35.0 g/dl N Red Cell Distribution Width 16.0 11.0-16.0 % N Platelet Count 302 160-400 X10*3/uL N Mean Platelet Volume 9.2 9.4-12.3 fL L NRBC Pct Auto 0.0 0.0-0.2 /100WBC N NRBC Abs Auto 0.000 0.0-0.012 X10*3/uL N Complete Blood Count Auto Di ff Reviewed date:02/18/2025 08:36:23 AM Interpretation: Performing Lab:[facility], [address] [place] [phone] Notes/Report: White Blood Count 4.2 4.8-10.8 X10*3/uL L Red Blood Count 4.62 4.20-5.50 X10*6/uL N Hemoglobin 11.9 12.0-16.0 g/dl L Hematocrit 37.3 37.0-47.0 % N Mean Corpuscular Volume 80.7 80.0-98.0 fL N Mean Corpuscular Hemoglobin 25.8 27.0-33.0 pg L Mean Corpuscular HGB Conc 31.9 31.0-35.0 g/dl N Red Cell Distribution Width 16.4 11.0-16.0 % H Platelet Count 267 160-400 X10*3/uL N Mean Platelet Volume 9.4 9.4-12.3 fL N Neutrophils Percent Auto 47.5 45-73 % N Imm Gran Pct Auto 0.0 0.0-0.4 % N Lymphocytes Percent Auto 36.1 20-40 % N Monocytes Percent Auto 11.6 2-11 % H Eosinophils Percent Auto 3.6 0-4 % N Basophils Percent Auto 1.2 0-2 % N NRBC Pct Auto 0.0 0.0-0.2 /100WBC N Neutrophils Absolute Auto 2.0 2.0-8.3 x10*3/uL N Imm Gran Abs Auto 0.00 0.00-0.03 X10*3/uL N Lymphocytes Absolute Auto 1.5 1.2-4.9 X10*3/uL N Monocytes Absolute Auto 0.5 0.1-1.2 X10*3/uL N Eosinophils Absolute Auto 0.2 0.0-0.4 X10*3/uL N Basophils Absolute Auto 0.1 0.0-0.2 X10*3/uL N NRBC Abs Auto 0.000 0.0-0.012 X10*3/uL N Reason For Referral No Information Encounters Encounter Location Date Provider Diagnosis [facility] Inpatient [address] [place] [id number] 02/17/2025 Vamshi Ruiz Jr Plan Of Treatment No Information Insurance Providers Payer Name Payer Address Payer Phone Subscriber Number Group Number Insured Name Patient Relationship to Insured Coverage Start Date Coverage End Date [facility] [address] [place] [phone] [id number] SAMANTHA MCGRATH Self - patient is the insured
--- OUTSIDE RECORDS SUMMARY | 2025-02-25 13:24 | XMS_ITS | Clinical Summary ---
Author Organization [facility] Address [address] [place] [phone] Phone Care Team Providers Care Plant And Machinery Valuer Name Role Phone Mary Jane Suarez MD Primary Care Provider [phone] Allergies Active Allergy Reactions Criticality Noted Date Comments Infliximab Medium 12/25/2022 Nausea and vomiting Medications losartan (COZAAR) 25 MG tabletIndicatio ns:hypertension Take 25 mg by mouth daily. Indications: high blood pressure Active albuterol-budes onide 90-80 mcg/actuation HFAAIndications :bronchospasm prevention with asthma,as needed Take 1 Bottle by nebulization daily. Indications: bronchospasm prevention with asthma, as needed Active ferrous sulfate 325 mg (65 mg [place] iron) tablet Take 1 tablet by mouth [...] hydration, inhaling warm vapor twice daily, using Amana pot, Vicks and Sudafed consider urgent care [...] sure to inform any new MD, PA, PATROL COMMUNITY SERVICE OFFICER about treatment with [facility] particularly in emergency [...] yrs of age (p/w ILD); follows with creative writing professor Dr. Piper through [facility] Medication hx: Methotrexate resulted in hair [...] I would coordinate care with her established creative writing professor. Assessment & Plan (04/14/2024 12:18 PM EST): [...] infusion was sometime in mid December adequately Bland infusion. She has another infusion appointment coming up in the middle of February. She has stable interstitial lung disease with stable dyspnea on exertion and follows with Dr. Piper. Encounters Date Type Department Care Team Description 12/01/2024 Refill [facility] [address] [place] [address] [place] [address] Maria Victoria Desir MD Medication Refill from [...] EDT) SODIUM 135 133 - 146 mmol/L [facility] POTASSIUM 3.6 3.3 - 5.1 mmol/L [facility] CHLORIDE 100 96 - 108 mmol/L [facility] CO2 26 21 - 35 mmol/L [facility] BUN 12 6 - 19 mg/dL [facility] CREATININE 0.60 0.5 - 1.5 mg/dL [facility] GLUCOSE 85 70 - 99 mg/dL [facility] ALBUMIN 4.3 3.9 - 4.8 g/dL [facility] TOTAL PROTEIN 7.8 6.5 - 8.0 g/dL [facility] CALCIUM 9.5 8.4 - 10.3 mg/dL [facility] ALKALINE PHOSPHATASE 75 39 - 117 U/L [facility] TOTAL BILIRUBIN 0.4 0.0 - 1.2 mg/dL [facility] AST 25 0 - 37 U/L [facility] ALT 10 0 - 40 U/L [facility] GLOBULIN 3.5 1 - 4.8 g/dL [facility] EGFR 111 >59 mL/min/1.7 3m2 [facility] Comment:Estimated glomerular filtration rate calculated using the CKD-EPI refit equation. ANION GAP 13 10 - 20 mmol/L [facility] Blood 08/06/2024 10:3 6 AM EDT 08/06/2024 10:50 AM EDT us Franci Tejeda MD, MPH LAB BLOOD BKR ORDERABLES Final Result [address] [address] * Hepatitis C antibody, qualitative (08/06/2024 10:36 AM EDT) HCV NON-REACTIV E NON-REACTI VE [facility] Blood 08/06/2024 10:3 6 AM EDT 08/06/2024 10:50 AM EDT Franci Tejeda MD, MPH LAB BLOOD BKR ORDERABLES Final Result Performing Organization Address [facility]/State/ZIP Co de Phone Number [address] [address] from Last 3 Months or Most Recently Relevant to Health Maintenance Insurance [facility] [place] [address] [place] [address] ACO Care Teams Plant And Machinery Valuer Relationship Specialty Start Date End Date Mary Jane Suarez MD [id number] [place] [address] PCP - General Internal Medicine 12/04/22 Additional Source Comments The information contained in this document represents components of the legal health record. It is not the complete legal health record.[facility]
== END 2025-02-25 11:30 | disposition home or self-care (01) ==
LOC: HO.RHES 10:37
PROVIDERS: PCP Internal Medicine; Visit Provider Internal Medicine Rheumatology
DX: M05.9 Rheumatoid arthritis with rheumatoid factor, unspecified (principal); M05.10 Rheumatoid lung disease with rheumatoid arthritis of unspecified site; Z79.899 Other long term (current) drug therapy
CPT/HCPCS: 99214; G2211

== ENCOUNTER → 2025-02-25 10:36 | Outpatient (BNVA) | payer OTHER, SELFPAY | PROVIDERS: PCP Internal Medicine; Visit Provider Internal Medicine Rheumatology | DX: M05.10 Rheumatoid lung disease with rheumatoid arthritis of unspecified site (principal); M05.9 Rheumatoid arthritis with rheumatoid factor, unspecified; Z79.899 Other long term (current) drug therapy | CPT/HCPCS: 99212 ==

== ENCOUNTER 2025-03-06 13:29 | Emergency (ER) | payer OTHER, SELFPAY ==
--- OUTSIDE RECORDS SUMMARY | 2025-02-17 07:00 | XMS_ITS ---
Author Organization [facility] Address [address] [place] [id number] Care Team Providers Care Business Administration Program Chair Name Role Phone Daniela SOMMER, Mary Jane Primary Care Provider Mohan Ruiz Jr, Vamshi Wolf [phone] REASON FOR VISIT COMMON BILE DUCT STONES Encounters Encounter Location Date Provider Diagnosis [facility] Inpatient [address] [place], [place] [id number] 02/17/2025 Vamshi Ruiz Jr Plan Of Treatment No Information Progress Notes * SUNNI GARCIADANIELB:[birth year] (50 yo F)Acc No.[id number]:02/17/2025 Progress Notes Patient: SAMANTHA MONZON Provider: Benson Ruiz MD :1975 A ge:50 Y S ex:Female Date:02/17/2025 Address:[address] [place], [place] [id number] Pcp:Mary Jane Suarez MD Subjective: * Chief Complaints: * C OMMON BILE DUCT STONES Billing Information: * Procedure Codes: * The named appointment provid er may or may not be the originator of this progress note, and it is not deemed complete until electronically signed by the appointment provider. Sign off status: Pending * Provider: Benson Ruiz MD Date: 04/20/2024 Generated for Madhuri rodriguez/Ana/Neysmitting on: 05/07/2024 04:50 PM EST
[2025-03-06 13:36] VITALS: BP 124/71; PULSE 98; O2SAT 98
[2025-03-06 13:55] VITALS: BP 128/65; PULSE 97; RESP 20; TEMP 37.9; O2SAT 97
--- NOTE | 2025-03-06 13:56 | ED.URI ---
HPI - URI/Sore Throat General Chief Complaint: Upper Respiratory Symptoms Stated Complaint: FLU LIKE SYMPTOMS Time Seen by Provider: 03/06/25 17:39 Source: patient, RN notes reviewed and old records reviewed Mode of arrival: ambulatory History of Present Illness ED Provider: Sondra Stoll PA-C HPI Narrative: 50-year-old female with a past medical history of GERD, HTN, RA, oa, fibromyalgia, interstitial lung as 80s, presenting to the ED complaining of myalgias, congestion, fever, headache, abdominal discomfort, nausea and vomiting x2 days. Denies urinary symptoms, diarrhea Related Data Home Medications ?Medication ?Instructions ?Recorded ?Confirmed albuterol sulfate 2.5 mg/3 mL 2.5 mg inhalation Q4H PRN wheezing 11/11/24 02/15/25 (0.083 %) solution for nebulization esomeprazole magnesium 40 mg 40 mg PO DAILY PRN indigestion 11/11/24 02/15/25 capsule,delayed release ferrous sulfate 325 mg (65 mg 325 mg PO DAILY 11/11/24 02/15/25 iron) tablet losartan 50 mg tablet 50 mg PO DAILY 11/11/24 02/15/25 cetirizine 10 mg tablet 10 mg PO DAILY 02/15/25 02/15/25 Previous Rx's ?Medication ?Instructions ?Recorded certolizumab pegol 400 mg/2 mL 400 mg (2 mL) subcut Q2W 3 doses 02/25/25 (200 mg/mL x2) subcutaneous #3 ea syringe kit (Cimzia Starter Kit) certolizumab pegol 400 mg/2 mL 400 mg (2 mL) subcut Q4W #1 ea 02/25/25 (200 mg/mL x2) subcutaneous syringe kit (Cimzia) hydroxychloroquine 200 mg tablet 400 mg (2 x 200 mg) PO DAILY 90 02/25/25 (Plaquenil) days #180 tabs prednisone 5 mg tablet 5 mg PO DAILY #30 tabs 02/25/25 sulfasalazine 500 mg 1.5 g (3 x 500 mg) PO BID 90 days 02/25/25 tablet,delayed release #540 tabs Allergies Allergy/AdvReac Type Severity Reaction Status Date / Time Ramicade Allergy Unknown stomach Uncoded 03/06/25 13:59 upset Review of Systems Review of Systems: Yes all other systems are reviewed and are negative Constitutional: Constitutional: Reports as per [facility] Past Medical History Attestation statement: The following information was validated with the patient. Source: old records reviewed Medical History Allergies GERD (gastroesophageal reflux disease) HTN (hypertension) Rheumatoid arthritis Osteoarthritis Migraines Interstitial lung disease Fibromyalgia Surgical History History of lung biopsy History of cholecystectomy Hx of tonsillectomy Previous section Social History Social History Household Members: Family Housing: House Do you presently have visiting nurse or other home services: No Patient Tobacco Use Status: Former Tobacco user e-Cigarette/Vaping Use: Never Used Second Hand Smoke Exposure: No Advance Directives: No Advance Directives Information Provided: Yes Do you have a plan to hurt others: No Plan service: No Physical Exam Vital Signs: Vital Signs: Last Vital Signs Temp 100.2 F 03/06/25 13:55 Pulse 97 03/06/25 13:55 Resp 20 03/06/25 13:55 BP 128/65 03/06/25 13:55 Pulse Ox 97 03/06/25 13:55 O2 Del Method Room Air 03/06/25 13:55 BMI result Body Mass Index 30.0 Const: General: cooperative, healthy appearing and no acute distress Orientation/consciousness: patient oriented x3 Limitations: no limitations HEENT: Head: Yes normal to inspection and Yes atraumatic Ears: hearing grossly normal bilaterally General nose exam: Normal external nose present Face and sinus: Yes normal facial exam Mouth: Normal oral and palatal mucosa present Throat: Yes posterior oropharynx normal, Yes uvula midline, No peritonsillar mass, No uvula laterally displaced and No uvular edema Eyes: General: appearance normal, both eyes and all related structures EOM: EOMs intact bilaterally Neck: Neck: Yes normal visual inspection and Yes no meningeal signs Resp: Effort & Inspection: normal respiratory effort, no respiratory distress and no stridor Auscultation: clear to auscultation bilaterally, no rhonchi and no wheezes Cardio: Rate: regular rate Heart sounds: S1 normal heart sound present and S2 normal heart sound present GI: Inspection: Yes normal to inspection Palpation (GI): Soft to palpation, nontender, no guarding and not rigid Skin: Rashes: no rashes Wounds: no wounds Neuro: General: patient oriented x3, tone normal and no meningeal signs Cranial nerves: Yes CN's II-XII intact bilaterally Gait exam (Neuro): Normal gait present Extrem: General: Yes normal to inspection Course Course Course Narrative: This is a Rapid Medical Exam performed in triage by Sondra Stoll PA-C. Full HPI, ROS and PE to be performed by primary ED provider. 50 yo F w/pmhx Migraines, fibromylagia, GERD, HTN presenting to the ED c/o fever, BRANCH, abdominal pain, N/V x2 days. denies taking any Tylenol/Motrin PE: NAD,nontoxic appearing, abdomen soft & nontender Plan: SARs, Rapid strep 6:28 PM 03/06/2025 (Sondra Stoll PA-C): COVID, flu, RSV and rapid strep negative. Results discussed with patient. She is tolerating p.o. in the ED without difficulty. Would like to be discharged home Results discussed with patient including worrisome signs and symptoms and strict return precautions, and when to return to the emergency department. They verbalized understanding and feel safe for discharge at this time. Medications Administered Discontinued Medications Generic Name Dose Route Start Last Admin Trade Name Pranavq PRN Reason Stop Dose Admin Ibuprofen 600 mg 03/06/25 17:47 03/06/25 18:22 Ibuprofen 600 Mg Tablet PO 03/06/25 17:48 600 mg ONCE ONE Administration Medical Decision Making Medical Decision Making [facility] Narrative: 50-year-old female with a past medical history of GERD, HTN, RA, oa, fibromyalgia, interstitial lung as 80s, presenting to the ED complaining of myalgias, congestion, fever, headache, abdominal discomfort, nausea and vomiting x2 days. On exam low-grade temp 100.2, NAD, nontoxic appearing, oropharynx WNL, lungs CTA, abdomen is soft and nontender. Concern for viral illness. Lower suspicion for acute appendicitis/diverticulitis, cholecystitis or pancreatitis at this time. No evidence of MENAGERIE CARETAKER or retropharyngeal abscess Plan: Rapid strep, viral testing, p.o. trial Please refer to course for remaining clinical decision making, interpretation of labs/imaging results, and discussions with consultants and/or family members. Differential Diagnosis Differential Diagnoses: The differential diagnosis associated with the presentation includes As above Lab Data MDM Lab Attestation statement: I reviewed the patient's lab results. Labs: Lab Results 03/06/25 Range/Units 14:56 Influenza Type A (PCR) NEGATIVE (Negative) Influenza Type B (PCR) NEGATIVE (Negative) RSV RNA Qual (PCR) NEGATIVE (Negative) SARS-CoV-2 RNA (RT-PCR) NEGATIVE (Negative) S. pyogenes GrpA [facility] Negative (Negative) Radiology Impression Discussion of test interpretation with radiology: I have reviewed the radiologist's reading. External Record Review External record reviewed: Inpatient record, Office record, Outpatient record, Prior outpatient labs, Prior outpatient radiology, Primary care record and Outside ED record Tests considered The following testing was considered but not selected: As above Prescription Management I considered prescription management with: Pain Medication, Antiviral and Antibiotic Chronic Conditions Patient?s care impacted by: Other Social Determinants Patient?s care significantly limited by Social Determinants of Health including: Other Social Determinant of Health Discharge Plan Discharge Clinical Impression: Acute viral syndrome Patient Disposition: Home, Self-Care Instructions: Viral Syndrome (ED) Additional Instructions: You have a virus. You tested negative for COVID, flu, RSV and strep throat No antibiotics are indicated at this time Make sure you are staying hydrated. Drink plenty of fluids. Rest Alternate Tylenol and Motrin at home as needed for body aches and fever Follow-up with your doctor. If symptoms persist or worsen return to the emergency department *If you are a child & not tolerating liquid or urinating for more than 6 hours, or fevers are uncontrolled with medications at home, return to the emergency department* Prescriptions: No Action cetirizine 10 mg tablet 10 mg PO DAILY losartan 50 mg tablet 50 mg PO DAILY albuterol sulfate 2.5 mg /3 mL (0.083 %) solution for nebulization 2.5 mg inhalation Q4H PRN (Reason: wheezing) ferrous sulfate 325 mg (65 mg iron) tablet 325 mg PO DAILY esomeprazole magnesium 40 mg capsule,delayed release(DR/EC) 40 mg PO DAILY PRN (Reason: indigestion) sulfasalazine 500 mg tablet,delayed release (DR/EC) 1.5 g PO BID 90 Days Qty: 540 0RF hydroxychloroquine [Plaquenil] 200 mg tablet 400 mg PO DAILY 90 Days Qty: 180 1RF prednisone 5 mg tablet 5 mg PO DAILY Qty: 30 2RF Rx Instructions: Take with food Cimzia Starter Kit 400 mg/2 mL (200 mg/mL x 2) syringe kit 400 mg subcut Q2W Qty: 3 0RF Rx Instructions: administer as 2 equally divided doses at 2 different sites in abdomen or thigh. Induction Week 0, 2 and 4. First dose administration in office with nurse visit. Labs due 1 month after 1st dose. Cimzia 400 mg/2 mL (200 mg/mL x 2) syringe kit 400 mg subcut Q4W Qty: 1 2RF Rx Instructions: administer as 2 equally divided doses at 2 different sites in abdomen or thigh Referrals: Mary Jane Suarez MD [Primary Care Provider, Internal Medicine] - 1 week Print Language: Faroese
[2025-03-06 15:29] LABS: Strep A Nucleic Acid Negative (Negative)
[2025-03-06 15:41] LABS: Resp Syncy Virus RNA Qual PCR NEGATIVE (Negative); SARS COV2 PCR INHOUSE NEGATIVE (Negative)
--- OUTSIDE RECORDS SUMMARY | 2025-03-06 16:50 | XMS_ITS | Patient Health Record ---
Author Organization [facility] Address [address] [place] [address] Care Team Providers Care Pediatric Licensed Practical Nurse Name Role Phone Mary Jane Sheppard MD Primary Care Provider Vamshi Valderrama Jr [facility] Results Component Value Reference Range Flag Notes FL guidance in OR Reviewed date:02/18/2025 08:36:23 AM Interpretation: Performing Lab: Notes/Report: [address] [address] Fluoroscopy Report Signed Patient: Samantha Mcgrath MR#: [id number] : 1975 Acct:[id number] Age/Sex: 50 / F ADM Date: 02/15/25 Loc: .S3 380-[address]: Stanford Nelson MD Ordering Physician: Vamshi Ruiz MD Date of Service: 02/17/25 Procedure(s): FL guidance in OR Accession Number(s): [id number] cc: Vamshi Ruiz MD; MARY JANE SHEPPARD [...] by: Alejandra Hickman MD 02/17/2025 03:30 PM [facility] Dictated By: Alejandra Hickman MD Signed By: <Electronically signed by Alejandra Hickman MD in OV> 02/17/25 1530 DD/ 1329 TD/TT: 02/17/25 1432 Tooth Clerk: WENDY Complete Blood Count no Diff Reviewed date:02/18/2025 08:36:23 AM Interpretation: Performing Lab:[address] [phone] Notes/Report: White Blood Count 8.1 4.8-10.8 X10*3/uL [...] NRBC Abs Auto 0.000 0.0-0.012 X10*3/uL N Comprehensive Met. Panel Reviewed date:02/18/2025 08:36:23 AM Interpretation: Performing Lab:[address] [phone] Notes/Report: Sodium 141 135-145 mmol/L N Potassium [...] N Alkaline Phosphatase 273 39-117 U/L H Liver Panel Reviewed date:02/18/2025 08:36:23 AM Interpretation: Performing Lab:[facility], [address] [place] [phone] Notes/Report: Bilirubin Direct 0.8 0.0-0.5 mg/dL H Complete Blood Count Auto Di ff Reviewed date:02/18/2025 08:36:23 AM Interpretation: Performing Lab:[facility], [address] [place] [phone] Notes/Report: White Blood Count 4.2 4.8-10.8 X10*3/uL [...] Information Encounters Encounter Location Date Provider Diagnosis [facility] Inpatient [address] [place] [id number] 02/17/2025 Vamshi Ruiz Jr Plan Of Treatment No Information Insurance Providers Payer Name Payer Address Payer Phone Subscriber Number Group Number Insured Name Patient Relationship to Insured Coverage Start Date Coverage End Date [facility] [address] [place] [phone] [id number] SAMANTHA MCGRATH Self - patient is the insured
--- OUTSIDE RECORDS SUMMARY | 2025-03-06 16:50 | XMS_ITS | Clinical Summary ---
Author Organization [facility] Address [address] [place] [address] Phone Care Team Providers Care Soft Tile Setter Name Role Phone Mary Jane Suarez MD Primary Care Provider [phone] Allergies Active Allergy Reactions Criticality Noted Date Comments Infliximab Medium 12/25/2022 Nausea and vomiting Medications losartan (COZAAR) 25 MG tabletIndicatio ns:hypertension Take 25 mg by mouth daily. Indications: high blood pressure Active albuterol-budes onide 90-80 mcg/actuation HFAAIndications :bronchospasm prevention with asthma,as needed Take 1 Bottle by nebulization daily. Indications: bronchospasm prevention with asthma, as needed Active ferrous sulfate 325 mg (65 mg hoh iron) tablet Take 1 tablet by mouth [...] hydration, inhaling warm vapor twice daily, using [place] pot, Vicks and Sudafed consider urgent care [...] sure to inform any new MD, PA, HERBARIUM CURATOR about treatment with Orencia particularly in emergency [...] of age (p/w ILD); follows with corporate aircraft mechanic Dr. Piper through [facility] Medication hx: Methotrexate resulted in hair [...] would coordinate care with her established corporate aircraft mechanic. Assessment & Plan (04/14/2024 12:18 PM EST): [...] infusion was sometime in mid December adequately [place] infusion. She has another infusion appointment coming up in the middle of February. She has stable interstitial lung disease with stable dyspnea on exertion and follows with Dr. Piper. Family History Medical History Relation Comments No [...] (#1) 2024 , 12/15/2022, 12/14/2021 COVID-19 VACCINE (5 - 2025-26 season) 2024 04/09/2022, 04/22/2021, 07/02/2020, Additional history exists CREATININE LEVEL 08/06/2025 08/06/2024, 07/2024, 04/14/2024, Additional history exists POTASSIUM LEVEL 08/06/2025 08/06/2024, 0207/2024, 04/14/2024, Additional history exists SCREENING FOR DIABETES [...] EDT) SODIUM 135 133 - 146 mmol/L [facility] POTASSIUM 3.6 3.3 - 5.1 mmol/L [facility] CHLORIDE 100 96 - 108 mmol/L [facility] CO2 26 21 - 35 mmol/L [facility] BUN 12 6 - 19 mg/dL [facility] CREATININE 0.60 0.5 - 1.5 mg/dL [facility] GLUCOSE 85 70 - 99 mg/dL [facility] ALBUMIN 4.3 3.9 - 4.8 g/dL [facility] TOTAL PROTEIN 7.8 6.5 - 8.0 g/dL [facility] CALCIUM 9.5 8.4 - 10.3 mg/dL [facility] ALKALINE PHOSPHATASE 75 39 - 117 U/L [facility] TOTAL BILIRUBIN 0.4 0.0 - 1.2 mg/dL [facility] AST 25 0 - 37 U/L [facility] ALT 10 0 - 40 U/L [facility] GLOBULIN 3.5 1 - 4.8 g/dL [facility] EGFR 111 >59 mL/min/1.7 3m2 [facility] Comment:Estimated glomerular filtration rate calculated using the CKD-EPI refit equation. ANION GAP 13 10 - 20 mmol/L [facility] Blood 08/06/2024 10:3 6 AM EDT 08/06/2024 10:50 AM EDT Franci Tejeda MD, MPH LAB BLOOD BKR ORDERABLES Final Result Performing Organization Address City/[facility]/ZIP Co de Phone Number [address] [address] * Hepatitis C antibody, qualitative (08/06/2024 10:36 AM EDT) HCV NON-REACTIV E NON-REACTI VE [facility] Blood 08/06/2024 10:3 6 AM EDT 08/06/2024 10:50 AM EDT Franci Tejeda MD, MPH LAB BLOOD BKR ORDERABLES Final Result [address] [address] from Last 3 Months or Most Recently Relevant to Health Maintenance Insurance [facility] [employer] ACO [facility] [place] [address] [place] [address] HEALTHY PARTNERSHIP ACO [facility] [employer] Member Subscriber Plan / Payer (Ef fective 2022-Present) Name:Mcgrath Lizbeth Relation to Subscriber:Self Name:Lizbeth Mcgrath Payer ID:Not on file Type:Medicaid Address: [place] [id number] Care Teams Soft Tile Setter Relationship Specialty Start Date End Date Mary Jane Suarez MD [address] [place] [address] PCP - General Internal Medicine 12/04/22 Additional Source Comments The information contained in this document represents components of the legal health record. It is not the complete legal health record.[facility]
--- OUTSIDE RECORDS SUMMARY | 2025-03-06 16:50 | XMS_ITS | Encounter Summary ---
Author Organization [facility] Address [address] [place] [address] Phone Care Team Providers Care Hand Spinner Name Role Phone Mary Jane Suarez MD Primary Care Provider [phone]- [phone] Encounter Details Date Type Department Care Team (Late st Contact Info) Description 04/19/2024 Procedure Pass [facility], Ct Scan - [facility] [address] [place] [address] Social History Tobacco Use Types Packs/Day Years [...] documented as of this encounter Care Teams Hand Spinner Relationship Specialty Start Date End Date Mary Jane Suarez MD [address] [address] PCP - General Internal Medicine 12/04/22 documented as of this encounter Additional Source Comments The information contained in this document represents components of the legal health record. It is not the complete legal health record.[facility]
--- OUTSIDE RECORDS SUMMARY | 2025-03-06 16:51 | XMS_ITS | Encounter Summary ---
Author Organization [facility] Address [address] [place] [address] Phone Care Team Providers Care Ice Cream Vault Worker Name Role Phone Mary Jane Suarez MD Primary Care Provider [phone]- [phone] Reason for Visit * Reason Comments Medication Refill Encounter Details Date Type Department Care Team (Late st Contact Info) Description 12/01/2024 Refill [facility] [address] [place] [address] Maria Victoria Desir MD [address] [facility], [address] [place] [address] [email or web address] Medication Refill Social History Tobacco Use Types [...] factor documented in this encounter Care Teams Ice Cream Vault Worker Relationship Specialty Start Date End Date Mary Jane Suarez MD [address] [place] [address] PCP - General Internal Medicine 12/04/22 documented as of this encounter Additional Source Comments The information contained in this document represents components of the legal health record. It is not the complete legal health record.[facility]
--- OUTSIDE RECORDS SUMMARY | 2025-03-06 16:51 | XMS_ITS | Clinical Summary ---
Author Organization [facility] Address [address] [place] [address] Phone Care Team Providers Care Package Designer Name Role Phone Mary Jane Suarez MD Primary Care Provider [phone] Allergies No known active allergies Medications acetaminophen [...] 11:59 PM EDT Hospital Encounter [facility] - [place] [address] [place] [address] ILD (interstitial lung disease) ([facility], [facility] V28) Discharge Disposition: Home or Self Care 12/19/2024 11:30 AM EDT Office Visit Pulmonology - [address] [place] [phone] Hank Piper MD ILD (interstitial lung disease) ([facility] V[facility], [facility] V28) (Primary Dx); Rheumatoid arthritis, involving unspecified site, unspecified whether rheumatoid factor present ([facility], [facility] V28) 12/09/2024 10:49 AM EDT - 12/09/2024 11:59 PM EDT Hospital Encounter [facility] [address] [place] [phone] Pulmonary fibrosis ([facility], [facility] V28) Discharge Disposition: Home or Self Care from Last 3 Months Surgical History Surgery Date Site/Laterality Comments CHOLECYSTECTOMY PROCEDURE: HISTORICAL CHOLECYSTECTOMY Medical History Medical History Date Comments Rheumatoid arthritis, adult ([facility], [facility] V[facility]) 07/24/2017 DX:Rheumatoid arthritis, liane lt ([facility]) Asthma 07/24/2017 DX:Asthma Chronic interstitial lung di sease ([facility], [facility] V28) 07/24/2017 DX:Chronic interstitial ailyn g disease ([facility]) Chronic sinusitis 07/24/2017 DX:Chronic sin usitis [...] 9:45 AM EDT Office Visit Pulmonology - [address] [place] [address] Hank Piper MD [address] [place] [phone] Health Maintenance Due Date Last Done [...] 8:51 AM EDT ILD (interstitial lung disease) ([facility] V24, [facility] V28) HC SPIROMETRY BRONCHODILATION RESPONSIVENESS PRE/POST BRONCHODILATOR ADMINISTRATION Routine 12/09/2024 11:39 AM EDT Pulmonary fibrosis ([facility] V24, [facility] V28) from Last 3 Months Results [...] Signed Date: 12/25/2024 16:27 ET Workstation ID: [id number] Transcribed By: Self Edit Transcribed Date: 12/25/2024 [...] Signed Date: 12/25/2024 16:27 ET Workstation ID: [id number] Transcribed By: Self Edit Transcribed Date: 12/25/2024 [...] from the original result were not included. [facility] [address] [place] [id number] Pulmonary Functions Report Date of service: 12/09/24 Patient Name: Samantha Mcgrath Date of : 1975 Age: 49 y.o. Gender: female Ordering Provider: Hank Piper MD Diagnosis listed on Order: Pulmonary fibrosis ([facility] V24, [facility] V28) Reason for Exam: Order Questions [...] Final Result from Last 3 Months Insurance [facility] MEDICAID ADVANTAGE Care Teams Package Designer Relationship Specialty Start Date End Date Mary Jane Suarez MD [address] [place] [address] PCP - General Internal Medicine 05/28/12
--- NOTE | 2025-03-06 17:54 | PC.NURSE ---
Patient given PO fluids and crackers
[2025-03-06 18:35] VITALS: BP 122/70; PULSE 90; RESP 18; TEMP 36.2; O2SAT 99
[2025-03-06 18:39] VITALS: BP 122/70; PULSE 90; RESP 18; TEMP 36.2; O2SAT 99
== END 2025-03-06 18:41 | disposition home or self-care (01) ==
PROVIDERS: Physician Assistant; Emergency Provider Emergency Medicine; PCP Internal Medicine
DX: B34.9 Viral infection, unspecified (principal); R50.9 Fever, unspecified; R51.9 Headache, unspecified; R11.2 Nausea with vomiting, unspecified; Z03.818 Encounter for observation for suspected exposure to other biological agents ruled out
CPT/HCPCS: 87637; 87651; 99283